=== PATIENT | female | born 1965 | race Caucasian/White ===

== ENCOUNTER 2017-07-22 10:31 | Inpatient (IN) | payer OTHER ==
[2017-07-22 11:34] VITALS: BMI 22.6
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
[2017-07-22] MEDS ORDERED: METHADONE HCL 10 MG TABLET (FOR DETOX USE ONLY) PO ONE ×2 (14:15→23:00)
[2017-07-22] MEDS ORDERED: MENTHOL/PHENOL 1 EACH UD MM PRN (14:15)
[2017-07-22] MEDS ORDERED: guaiFENesin/D-METHORPHAN HB 10 ML UNIT-DOSE CUPS PO PRN (14:15)
[2017-07-22] MEDS ORDERED: IBUPROFEN 400 MG TABLET (FP) PO PRN (14:15)
[2017-07-22] MEDS ORDERED: P-EPHED 60MG/TRIPROLIDI 2.5MG TABLET PO PRN (14:15)
[2017-07-22] MEDS ORDERED: MAGNESIUM HYDROX 2400MG/30ML ORAL SUSPENSION 30 ML CUP PO PRN (14:15)
[2017-07-22] MEDS ORDERED: ACETAMINOPHEN 325 MG TABLET (FP) PO PRN (14:15)
[2017-07-22] MEDS ORDERED: NICOTINE POLACRILEX 2 MG GUM BC PRN (14:15)
[2017-07-22] MEDS ORDERED: MAGNESIUM CITRATE 300 ML BOTTLE PO PRN (14:15)
[2017-07-22] MEDS ORDERED: MAG HYDROX/AL HYDROX/SIMETH 30 ML UNIT-DOSE CUP PO PRN (14:15)
[2017-07-22] MEDS ORDERED: LOPERAMIDE HCL 2 MG CAPSULE PO PRN (14:15)
[2017-07-22] MEDS ORDERED: hydrOXYzine PAMOATE 50 MG CAPSULE (FP) PO PRN (14:15)
[2017-07-22] MEDS ORDERED: diazePAM 5 MG TABLET PO ONE (15:00)
[2017-07-22] MEDS: BACITRACIN 0.9 GM PACKET TP SCH (15:09)
[2017-07-22] MEDS: NICOTINE 14 MG/24 HOURS TOPICAL PATCH TD SCH (15:09)
--- NOTE | 2017-07-22 16:20 | CONSULT ---
[facility] Psychiatric Consult - Data Date of interview: 07/22/17 Admission source: [facility] Identifying data: Readmission to [facility] for this 51 y/o AA female seeking detox treatment on for heroin,cocaine and benzodiazepine dependence.Patient is ,a mother of four,domiciled,unemployed and supported on [employer] funds. Substance Abuse History: Confirmed by the patient in this interview. Smoking Cessation. Smoking history: Current every day smoker. Have you smoked in the past 12 months: Yes. Aproximately how many cigarettes per day: 4. Cigars Per Day: 0. Hx Chewing Tobacco Use: No. Initiated information on smoking cessation : Yes. 'Breaking Loose' booklet given: 07/22/17 (GIVEN ON UNIT.). - Substance & Tx. History. Hx Alcohol Use: No. Hx Substance Use: Yes. Substance Use Type : Cocaine, Heroin, Tranquilizers. Hx Substance Use Treatment: Yes (Previous Rehab admission at [facility] (2014); previous Detox admission (2004).). - Substances Abused. Crack. Route: Smoking. Frequency: Daily. Amount used: $80. Age of first use: 21. Date of Last Use: 07/21/17. Heroin. Route: Injection. Frequency: Daily. Amount used: 8 bags. Age of first use: 19. Date of Last Use: 07/21/17. Klonopin. Route: Oral. Frequency: Daily. Amount used: 3 mg. Age of first use: 48. Date of Last Use: 07/22/17 Medical History: HIV infection since 1988,hepatitis C,gastritis,anemia and diabetes mellitus. Psychiatric History: No reported history of psychiatric hospitalizations.Patient indicates that she used to be followed at [facility] in the [place].Diagnosed with Mood Disorder and treated in the past with seroquel (months ago as per self-report).Dropped out of [facility] care more than four months ago.Ms Gonzalez states that she is interested in resuming seroquel for chronic insomnia.Patient is an unreliable historian.Review of pharmacy claims indicates recent scripts for abilify,zolpidem,clonazepam (06/09/17) at [facility].Ms Gonzalez is made aware of this discrepancy.No reaction.Patient maintains preference for seroquel. Physical/Sexual Abuse/Trauma History: Patient denies. Additional Comment: Urine Drug Screen Results: DIA-Cocaine, OPI-Opiates, BZO- Benzodiazepines, MTD-Methadone, TCA-Tricyclic Antidepressant, OXY- Oxycodone.Noted. Mental Status Exam - Mental Status Exam Alert and Oriented to: Time, Place, Person Cognitive Function: Good Patient Appearance: Well Groomed (thin habitus,frail appearance,short stature) Mood: Withdrawn, Hopeful Affect: Constricted Patient Behavior: Appropriate, Cooperative Speech Pattern: Clear Voice Loudness: Normal Thought Process: Goal Oriented Thought Disorder: Not Present Hallucinations: Denies Suicidal Ideation: Denies Homicidal Ideation: Denies Insight/Judgement: Poor Sleep: Poorly, Difficulty falling asleep Appetite: Good Muscle strength/Tone: Normal Gait/Station: Normal Psychiatric Findings - Problem List ([place] 1, 2,3) (1) Opioid dependence with withdrawal Current Visit: Yes Status: Acute (2) Cocaine dependence, uncomplicated Current Visit: Yes Status: Acute (3) Sedative, hypnotic or anxiolytic dependence with withdrawal, uncomplicated Current Visit: Yes Status: Acute (4) Nicotine dependence Current Visit: Yes Status: Chronic Qualifiers: Nicotine product type: cigarettes Substance use status: uncomplicated Qualified Code(s): F17.210 - Nicotine dependence, cigarettes, uncomplicated (5) Substance induced mood disorder Current Visit: Yes Status: Acute (6) Asthma Current Visit: Yes Status: Chronic Qualifiers: Asthma severity: mild persistent Asthma complication type: uncomplicated Qualified Code(s): J45.30 - Mild persistent asthma, uncomplicated (7) Diabetes mellitus type II, non insulin dependent Current Visit: Yes Status: Chronic (8) HCV antibody positive Current Visit: Yes Status: Chronic (9) HIV (human immunodeficiency virus infection) Current Visit: Yes Status: Chronic (10) Insomnia Current Visit: Yes Status: Acute - Initial Treatment Plan Initial Treatment Plan: Psychoeducation.Detoxification.Seroquel 50 mg po hs.Side effects/benefits discussed with the patient.She agrees with this careplan.Observation.
[2017-07-22] MEDS: metFORMIN HCL 500 MG TABLET (FP) PO SCH (17:38)
[2017-07-22] MEDS ORDERED: QUEtiapine FUMARATE 50 MG TABLET PO SCH (22:00)
[2017-07-22] MEDS: MONTELUKAST NA 10 MG TABLET PO SCH (22:35)
[2017-07-22] MEDS: THIAMINE HCL 100 MG TABLET (FP) PO SCH (22:35)
[2017-07-22] MEDS: diazePAM 5 MG TABLET PO SCH (22:35)
[2017-07-23] MEDS ORDERED: METHADONE HCL 10 MG TABLET ONE (04:48)
[2017-07-23] MEDS ORDERED: METHADONE HCL 40 MG DISPERSABLE TABLET ONE (04:48)
[2017-07-23] MEDS: diazePAM 5 MG TABLET PO SCH ×3 (05:24→22:30)
[2017-07-23] MEDS: METHADONE 80 MG, METHADONE 20 MG PO SCH (05:24)
[2017-07-23] MEDS ORDERED: METHADONE HCL 10 MG TABLET PO SCH (06:00)
[2017-07-23] MEDS: metFORMIN HCL 500 MG TABLET (FP) PO SCH ×2 (06:43→17:35)
--- NOTE | 2017-07-23 08:57 | PN ---
Psychiatric Progress Note Vital Signs: Vital Signs Period Temp Pulse Resp BP Sys/Hoang Pulse Ox Last 24 Hr 97.3 F-99.3 F 99-105 18-20 98-105/64-66 Date of Session: 07/23/17 Chief Complaint:: Insomnia HPI: Patient reports taking prior to admission Seroquel 100mg po qhs with good response Current Medications: Active Medications Generic Name Dose Route Start Last Admin Trade Name Freq PRN Reason Stop Dose Admin Acetaminophen 650 mg 07/22/17 14:15 07/22/17 15:08 Tylenol - PO 650 mg Q4H PRN Administration FEVER OR PAIN Al Hydroxide/Mg Hydroxide 30 ml 07/22/17 14:15 Mylanta Oral Suspension - PO Q6H PRN DYSPEPSIA Albuterol Sulfate 2 puff 07/22/17 14:21 Ventolin Hfa Inhaler - IH Q4H PRN ASTHMA Bacitracin 0.9 gm 07/22/17 15:00 07/22/17 15:09 Bacitracin - TP 0.9 gm DAILY RICKY Administration Diazepam 10 mg 07/22/17 14:15 Valium - PO 07/25/17 14:16 Q4H PRN WITHDRAWAL(CONT SUBST) Diazepam 5 mg 07/22/17 22:00 07/23/17 05:24 Valium - PO 07/23/17 22:01 5 mg TID RICKY Administration Diazepam 5 mg 07/24/17 10:00 Valium - PO 07/25/17 22:01 BID RICKY Diazepam 5 mg 07/26/17 10:00 Valium - PO 07/26/17 10:01 DAILY RICKY Diphenhydramine HCl 50 mg 07/22/17 14:15 Benadryl - PO HSMR1 PRN INSOMNIA Eucalyptus/Menthol/Phenol/Sorbitol 1 each 07/22/17 14:15 Cepastat Lozenge - MM Q4H PRN SORE THROAT Guaifenesin 10 ml 07/22/17 14:15 Robitussin Dm - PO Q6H PRN COUGH Hydroxyzine Pamoate 50 mg 07/22/17 14:15 Vistaril - PO Q4H PRN AGITATION Ibuprofen 400 mg 07/22/17 14:15 Motrin - PO Q6H PRN SEVERE PAIN Loperamide HCl 4 mg 07/22/17 14:15 Imodium - PO Q6H PRN DIARRHEA Magnesium Citrate 300 ml 07/22/17 14:15 Citroma - PO Q48H PRN CONSTIPATION Magnesium Hydroxide 30 ml 07/22/17 14:15 Milk Of Magnesia - PO DAILY PRN CONSTIPATION Metformin HCl 500 mg 07/22/17 16:30 07/23/17 06:43 Glucophage - PO 500 mg BIDAC RICKY Administration Methadone HCl 80 mg/ Methadone 100 mg 07/23/17 06:00 07/23/17 05:24 HCl 20 mg PO 100 mg DAILY@0600 RICKY Administration Montelukast Sodium 10 mg 07/22/17 22:00 07/22/17 22:35 Singulair - PO 10 mg HS RICKY Administration Nicotine 14 mg 07/22/17 15:00 07/22/17 15:09 Nicoderm Patch - TD 14 mg DAILY RICKY Administration Nicotine Polacrilex 2 mg 07/22/17 14:15 Nicorette Gum - BC Q2H PRN NICOTINE REPLACEMENT RX Multivit/Folic Acid/Iron 1 tab 07/23/17 10:00 Vitamins (Sjr) - PO DAILY RICKY Pseudoephedrine/Triprolidine 1 combo 07/22/17 14:15 Actifed - PO TID PRN NASAL CONGESTION Quetiapine Fumarate 50 mg 07/22/17 22:00 07/22/17 22:35 Seroquel - PO 50 mg HS RICKY Administration Thiamine HCl 100 mg 07/22/17 22:00 07/22/17 22:35 Vitamin B1 - PO 100 mg HS RICKY Administration Medication(s) Change(s): Seroquel 100mg po qhs Mental Status Exam - Mental Status Exam Alert and Oriented to: Place, Person Cognitive Function: Fair Patient Appearance: Unkempt Mood: Anxious Affect: Mood Congruent Patient Behavior: Cooperative Speech Pattern: Appropriate Voice Loudness: Normal Thought Process: Goal Oriented Thought Disorder: Being Controlled Hallucinations: Denies Suicidal Ideation: Denies Homicidal Ideation: Denies Insight/Judgement: Fair Sleep: Difficulty falling asleep Appetite: Fair Muscle strength/Tone: Mild Hypotonicity Gait/Station: Shuffling Additional Comments: Seroquel 100mg po qhs Psychiatric Treatment Plan - Problem List (1) Cocaine dependence, uncomplicated Current Visit: Yes (2) Opioid dependence with withdrawal Current Visit: Yes (3) Sedative, hypnotic or anxiolytic dependence with withdrawal, uncomplicated Current Visit: Yes (4) Substance induced mood disorder Current Visit: Yes (5) Methadone maintenance therapy patient Current Visit: Yes Comment: last dose today with methadone 110mg. (6) Nicotine dependence Current Visit: Yes Qualifiers: Nicotine product type: cigarettes Substance use status: uncomplicated Qualified Code(s): F17.210 - Nicotine dependence, cigarettes, uncomplicated (7) Cocaine dependence Current Visit: No (8) Major depressive disorder, recurrent, moderate Current Visit: No (9) Opioid abuse Current Visit: No (10) Opioid dependence Current Visit: No Initial treatment plan: Seroquel 100mg po qhs
[2017-07-23] MEDS ORDERED: METHADONE HCL 10 MG TABLET (FOR DETOX USE ONLY) PO SCH (10:00)
[2017-07-23 10:04] LABS: MCH 25.2 pg (25.7-33.7); MCHC 31.6 g/dl (32.0-36.0); MEAN CELL VOLUME 79.8 fl (80-96); MEAN PLT VOLUME 10.1 fl (7.5-11.1); PLATELET COUNT 197 K/MM3 (134-434); RDW 13.9 % (11.6-15.6); WHITE BLOOD COUNT 3.6 K/mm3 (4.0-10.0)
[2017-07-23 10:04] LABS: URINE APPEARANCE TURBID; URINE BILIRUBIN NEGATIVE (NEGATIVE); URINE BLOOD NEGATIVE (NEGATIVE); URINE COLOR YELLOW; URINE GLUCOSE (UA) NEGATIVE (NEGATIVE); URINE KETONE NEGATIVE (NEGATIVE); URINE NITRITE NEGATIVE (NEGATIVE); URINE UROBILINOGEN NEGATIVE mg/dL (0.2-1.0)
[2017-07-23 10:07] LABS: URINE LEUK ESTERASE 1+ (NEGATIVE); URINE PROTEIN 1+ (NEGATIVE)
[2017-07-23 10:21] LABS: URINE MUCUS MANY
[2017-07-23 10:29] LABS: ALBUMIN 3.9 g/dl (3.4-5.0); ALK PHOS 72 U/L (45-117); ANION GAP 6 (8-16); BILIRUBIN,TOTAL 0.6 mg/dL (0.2-1.0); CALCIUM 9.1 mg/dL (8.5-10.1); CO2 35 mmol/L (21-32); CREATININE 0.9 mg/dL (0.55-1.02); GLUCOSE,RANDOM 72 mg/dL (74-106); SGOT/AST 31 U/L (15-37); SGPT/ALT 27 U/L (12-78); TOT PROT 7.6 g/dl (6.4-8.2)
[2017-07-23] MEDS: NICOTINE 14 MG/24 HOURS TOPICAL PATCH TD SCH (10:56)
[2017-07-23] MEDS: diazePAM 5 MG TABLET PO PRN (10:56)
[2017-07-23] MEDS: BACITRACIN 0.9 GM PACKET TP SCH (10:56)
[2017-07-23] MEDS: PRENATAL VITAMINS W/ FOLIC ACID TABLET (FP) PO SCH (10:56)
--- NOTE | 2017-07-23 11:18 | EKG ---
Test Reason : Blood Pressure : / mmHG Vent. Rate : 076 BPM Atrial Rate : 076 BPM P-R Int : 154 ms QRS Dur : 078 ms QT Int : 394 ms P-R-T Axes : 035 044 -31 degrees QTc Int : 443 ms NORMAL SINUS RHYTHM NONSPECIFIC T WAVE ABNORMALITY ABNORMAL ECG WHEN COMPARED WITH ECG OF 28-AUG-2005 16:42, SINUS RHYTHM HAS REPLACED ECTOPIC ATRIAL RHYTHM Confirmed by GARRETT CORONA MD ([id number]) on 07/23/2017 11:18:00 AM Referred By: Confirmed By:GARRETT CORONA MD
--- NOTE | 2017-07-23 12:14 | PN ---
[facility] CIWA - CIWA Score Nausea/Vomitin-No Nausea/No Vomiting Muscle Tremors: 4-Moderate,w/Arms Extend Anxiety: 3 Agitation: 4-Moderately Restless Paroxysmal Sweats: 3 Orientation: 0-Oriented Tacttile Disturbances: 0-None Auditory Disturbances: 0-None Visual Disturbances: 0-None Headache: 0-None Present CIWA-Ar Total Score: 14 S COWS - Scale Resting Pulse: 0= [place] 80 or Below Sweatin=Flushed/Facial Moisture Restless Observation: 1= Difficult to Sit Still Pupil Size: 0= Normal to Room Light Bone or Joint Aches: 1= Mild Discomfort Runny Nose/ Eye Tearin= Nasal Congestion GI Upset > 30mins: 0= None Tremor Observation of Outstretched Hands: 2= Slight Tremor Visible Yawning Observation: 1= 1-2x During Session Anxiety or Irritability: 1=Feels Anxious/Irritable Goose Flesh Skin: 3=Piloerection COWS Score: 12 S Progress Note (SOAP) Subjective: bodyaches sweats shakes interrupted sleep agitation Objective: 07/23/17 12:13 Vital Signs Temperature 98.6 F 07/23/17 10:05 Pulse Rate 100 H 07/23/17 10:05 Respiratory Rate 20 07/23/17 10:05 Blood Pressure 95/50 07/23/17 10:05 O2 Sat by Pulse Oximetry (%) Laboratory Tests 07/22/17 07/23/17 07/23/17 12:49 05:23 06:00 WBC 3.6 L D RBC 5.08 Hgb 12.8 Hct 40.6 MCV 79.8 L MCH 25.2 L MCHC 31.6 L RDW 13.9 Plt Count 197 D MPV 10.1 D Sodium Potassium Chloride Carbon Dioxide Anion Gap BUN Creatinine Creat Clearance w eGFR POC Glucometer 75 88 Random Glucose Calcium Total Bilirubin AST ALT Alkaline Phosphatase Total Protein Albumin Urine Color Urine Appearance Urine pH Urine Protein Urine Glucose (UA) Urine Ketones Urine Blood Urine Nitrite Urine Bilirubin Urine Urobilinogen Ur Leukocyte Esterase Urine RBC Urine WBC Ur Epithelial Cells Amorphous Urates Urine Mucus 07/23/17 07/23/17 06:00 08:00 WBC RBC Hgb Hct MCV MCH MCHC RDW Plt Count MPV Sodium 139 Potassium 4.1 Chloride 98 Carbon Dioxide 35 H D Anion Gap 6 L BUN 9 Creatinine 0.9 Creat Clearance w eGFR > 60 POC Glucometer Random Glucose 72 L Calcium 9.1 Total Bilirubin 0.6 D AST 31 D ALT 27 D Alkaline Phosphatase 72 Total Protein 7.6 D Albumin 3.9 D Urine Color Yellow Urine Appearance Turbid Urine pH 5.0 D Urine Protein 1+ H Urine Glucose (UA) Negative Urine Ketones Negative Urine Blood Negative Urine Nitrite Negative Urine Bilirubin Negative Urine Urobilinogen Negative Ur Leukocyte Esterase 1+ H Urine RBC None Urine WBC None Ur Epithelial Cells Few Amorphous Urates Many Urine Mucus Many awake/alert ambulating no acute distress Assessment: 07/23/17 12:13 withdrawal sx Plan: continue detox increase fluids
[2017-07-23] MEDS: MONTELUKAST NA 10 MG TABLET PO SCH (22:29)
[2017-07-23] MEDS: diphenhydrAMINE HCL 50 MG CAPSULE PO PRN (22:30)
[2017-07-23] MEDS: THIAMINE HCL 100 MG TABLET (FP) PO SCH (22:30)
[2017-07-23] MEDS: QUEtiapine FUMARATE 100 MG TABLET (FP) PO SCH (22:30)
[2017-07-23] MEDS: ALBUTEROL SO4 6.7 GM HFA INHALER IH PRN (22:31)
[2017-07-24] MEDS ORDERED: METHADONE HCL 40 MG DISPERSABLE TABLET ONE (04:59)
[2017-07-24] MEDS ORDERED: METHADONE HCL 10 MG TABLET ONE (05:00)
[2017-07-24] MEDS: METHADONE 80 MG, METHADONE 20 MG PO SCH (05:48)
[2017-07-24] MEDS: ALBUTEROL SO4 6.7 GM HFA INHALER IH PRN (05:50)
[2017-07-24] MEDS: metFORMIN HCL 500 MG TABLET (FP) PO SCH ×2 (08:17→17:30)
[2017-07-24] MEDS ORDERED: METHADONE HCL 5 MG TABLET (FOR DETOX USE ONLY) PO SCH (10:00)
[2017-07-24] MEDS: PRENATAL VITAMINS W/ FOLIC ACID TABLET (FP) PO SCH (10:56)
[2017-07-24] MEDS: NICOTINE 14 MG/24 HOURS TOPICAL PATCH TD SCH (10:56)
[2017-07-24] MEDS: BACITRACIN 0.9 GM PACKET TP SCH (10:56)
[2017-07-24] MEDS: diazePAM 5 MG TABLET PO SCH ×2 (10:56→22:28)
[2017-07-24] MEDS: LIDOCAINE 5% TOPICAL PATCH TP SCH (10:57)
--- NOTE | 2017-07-24 12:17 | PN ---
[facility] CIWA - CIWA Score Nausea/Vomitin-No Nausea/No Vomiting Muscle Tremors: 4-Moderate,w/Arms Extend Anxiety: 3 Agitation: 3 Paroxysmal Sweats: 3 Orientation: 0-Oriented Tacttile Disturbances: 0-None Auditory Disturbances: 0-None Visual Disturbances: 0-None Headache: 0-None Present CIWA-Ar Total Score: 13 [facility] COWS - Scale Resting Pulse: 1= [place] 81-100 Sweatin= Chills/Flushing Restless Observation: 1= Difficult to Sit Still Pupil Size: 0= Normal to Room Light Bone or Joint Aches: 2= Severe Diffuse Aches Runny Nose/ Eye Tearin= Nasal Congestion GI Upset > 30mins: 0= None Tremor Observation of Outstretched Hands: 2= Slight Tremor Visible Yawning Observation: 2= >3x During Session Anxiety or Irritability: 1=Feels Anxious/Irritable Goose Flesh Skin: 0=Smooth Skin COWS Score: 11 [facility] Progress Note (SOAP) Subjective: shakes sweats body aches irritable Objective: 07/24/17 12:16 Vital Signs Temperature 99.1 F 07/24/17 10:38 Pulse Rate 92 H 07/24/17 10:38 Respiratory Rate 18 07/24/17 10:38 Blood Pressure 106/50 07/24/17 10:38 O2 Sat by Pulse Oximetry (%) Laboratory Tests 07/22/17 07/23/17 07/23/17 12:49 05:23 06:00 WBC 3.6 L D RBC 5.08 Hgb 12.8 Hct 40.6 MCV 79.8 L MCH 25.2 L MCHC 31.6 L RDW 13.9 Plt Count 197 D MPV 10.1 D Sodium Potassium Chloride Carbon Dioxide Anion Gap BUN Creatinine Creat Clearance w eGFR POC Glucometer 75 88 Random Glucose Calcium Total Bilirubin AST ALT Alkaline Phosphatase Total Protein Albumin Urine Color Urine Appearance Urine pH Ur Specific [place] Urine Protein Urine Glucose (UA) Urine Ketones Urine Blood Urine Nitrite Urine Bilirubin Urine Urobilinogen Ur Leukocyte Esterase Urine RBC Urine WBC Ur Epithelial Cells Amorphous Urates Urine Mucus RPR Titer 07/23/17 07/23/17 07/23/17 06:00 06:00 08:00 WBC RBC Hgb Hct MCV MCH MCHC RDW Plt Count MPV Sodium 139 Potassium 4.1 Chloride 98 Carbon Dioxide 35 H D Anion Gap 6 L BUN 9 Creatinine 0.9 Creat Clearance w eGFR > 60 POC Glucometer Random Glucose 72 L Calcium 9.1 Total Bilirubin 0.6 D AST 31 D ALT 27 D Alkaline Phosphatase 72 Total Protein 7.6 D Albumin 3.9 D Urine Color Yellow Urine Appearance Turbid Urine pH 5.0 D Ur Specific [place] >= 1.030 H Urine Protein 1+ H Urine Glucose (UA) Negative Urine Ketones Negative Urine Blood Negative Urine Nitrite Negative Urine Bilirubin Negative Urine Urobilinogen Negative Ur Leukocyte Esterase 1+ H Urine RBC None Urine WBC None Ur Epithelial Cells Few Amorphous Urates Many Urine Mucus Many RPR Titer Nonreactive 07/24/17 05:47 WBC RBC Hgb Hct MCV MCH MCHC RDW Plt Count MPV Sodium Potassium Chloride Carbon Dioxide Anion Gap BUN Creatinine Creat Clearance w eGFR POC Glucometer 82 Random Glucose Calcium Total Bilirubin AST ALT Alkaline Phosphatase Total Protein Albumin Urine Color Urine Appearance Urine pH Ur Specific [place] Urine Protein Urine Glucose (UA) Urine Ketones Urine Blood Urine Nitrite Urine Bilirubin Urine Urobilinogen Ur Leukocyte Esterase Urine RBC Urine WBC Ur Epithelial Cells Amorphous Urates Urine Mucus RPR Titer awake/alert ambulating no acute distress Assessment: 07/24/17 12:16 withdrawal sx Plan: continue detox increase fluids lidocaine patch motrin 600mg prn
[2017-07-24] MEDS: QUEtiapine FUMARATE 100 MG TABLET (FP) PO SCH (22:28)
[2017-07-24] MEDS: LIDOCAINE PATCH REMOVAL MC SCH (22:28)
[2017-07-24] MEDS: MONTELUKAST NA 10 MG TABLET PO SCH (22:28)
[2017-07-24] MEDS: THIAMINE HCL 100 MG TABLET (FP) PO SCH (22:28)
[2017-07-25] MEDS ORDERED: METHADONE HCL 10 MG TABLET ONE (05:11)
[2017-07-25] MEDS ORDERED: METHADONE HCL 40 MG DISPERSABLE TABLET ONE (05:11)
[2017-07-25] MEDS: METHADONE 80 MG, METHADONE 20 MG PO SCH (07:19)
[2017-07-25] MEDS: diazePAM 5 MG TABLET PO PRN (07:28)
[2017-07-25] MEDS: metFORMIN HCL 500 MG TABLET (FP) PO SCH ×2 (07:28→17:39)
[2017-07-25] MEDS: LIDOCAINE 5% TOPICAL PATCH TP SCH (11:16)
[2017-07-25] MEDS: PRENATAL VITAMINS W/ FOLIC ACID TABLET (FP) PO SCH (11:16)
[2017-07-25] MEDS: diazePAM 5 MG TABLET PO SCH ×2 (11:49→22:41)
[2017-07-25] MEDS: NICOTINE 14 MG/24 HOURS TOPICAL PATCH TD SCH (12:44)
[2017-07-25] MEDS: BACITRACIN 0.9 GM PACKET TP SCH (12:44)
--- NOTE | 2017-07-25 16:16 | PN ---
[facility] Progress Note (SOAP) Subjective: ALERT,FEEL WEAK, Objective: 07/25/17 16:15 Vital Signs Temperature 98.2 F 07/25/17 15:03 Pulse Rate 75 07/25/17 15:03 Respiratory Rate 18 07/25/17 15:03 Blood Pressure 128/52 07/25/17 15:03 O2 Sat by Pulse Oximetry (%) Assessment: 07/25/17 16:15 WITHDRAWAL SYMPTOM Plan: CONTINUE DETOX
--- NOTE | 2017-07-25 16:23 | PN ---
Psychiatric Progress Note Vital Signs: Vital Signs Period Temp Pulse Resp BP Sys/Hoang Pulse Ox Last 24 Hr 98.2 F-99.5 F 75-102 16-20 93-128/52-65 Date of Session: 07/25/17 Chief Complaint:: " Give me less seroquel.I can barely walk." HPI: Patient is oversedated.Unsteady. ROS: Drowsy,sedated.Unsteady gait. Current Medications: Active Medications Generic Name Dose Route Start Last Admin Trade Name Freq PRN Reason Stop Dose Admin Acetaminophen 650 mg 07/22/17 14:15 07/22/17 15:08 Tylenol - PO 650 mg Q4H PRN Administration FEVER OR PAIN Al Hydroxide/Mg Hydroxide 30 ml 07/22/17 14:15 Mylanta Oral Suspension - PO Q6H PRN DYSPEPSIA Albuterol Sulfate 2 puff 07/22/17 14:21 07/24/17 05:50 Ventolin Hfa Inhaler - IH 2 inhaler Q4H PRN Administration ASTHMA Bacitracin 0.9 gm 07/22/17 15:00 07/25/17 12:44 Bacitracin - TP Not Given DAILY RICKY Cyclobenzaprine HCl 10 mg 07/24/17 09:00 Flexeril - PO TID PRN MUSCLE SPASMS Diazepam 5 mg 07/24/17 10:00 07/25/17 11:49 Valium - PO 07/25/17 22:01 Not Given BID RICKY Diazepam 5 mg 07/26/17 10:00 Valium - PO 07/26/17 10:01 DAILY RICKY Diphenhydramine HCl 50 mg 07/22/17 14:15 07/23/17 22:30 Benadryl - PO 50 mg HSMR1 PRN Administration INSOMNIA Eucalyptus/Menthol/Phenol/Sorbitol 1 each 07/22/17 14:15 Cepastat Lozenge - MM Q4H PRN SORE THROAT Guaifenesin 10 ml 07/22/17 14:15 Robitussin Dm - PO Q6H PRN COUGH Hydroxyzine Pamoate 50 mg 07/22/17 14:15 07/23/17 17:35 Vistaril - PO 50 mg Q4H PRN Administration AGITATION Ibuprofen 600 mg 07/24/17 09:00 Motrin - PO Q6H PRN SEVERE PAIN Lidocaine 1 patch 07/24/17 10:00 07/25/17 11:16 Lidoderm Patch - TP 1 patch DAILY RICKY Administration Loperamide HCl 4 mg 07/22/17 14:15 Imodium - PO Q6H PRN DIARRHEA Magnesium Citrate 300 ml 07/22/17 14:15 Citroma - PO Q48H PRN CONSTIPATION Magnesium Hydroxide 30 ml 07/22/17 14:15 Milk Of Magnesia - PO DAILY PRN CONSTIPATION Metformin HCl 500 mg 07/22/17 16:30 07/25/17 07:28 Glucophage - PO 500 mg BIDAC RICKY Administration Methadone HCl 80 mg/ Methadone 100 mg 07/23/17 06:00 07/25/17 07:19 HCl 20 mg PO 100 mg DAILY@0600 RICKY Administration Miscellaneous 1 each 07/24/17 22:00 07/24/17 22:28 Lidoderm Patch Removal MC 1 each DAILY@2200 RICKY Administration Montelukast Sodium 10 mg 07/22/17 22:00 07/24/17 22:28 Singulair - PO 10 mg HS RICKY Administration Nicotine 14 mg 07/22/17 15:00 07/25/17 12:44 Nicoderm Patch - TD Not Given DAILY RICKY Nicotine Polacrilex 2 mg 07/22/17 14:15 Nicorette Gum - BC Q2H PRN NICOTINE REPLACEMENT RX Multivit/Folic Acid/Iron 1 tab 07/23/17 10:00 07/25/17 11:16 Vitamins (Sjr) - PO 1 tab DAILY RICKY Administration Pseudoephedrine/Triprolidine 1 combo 07/22/17 14:15 Actifed - PO TID PRN NASAL CONGESTION Quetiapine Fumarate 100 mg 07/23/17 22:00 07/24/17 22:28 Seroquel - PO 100 mg HS RICKY Administration Thiamine HCl 100 mg 07/22/17 22:00 07/24/17 22:28 Vitamin B1 - PO 100 mg HS RICKY Administration Medication(s) Change(s): Hold seroquel. Current Side Effect: Yes (oversedation.) Lab tests ordered: No Lab tests reviewed: Yes Provider note:: Asked to re-consult on this patient because of marked sedation.Patient is on seroquel 100 mg po hs.Met with patient.Ms Lisa denny taht she has difficulty moving around due to drowsiness and " woobbly " legs.It has become clear that this patient is not able to handle 100 mg of seroquel in addition to methadone.In the current situation,the patient is at risk for falls / physical injuries.Seroquel is discontinued. Total face to face time:: 15 Mental Status Exam - Mental Status Exam Alert and Oriented to: Place, Person Cognitive Function: Impaired Patient Appearance: Well Groomed Mood: Withdrawn, Euthymic Affect: Constricted Patient Behavior: Sedated (heavily) Speech Pattern: Delayed, Slurred (slow) Voice Loudness: Mildly Soft/Quiet Thought Process: Disorganized Thought Disorder: Not Present Hallucinations: Denies Suicidal Ideation: Denies Homicidal Ideation: Denies Insight/Judgement: Fair Sleep: Well Appetite: Fair Gait/Station: Other (unsteady) Psychiatric Treatment Plan - Problem List (1) Opioid dependence with withdrawal Current Visit: Yes (2) Cocaine dependence, uncomplicated Current Visit: Yes (3) Sedative, hypnotic or anxiolytic dependence with withdrawal, uncomplicated Current Visit: Yes (4) Nicotine dependence Current Visit: Yes Qualifiers: Nicotine product type: cigarettes Substance use status: uncomplicated Qualified Code(s): F17.210 - Nicotine dependence, cigarettes, uncomplicated (5) Substance induced mood disorder Current Visit: Yes (6) Asthma Current Visit: Yes Qualifiers: Asthma severity: mild persistent Asthma complication type: uncomplicated Qualified Code(s): J45.30 - Mild persistent asthma, uncomplicated (7) Diabetes mellitus type II, non insulin dependent Current Visit: Yes (8) HCV antibody positive Current Visit: Yes (9) HIV (human immunodeficiency virus infection) Current Visit: Yes (10) Insomnia Current Visit: Yes
[2017-07-25] MEDS: THIAMINE HCL 100 MG TABLET (FP) PO SCH (22:40)
[2017-07-25] MEDS: CYCLOBENZAPRINE HCL 10 MG TABLET (FP) PO PRN (22:41)
[2017-07-25] MEDS: LIDOCAINE PATCH REMOVAL MC SCH (22:41)
[2017-07-25] MEDS: MONTELUKAST NA 10 MG TABLET PO SCH (22:41)
[2017-07-25] MEDS: diphenhydrAMINE HCL 50 MG CAPSULE PO PRN (22:43)
[2017-07-26] MEDS ORDERED: METHADONE HCL 40 MG DISPERSABLE TABLET ONE (04:15)
[2017-07-26] MEDS ORDERED: METHADONE HCL 10 MG TABLET ONE (04:16)
[2017-07-26] MEDS: metFORMIN HCL 500 MG TABLET (FP) PO SCH ×2 (06:38→17:04)
[2017-07-26] MEDS: METHADONE 80 MG, METHADONE 20 MG PO SCH (06:38)
[2017-07-26] MEDS: IBUPROFEN 600 MG TABLET (FP) PO PRN ×2 (06:40→22:37)
[2017-07-26] MEDS ORDERED: METHADONE HCL 10 MG TABLET (FOR DETOX USE ONLY) PO SCH (10:00)
[2017-07-26] MEDS ORDERED: diazePAM 5 MG TABLET PO SCH (10:00)
[2017-07-26] MEDS: NICOTINE 14 MG/24 HOURS TOPICAL PATCH TD SCH (10:52)
[2017-07-26] MEDS: LIDOCAINE 5% TOPICAL PATCH TP SCH (10:52)
[2017-07-26] MEDS: PRENATAL VITAMINS W/ FOLIC ACID TABLET (FP) PO SCH (10:52)
[2017-07-26] MEDS: BACITRACIN 0.9 GM PACKET TP SCH (10:52)
[2017-07-26] MEDS: ALBUTEROL SO4 6.7 GM HFA INHALER IH PRN ×2 (13:29→22:39)
--- NOTE | 2017-07-26 15:36 | PN ---
S Progress Note (SOAP) Subjective: ALERT,INTERRUPTED SLEEP Objective: 07/26/17 15:35 Vital Signs Temperature 97.0 F L 07/26/17 14:14 Pulse Rate 90 07/26/17 15:04 Respiratory Rate 18 07/26/17 15:04 Blood Pressure 115/76 07/26/17 15:04 O2 Sat by Pulse Oximetry (%) Assessment: 07/26/17 15:36 WITHDRAWAL SYMPTOM Plan: CONTINUE DETOX,DISCHARGE IN AM
[2017-07-26] MEDS: diphenhydrAMINE HCL 50 MG CAPSULE PO PRN (22:36)
[2017-07-26] MEDS: MONTELUKAST NA 10 MG TABLET PO SCH (22:36)
[2017-07-26] MEDS: LIDOCAINE PATCH REMOVAL MC SCH (22:37)
[2017-07-26] MEDS: CYCLOBENZAPRINE HCL 10 MG TABLET (FP) PO PRN (22:37)
[2017-07-26] MEDS: THIAMINE HCL 100 MG TABLET (FP) PO SCH (23:15)
[2017-07-27] MEDS ORDERED: METHADONE HCL 40 MG DISPERSABLE TABLET ONE (04:02)
[2017-07-27] MEDS ORDERED: METHADONE HCL 10 MG TABLET ONE (04:03)
[2017-07-27] MEDS ORDERED: METHADONE HCL 5 MG TABLET (FOR DETOX USE ONLY) PO SCH (06:00)
[2017-07-27] MEDS: METHADONE 80 MG, METHADONE 20 MG PO SCH (06:08)
[2017-07-27] MEDS: metFORMIN HCL 500 MG TABLET (FP) PO SCH (06:10)
--- NOTE | 2017-07-27 09:57 | DS ---
[facility] Detox Discharge Summary Admission Date: 07/22/17 Discharge Date: 07/27/17 - History Present History: Cocaine Dependence, Opioid Dependence, Sedative Dependence, MMTP - Physical Exam Results Vital Signs: Vital Signs Temperature 97.8 F 07/27/17 06:38 Pulse Rate 85 07/27/17 06:38 Respiratory Rate 18 07/27/17 06:38 Blood Pressure 96/51 07/27/17 06:38 O2 Sat by Pulse Oximetry (%) - Treatment Hospital Course: Detox Protocol Followed, Detoxed Safely, Responded well, Discharged Condition Good, Rehab Referral Accepted - Medication Discharge Medications: Ambulatory Orders Albuterol Sulfate Inhaler - [Ventolin HFA Inhaler -] 2 inh PO Q4H PRN 12/14/14 Metformin HCl [Glucophage -] 500 mg PO BID 12/14/14 Montelukast Na [Singulair -] 10 mg PO HS 12/14/14 Quetiapine Fumarate [Seroquel -] 100 mg PO HS #30 12/20/14 Quetiapine Fumarate [Seroquel] 100 tab PO HS #30 tablet 07/23/17 - Diagnosis (1) Cocaine dependence, uncomplicated Current Visit: Yes Status: Chronic (2) Insomnia Current Visit: Yes Status: Chronic (3) Opioid dependence with withdrawal Current Visit: Yes Status: Chronic (4) Sedative, hypnotic or anxiolytic dependence with withdrawal, uncomplicated Current Visit: Yes Status: Chronic (5) Substance induced mood disorder Current Visit: Yes Status: Acute (6) Asthma Current Visit: Yes Status: Chronic Qualifiers: Asthma severity: mild persistent Asthma complication type: uncomplicated Qualified Code(s): J45.30 - Mild persistent asthma, uncomplicated (7) Diabetes mellitus type II, non insulin dependent Current Visit: Yes Status: Chronic (8) HCV antibody positive Current Visit: Yes Status: Chronic (9) HIV (human immunodeficiency virus infection) Current Visit: Yes Status: Chronic (10) Methadone maintenance therapy patient Current Visit: Yes Status: Chronic (11) Nicotine dependence Current Visit: Yes Status: Chronic Qualifiers: Nicotine product type: cigarettes Substance use status: uncomplicated Qualified Code(s): F17.210 - Nicotine dependence, cigarettes, uncomplicated (12) Cocaine dependence Current Visit: Yes Status: Chronic Qualifiers: Substance use status: uncomplicated Qualified Code(s): F14.20 - Cocaine dependence, uncomplicated (13) Major depressive disorder, recurrent, moderate Current Visit: No Status: Chronic - AMA Did Patient Leave Against Medical Advice: No (pt going home. will f/u with rehab after her PMD visit today)
[2017-07-27 10:19] VITALS: BP 116/73; PULSE 89; TEMP 97.9
== END 2017-07-27 10:00 | disposition home or self-care (01) | DRG 773 ==
LOC: YASAS 10:31 → Y6N 13:10
PROVIDERS: ADMIT Internal Medicine; ATTEND Internal Medicine
PROC: HZ2ZZZZ Detoxification Services for Substance Abuse Treatment (ICD-10-PCS; principal; 2017-07-22)
DX: F11.23 Opioid dependence with withdrawal (principal); F13.230 Sedative, hypnotic or anxiolytic dependence with withdrawal, uncomplicated; F14.20 Cocaine dependence, uncomplicated; F17.210 Nicotine dependence, cigarettes, uncomplicated; F19.24 Other psychoactive substance dependence with psychoactive substance-induced mood disorder; F33.1 Major depressive disorder, recurrent, moderate; J45.30 Mild persistent asthma, uncomplicated; E11.9 Type 2 diabetes mellitus without complications; Z21 Asymptomatic human immunodeficiency virus [HIV] infection status; G47.00 Insomnia, unspecified; B18.2 Chronic viral hepatitis C; Z86.2 Personal history of diseases of the blood and blood-forming organs and certain disorders involving the immune mechanism; Z79.84 Long term (current) use of oral hypoglycemic drugs
CPT/HCPCS: 36415; 80053; 81003; 81015; 85027; 86593; 93005; 93010

== ENCOUNTER 2019-08-24 11:37 | Inpatient (IN) | payer OTHER ==
[2019-08-24 12:25] VITALS: BMI 22.3
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
[2019-08-24] MEDS ORDERED: IBUPROFEN 400 MG TABLET (FP) PO PRN (13:32)
[2019-08-24] MEDS ORDERED: METHOCARBAMOL 500 MG TABLET PO PRN (13:32)
[2019-08-24] MEDS ORDERED: MAG HYDROX/AL HYDROX/SIMETH 30 ML UNIT-DOSE CUP PO PRN (13:32)
[2019-08-24] MEDS ORDERED: MENTHOL/PHENOL 1 EACH UD MM PRN (13:32)
[2019-08-24] MEDS ORDERED: MAGNESIUM CITRATE 300 ML BOTTLE PO PRN (13:32)
[2019-08-24] MEDS ORDERED: MAGNESIUM HYDROX 2400MG/30ML ORAL SUSPENSION 30 ML CUP PO PRN (13:32)
[2019-08-24] MEDS ORDERED: BISMUTH SUBSALICYLATE 262 MG/15 ML BTL PO PRN (13:32)
[2019-08-24] MEDS ORDERED: ONDANSETRON *ODT* 4 MG TABLET SL PRN (13:32)
[2019-08-24] MEDS ORDERED: BUDESONIDE/FORMETEROL FUMARATE 160/4.5 mcg INHALER IH PRN (13:34)
[2019-08-24] MEDS: chlordiazePOXIDE HCL 10 MG CAPSULE PO PRN (15:50)
[2019-08-24] MEDS: ALBUTEROL SO4 8 GM HFA INHALER IH PRN ×2 (17:05→22:18)
[2019-08-24] MEDS: metFORMIN HCL 500 MG TABLET (FP) PO SCH (17:09)
[2019-08-24 17:11] LABS: HEMOGLOBIN 12.3 GM/dL (10.7-15.3); MCH 25.6 pg (25.7-33.7); MCHC 31.5 g/dl (32.0-36.0); MEAN CELL VOLUME 81.3 fl (80-96); MEAN PLT VOLUME 10.3 fl (7.5-11.1); PLATELET COUNT 138 K/MM3 (134-434); RBC 4.79 M/mm3 (3.60-5.2); RDW 14.9 % (11.6-15.6); WHITE BLOOD COUNT 4.3 K/mm3 (4.0-10.0)
[2019-08-24 17:19] LABS: ALBUMIN 3.8 g/dl (3.4-5.0); BILIRUBIN,TOTAL 0.2 mg/dL (0.2-1); BLOOD UREA NITROGEN 13.1 mg/dL (7-18); CALCIUM 8.7 mg/dL (8.5-10.1); CREATININE 0.7 mg/dL (0.55-1.3); POTASSIUM 3.8 mmol/L (3.5-5.1); TOT PROT 7.4 g/dl (6.4-8.2)
[2019-08-24] MEDS: chlordiazePOXIDE HCL 25 MG CAPSULE PO SCH (21:18)
[2019-08-24] MEDS: MONTELUKAST NA 10 MG TABLET PO SCH (22:18)
[2019-08-24] MEDS: THIAMINE HCL 100 MG TABLET (FP) PO SCH (22:18)
[2019-08-24] MEDS: MELATONIN 5 MG TABLETS PO PRN (22:20)
[2019-08-25] MEDS: chlordiazePOXIDE HCL 25 MG CAPSULE PO SCH ×3 (05:44→21:22)
[2019-08-25] MEDS: metFORMIN HCL 500 MG TABLET (FP) PO SCH ×2 (06:27→16:45)
[2019-08-25] MEDS ORDERED: METHADONE 80 MG, METHADONE 20 MG PO ONE ×2 (09:15→10:00)
[2019-08-25] MEDS ORDERED: METHADONE HCL 10 MG TABLET ONE (10:00)
[2019-08-25] MEDS ORDERED: METHADONE HCL 10 MG TABLET PO ONE (10:00)
[2019-08-25] MEDS ORDERED: METHADONE HCL 40 MG DISPERSABLE TABLET ONE (10:01)
[2019-08-25] MEDS: PRENATAL VITAMINS W/ FOLIC ACID TABLET (FP) PO SCH (10:06)
[2019-08-25] MEDS ORDERED: FLU VACCINE QUAD 60 MCG/0.5 ML (MDV 19-20) IM ONE (12:00)
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
--- NOTE | 2019-08-25 14:09 | PN ---
S CIWA - CIWA Score Nausea/Vomitin-Mild Nausea/No Vomiting Muscle Tremors: 2 Anxiety: 3 Agitation: 3 Paroxysmal Sweats: 1-Minimal Palms Moist Orientation: 0-Oriented Tacttile Disturbances: 1-Very Mild Itch/Numbness Auditory Disturbances: 1-Very Mild Visual Disturbances: 0-None Headache: 1-Very Mild CIWA-Ar Total Score: 13 BHS Progress Note (SOAP) Subjective: 53 years old female admitted on 08/24/19 for alcohol withdrawal sx management doing well with librium detox regimen ambulating on hallway social with peers in day room discuss aftercare with staff prefers [facility] Objective: 08/25/19 14:11 Vital Signs Temperature 97.1 F L 08/25/19 13:13 Pulse Rate 53 L 08/25/19 13:13 Respiratory Rate 18 08/25/19 13:13 Blood Pressure 89/62 L 08/25/19 13:13 O2 Sat by Pulse Oximetry (%) Laboratory Last Values WBC 4.3 K/mm3 (4.0-10.0) 08/24/19 14:05 RBC 4.79 M/mm3 (3.60-5.2) 08/24/19 14:05 Hgb 12.3 GM/dL (10.7-15.3) 08/24/19 14:05 Hct 39.0 % (32.4-45.2) 08/24/19 14:05 MCV 81.3 fl (80-96) 08/24/19 14:05 MCH 25.6 pg (25.7-33.7) L 08/24/19 14:05 MCHC 31.5 g/dl (32.0-36.0) L 08/24/19 14:05 RDW 14.9 % (11.6-15.6) 08/24/19 14:05 Plt Count 138 K/MM3 (134-434) D 08/24/19 14:05 MPV 10.3 fl (7.5-11.1) 08/24/19 14:05 Sodium 139 mmol/L (136-145) 08/24/19 14:05 Potassium 3.8 mmol/L (3.5-5.1) 08/24/19 14:05 Chloride 104 mmol/L (98-107) 08/24/19 14:05 Carbon Dioxide 28 mmol/L (21-32) 08/24/19 14:05 Anion Gap 7 MMOL/L (8-16) L 08/24/19 14:05 BUN 13.1 mg/dL (7-18) 08/24/19 14:05 Creatinine 0.7 mg/dL (0.55-1.3) 08/24/19 14:05 Est GFR (CKD-EPI)AfAm 114.65 08/24/19 14:05 Est GFR (CKD-EPI)NonAf 98.92 08/24/19 14:05 POC Glucometer 89 UNITS (80-120) 08/25/19 05:45 Random Glucose 119 mg/dL (74-106) H 08/24/19 14:05 Calcium 8.7 mg/dL (8.5-10.1) 08/24/19 14:05 Total Bilirubin 0.2 mg/dL (0.2-1) 08/24/19 14:05 AST 21 U/L (15-37) 08/24/19 14:05 ALT 20 U/L (13-61) 08/24/19 14:05 Alkaline Phosphatase 78 U/L (45-117) 08/24/19 14:05 Total Protein 7.4 g/dl (6.4-8.2) 08/24/19 14:05 Albumin 3.8 g/dl (3.4-5.0) 08/24/19 14:05 RPR Titer Nonreactive (NONREACTIVE) 08/24/19 14:05 lab noted Assessment: 08/25/19 14:11 alcohol withdrawal sx Plan: continue librium detox regimen
[2019-08-25 14:51] LABS: HYALINE CASTS 3 /lpf (0-8); PH,URINE 7.5 (5.0-8.0); URINE APPEARANCE CLOUDY; URINE BACTERIA 43.8 /hpf (NEGATIVE); URINE BILIRUBIN NEGATIVE (NEGATIVE); URINE COLOR YELLOW; URINE GLUCOSE (UA) NEGATIVE (NEGATIVE); URINE KETONE NEGATIVE (NEGATIVE); URINE LEUK ESTERASE TRACE (NEGATIVE); URINE NITRITE NEGATIVE (NEGATIVE); URINE PROTEIN NEGATIVE (NEGATIVE); URINE RBC 1 /hpf (0-4); URINE UROBILINOGEN 0.2 mg/dL (0.2-1.0); URINE WBC 4 /hpf (0-5)
[2019-08-25] MEDS: ALBUTEROL SO4 8 GM HFA INHALER IH PRN ×2 (15:31→18:30)
[2019-08-25] MEDS: ALBUTEROL SO4 0.083% IH SOL 2.5 MG/3 ML VIAL.NEB. NEB PRN (20:00)
[2019-08-25] MEDS: MONTELUKAST NA 10 MG TABLET PO SCH (22:21)
[2019-08-25] MEDS: THIAMINE HCL 100 MG TABLET (FP) PO SCH (22:21)
[2019-08-25] MEDS: MELATONIN 5 MG TABLETS PO PRN (22:43)
[2019-08-26] MEDS ORDERED: METHADONE HCL 10 MG TABLET ONE (04:18)
[2019-08-26] MEDS ORDERED: METHADONE HCL 40 MG DISPERSABLE TABLET ONE (04:19)
[2019-08-26] MEDS: chlordiazePOXIDE 5 MG CAPSULE PO SCH ×3 (05:28→22:05)
[2019-08-26] MEDS: METHADONE 80 MG, METHADONE 20 MG PO SCH (05:28)
[2019-08-26] MEDS ORDERED: METHADONE HCL 10 MG TABLET PO SCH (06:00)
[2019-08-26] MEDS: metFORMIN HCL 500 MG TABLET (FP) PO SCH ×2 (07:37→17:51)
[2019-08-26] MEDS: PRENATAL VITAMINS W/ FOLIC ACID TABLET (FP) PO SCH (10:24)
[2019-08-26] MEDS: ALBUTEROL SO4 8 GM HFA INHALER IH PRN ×3 (11:06→22:04)
[2019-08-26] MEDS: ALBUTEROL SO4 0.083% IH SOL 2.5 MG/3 ML VIAL.NEB. NEB PRN ×3 (13:44→23:06)
[2019-08-26] MEDS: LIDOCAINE 5% TOPICAL PATCH TP SCH (15:33)
--- NOTE | 2019-08-26 17:25 | PN ---
S CIWA - CIWA Score Nausea/Vomitin-No Nausea/No Vomiting Muscle Tremors: None Anxiety: 3 Agitation: 3 Paroxysmal Sweats: 3 Orientation: 0-Oriented Tacttile Disturbances: 0-None Auditory Disturbances: 0-None Visual Disturbances: 0-None Headache: 0-None Present CIWA-Ar Total Score: 9 BHS Progress Note (SOAP) Subjective: Body Aches, Fatigue. Objective: PATIENT A & O X 3, OBSERVED AMBULATING ON DETOX UNIT UNASSISTED. IN NO ACUTE DISTRESS. 08/26/19 17:24 Vital Signs Temperature 97.6 F 08/26/19 13:28 Pulse Rate 82 08/26/19 13:28 Respiratory Rate 18 08/26/19 13:28 Blood Pressure 99/68 08/26/19 13:28 O2 Sat by Pulse Oximetry (%) Laboratory Tests 08/24/19 08/24/19 08/24/19 13:02 14:05 14:05 WBC 4.3 RBC 4.79 Hgb 12.3 Hct 39.0 MCV 81.3 MCH 25.6 L MCHC 31.5 L RDW 14.9 Plt Count 138 D MPV 10.3 Sodium 139 Potassium 3.8 Chloride 104 Carbon Dioxide 28 Anion Gap 7 L BUN 13.1 Creatinine 0.7 Est GFR (CKD-EPI)AfAm 114.65 Est GFR (CKD-EPI)NonAf 98.92 POC Glucometer Random Glucose 119 H Calcium 8.7 Total Bilirubin 0.2 AST 21 ALT 20 Alkaline Phosphatase 78 Total Protein 7.4 Albumin 3.8 Urine Color Urine Appearance Urine pH Ur Specific [place] Urine Protein Urine Glucose (UA) Urine Ketones Urine Blood Urine Nitrite Urine Bilirubin Urine Urobilinogen Ur Leukocyte Esterase Urine WBC (Auto) Urine RBC (Auto) Urine Casts (Auto) U Epithel Cells (Auto) Urine Bacteria (Auto) POC Urine HCG, Qual Negative RPR Titer 08/24/19 08/24/19 08/24/19 14:05 14:10 16:12 WBC RBC Hgb Hct MCV MCH MCHC RDW Plt Count MPV Sodium Potassium Chloride Carbon Dioxide Anion Gap BUN Creatinine Est GFR (CKD-EPI)AfAm Est GFR (CKD-EPI)NonAf POC Glucometer 130 113 Random Glucose Calcium Total Bilirubin AST ALT Alkaline Phosphatase Total Protein Albumin Urine Color Urine Appearance Urine pH Ur Specific [place] Urine Protein Urine Glucose (UA) Urine Ketones Urine Blood Urine Nitrite Urine Bilirubin Urine Urobilinogen Ur Leukocyte Esterase Urine WBC (Auto) Urine RBC (Auto) Urine Casts (Auto) U Epithel Cells (Auto) Urine Bacteria (Auto) POC Urine HCG, Qual RPR Titer Nonreactive 08/25/19 08/25/19 08/25/19 05:45 11:25 16:22 WBC RBC Hgb Hct MCV MCH MCHC RDW Plt Count MPV Sodium Potassium Chloride Carbon Dioxide Anion Gap BUN Creatinine Est GFR (CKD-EPI)AfAm Est GFR (CKD-EPI)NonAf POC Glucometer 89 108 Random Glucose Calcium Total Bilirubin AST ALT Alkaline Phosphatase Total Protein Albumin Urine Color Yellow Urine Appearance Cloudy Urine pH 7.5 D Ur Specific [place] 1.016 Urine Protein Negative Urine Glucose (UA) Negative Urine Ketones Negative Urine Blood Negative Urine Nitrite Negative Urine Bilirubin Negative Urine Urobilinogen 0.2 Ur Leukocyte Esterase Trace Urine WBC (Auto) 4 Urine RBC (Auto) 1 Urine Casts (Auto) 3 U Epithel Cells (Auto) 4.0 Urine Bacteria (Auto) 43.8 POC Urine HCG, Qual RPR Titer 08/26/19 08/26/19 05:27 16:29 WBC RBC Hgb Hct MCV MCH MCHC RDW Plt Count MPV Sodium Potassium Chloride Carbon Dioxide Anion Gap BUN Creatinine Est GFR (CKD-EPI)AfAm Est GFR (CKD-EPI)NonAf POC Glucometer 92 93 Random Glucose Calcium Total Bilirubin AST ALT Alkaline Phosphatase Total Protein Albumin Urine Color Urine Appearance Urine pH Ur Specific [place] Urine Protein Urine Glucose (UA) Urine Ketones Urine Blood Urine Nitrite Urine Bilirubin Urine Urobilinogen Ur Leukocyte Esterase Urine WBC (Auto) Urine RBC (Auto) Urine Casts (Auto) U Epithel Cells (Auto) Urine Bacteria (Auto) POC Urine HCG, Qual RPR Titer LABS NOTED. Assessment: 08/26/19 17:25 WITHDRAWAL SYMPTOMS. Plan: CONTINUE DETOX. LIDODERM PATCH FOR LOWER BACK PAIN.
[2019-08-26] MEDS: QUEtiapine FUMARATE 50 MG TABLET PO PRN (22:01)
[2019-08-26] MEDS: THIAMINE HCL 100 MG TABLET (FP) PO SCH (22:01)
[2019-08-26] MEDS: MONTELUKAST NA 10 MG TABLET PO SCH (22:01)
[2019-08-26] MEDS: hydrOXYzine PAMOATE 25 MG CAPSULE (FP) PO PRN (22:03)
[2019-08-26] MEDS: LIDOCAINE PATCH REMOVAL MC SCH (22:23)
[2019-08-26] MEDS: chlordiazePOXIDE HCL 10 MG CAPSULE PO PRN (23:02)
[2019-08-27] MEDS ORDERED: chlordiazePOXIDE HCL 10 MG CAPSULE PO PRN
[2019-08-27] MEDS ORDERED: METHADONE HCL 10 MG TABLET ONE (04:45)
[2019-08-27] MEDS ORDERED: METHADONE HCL 40 MG DISPERSABLE TABLET ONE (04:46)
[2019-08-27] MEDS: METHADONE 80 MG, METHADONE 20 MG PO SCH (05:33)
[2019-08-27] MEDS: chlordiazePOXIDE HCL 10 MG CAPSULE PO SCH ×3 (05:33→22:04)
[2019-08-27] MEDS: metFORMIN HCL 500 MG TABLET (FP) PO SCH ×2 (06:23→17:08)
[2019-08-27] MEDS: PRENATAL VITAMINS W/ FOLIC ACID TABLET (FP) PO SCH (10:08)
[2019-08-27] MEDS: LIDOCAINE 5% TOPICAL PATCH TP SCH (10:09)
[2019-08-27] MEDS: hydrOXYzine PAMOATE 25 MG CAPSULE (FP) PO PRN (10:11)
[2019-08-27] MEDS ORDERED: NICOTINE POLACRILEX 2 MG GUM BUC PRN (14:00)
--- NOTE | 2019-08-27 14:04 | PN ---
S CIWA - CIWA Score Nausea/Vomitin-No Nausea/No Vomiting Muscle Tremors: 3 Anxiety: 3 Agitation: 2 Paroxysmal Sweats: No Perspiration Orientation: 0-Oriented Tacttile Disturbances: 0-None Auditory Disturbances: 0-None Visual Disturbances: 0-None Headache: 0-None Present CIWA-Ar Total Score: 8 BHS Progress Note (SOAP) Subjective: Anxious, Tremors. Objective: PATIENT A & O X 3, OBSERVED AMBULATING ON DETOX UNIT UNASSISTED. IN NO ACUTE DISTRESS. 08/27/19 14:01 Vital Signs Temperature 98.6 F 08/27/19 13:37 Pulse Rate 62 08/27/19 13:37 Respiratory Rate 18 08/27/19 13:37 Blood Pressure 96/59 L 08/27/19 13:37 O2 Sat by Pulse Oximetry (%) 96 08/26/19 23:36 Laboratory Tests 08/24/19 08/24/19 08/24/19 13:02 14:05 14:05 WBC 4.3 RBC 4.79 Hgb 12.3 Hct 39.0 MCV 81.3 MCH 25.6 L MCHC 31.5 L RDW 14.9 Plt Count 138 D MPV 10.3 Sodium 139 Potassium 3.8 Chloride 104 Carbon Dioxide 28 Anion Gap 7 L BUN 13.1 Creatinine 0.7 Est GFR (CKD-EPI)AfAm 114.65 Est GFR (CKD-EPI)NonAf 98.92 POC Glucometer Random Glucose 119 H Calcium 8.7 Total Bilirubin 0.2 AST 21 ALT 20 Alkaline Phosphatase 78 Total Protein 7.4 Albumin 3.8 Urine Color Urine Appearance Urine pH Ur Specific [place] Urine Protein Urine Glucose (UA) Urine Ketones Urine Blood Urine Nitrite Urine Bilirubin Urine Urobilinogen Ur Leukocyte Esterase Urine WBC (Auto) Urine RBC (Auto) Urine Casts (Auto) U Epithel Cells (Auto) Urine Bacteria (Auto) POC Urine HCG, Qual Negative RPR Titer 08/24/19 08/24/19 08/24/19 14:05 14:10 16:12 WBC RBC Hgb Hct MCV MCH MCHC RDW Plt Count MPV Sodium Potassium Chloride Carbon Dioxide Anion Gap BUN Creatinine Est GFR (CKD-EPI)AfAm Est GFR (CKD-EPI)NonAf POC Glucometer 130 113 Random Glucose Calcium Total Bilirubin AST ALT Alkaline Phosphatase Total Protein Albumin Urine Color Urine Appearance Urine pH Ur Specific [place] Urine Protein Urine Glucose (UA) Urine Ketones Urine Blood Urine Nitrite Urine Bilirubin Urine Urobilinogen Ur Leukocyte Esterase Urine WBC (Auto) Urine RBC (Auto) Urine Casts (Auto) U Epithel Cells (Auto) Urine Bacteria (Auto) POC Urine HCG, Qual RPR Titer Nonreactive 08/25/19 08/25/19 08/25/19 05:45 11:25 16:22 WBC RBC Hgb Hct MCV MCH MCHC RDW Plt Count MPV Sodium Potassium Chloride Carbon Dioxide Anion Gap BUN Creatinine Est GFR (CKD-EPI)AfAm Est GFR (CKD-EPI)NonAf POC Glucometer 89 108 Random Glucose Calcium Total Bilirubin AST ALT Alkaline Phosphatase Total Protein Albumin Urine Color Yellow Urine Appearance Cloudy Urine pH 7.5 D Ur Specific [place] 1.016 Urine Protein Negative Urine Glucose (UA) Negative Urine Ketones Negative Urine Blood Negative Urine Nitrite Negative Urine Bilirubin Negative Urine Urobilinogen 0.2 Ur Leukocyte Esterase Trace Urine WBC (Auto) 4 Urine RBC (Auto) 1 Urine Casts (Auto) 3 U Epithel Cells (Auto) 4.0 Urine Bacteria (Auto) 43.8 POC Urine HCG, Qual RPR Titer 08/26/19 08/26/19 08/27/19 05:27 16:29 05:36 WBC RBC Hgb Hct MCV MCH MCHC RDW Plt Count MPV Sodium Potassium Chloride Carbon Dioxide Anion Gap BUN Creatinine Est GFR (CKD-EPI)AfAm Est GFR (CKD-EPI)NonAf POC Glucometer 92 93 98 Random Glucose Calcium Total Bilirubin AST ALT Alkaline Phosphatase Total Protein Albumin Urine Color Urine Appearance Urine pH Ur Specific [place] Urine Protein Urine Glucose (UA) Urine Ketones Urine Blood Urine Nitrite Urine Bilirubin Urine Urobilinogen Ur Leukocyte Esterase Urine WBC (Auto) Urine RBC (Auto) Urine Casts (Auto) U Epithel Cells (Auto) Urine Bacteria (Auto) POC Urine HCG, Qual RPR Titer LABS NOTED. Assessment: 08/27/19 14:02 WITHDRAWAL SYMPTOMS. Plan: CONTINUE DETOX. INCREASE DAILY PO WATER INTAKE. PATIENT SCHEDULED FOR D/C FROM DETOX UNIT TOMORROW.
[2019-08-27] MEDS: THIAMINE HCL 100 MG TABLET (FP) PO SCH (22:05)
[2019-08-27] MEDS: LIDOCAINE PATCH REMOVAL MC SCH (22:05)
[2019-08-27] MEDS: MONTELUKAST NA 10 MG TABLET PO SCH (22:05)
[2019-08-27] MEDS: QUEtiapine FUMARATE 50 MG TABLET PO PRN (22:05)
[2019-08-27] MEDS: MELATONIN 5 MG TABLETS PO PRN (22:06)
[2019-08-28] MEDS ORDERED: METHADONE HCL 10 MG TABLET ONE (04:33)
[2019-08-28] MEDS ORDERED: METHADONE HCL 40 MG DISPERSABLE TABLET ONE (04:33)
[2019-08-28] MEDS ORDERED: chlordiazePOXIDE HCL 10 MG CAPSULE PO ONE (05:00)
[2019-08-28] MEDS: METHADONE 80 MG, METHADONE 20 MG PO SCH (05:22)
[2019-08-28 06:24] VITALS: BP 102/63; PULSE 79; TEMP 99.5
[2019-08-28] MEDS: metFORMIN HCL 500 MG TABLET (FP) PO SCH (06:43)
--- NOTE | 2019-08-28 13:51 | DS ---
[facility] Detox Discharge Summary Admission Date: 08/24/19 Discharge Date: 08/28/19 - History Present History: Alcohol Dependence Additional Comments: 53 years old female admitted on 08/24/19 for alcohol withdrawal sx management discharged around 7 am today I have not assessed nor evaluated the patient before discharged - Physical Exam Results Vital Signs: Vital Signs Temperature 99.5 F 08/28/19 06:24 Pulse Rate 79 08/28/19 06:24 Respiratory Rate 16 08/28/19 06:24 Blood Pressure 102/63 08/28/19 06:24 O2 Sat by Pulse Oximetry (%) 96 08/26/19 23:36 Pertinent Admission Physical Exam Findings: alcohol withdrawal sx Laboratory Last Values WBC 4.3 K/mm3 (4.0-10.0) 08/24/19 14:05 RBC 4.79 M/mm3 (3.60-5.2) 08/24/19 14:05 Hgb 12.3 GM/dL (10.7-15.3) 08/24/19 14:05 Hct 39.0 % (32.4-45.2) 08/24/19 14:05 MCV 81.3 fl (80-96) 08/24/19 14:05 MCH 25.6 pg (25.7-33.7) L 08/24/19 14:05 MCHC 31.5 g/dl (32.0-36.0) L 08/24/19 14:05 RDW 14.9 % (11.6-15.6) 08/24/19 14:05 Plt Count 138 K/MM3 (134-434) D 08/24/19 14:05 MPV 10.3 fl (7.5-11.1) 08/24/19 14:05 Sodium 139 mmol/L (136-145) 08/24/19 14:05 Potassium 3.8 mmol/L (3.5-5.1) 08/24/19 14:05 Chloride 104 mmol/L (98-107) 08/24/19 14:05 Carbon Dioxide 28 mmol/L (21-32) 08/24/19 14:05 Anion Gap 7 MMOL/L (8-16) L 08/24/19 14:05 BUN 13.1 mg/dL (7-18) 08/24/19 14:05 Creatinine 0.7 mg/dL (0.55-1.3) 08/24/19 14:05 Est GFR (CKD-EPI)AfAm 114.65 08/24/19 14:05 Est GFR (CKD-EPI)NonAf 98.92 08/24/19 14:05 POC Glucometer 79 UNITS (80-120) 08/28/19 05:25 Random Glucose 119 mg/dL (74-106) H 08/24/19 14:05 Calcium 8.7 mg/dL (8.5-10.1) 08/24/19 14:05 Total Bilirubin 0.2 mg/dL (0.2-1) 08/24/19 14:05 AST 21 U/L (15-37) 08/24/19 14:05 ALT 20 U/L (13-61) 08/24/19 14:05 Alkaline Phosphatase 78 U/L (45-117) 08/24/19 14:05 Total Protein 7.4 g/dl (6.4-8.2) 08/24/19 14:05 Albumin 3.8 g/dl (3.4-5.0) 08/24/19 14:05 Urine Color Yellow 08/25/19 11:25 Urine Appearance Cloudy 08/25/19 11:25 Urine pH 7.5 (5.0-8.0) D 08/25/19 11:25 Ur Specific [place] 1.016 (1.010-1.035) 08/25/19 11:25 Urine Protein Negative (NEGATIVE) 08/25/19 11:25 Urine Glucose (UA) Negative (NEGATIVE) 08/25/19 11:25 Urine Ketones Negative (NEGATIVE) 08/25/19 11:25 Urine Blood Negative (NEGATIVE) 08/25/19 11:25 Urine Nitrite Negative (NEGATIVE) 08/25/19 11:25 Urine Bilirubin Negative (NEGATIVE) 08/25/19 11:25 Urine Urobilinogen 0.2 mg/dL (0.2-1.0) 08/25/19 11:25 Ur Leukocyte Esterase Trace (NEGATIVE) 08/25/19 11:25 Urine WBC (Auto) 4 /hpf (0-5) 08/25/19 11:25 Urine RBC (Auto) 1 /hpf (0-4) 08/25/19 11:25 Urine Casts (Auto) 3 /lpf (0-8) 08/25/19 11:25 U Epithel Cells (Auto) 4.0 /HPF (0-5/HPF) 08/25/19 11:25 Urine Bacteria (Auto) 43.8 /hpf (NEGATIVE) 08/25/19 11:25 POC Urine HCG, Qual Negative 08/24/19 13:02 RPR Titer Nonreactive (NONREACTIVE) 08/24/19 14:05 lab noted - Treatment Hospital Course: Detox Protocol Followed, Detoxed Safely, Responded well, Discharged Condition Good (nursing report), Rehab Referral Accepted Patient has Accepted [facility] - Medication Discharge Medications: Ambulatory Orders Albuterol Sulfate Inhaler - [Ventolin HFA Inhaler -] 2 inh PO Q4H PRN 12/14/14 Montelukast Na [Singulair -] 10 mg PO HS 12/14/14 metFORMIN HCL [Glucophage -] 500 mg PO BID 12/14/14 Quetiapine Fumarate [Seroquel] 100 tab PO HS #30 tablet 07/23/17 Budesonide/Formeterol Fumarate [SYMBICORT 160/4.5mcg -] 1 inh PO BID PRN Methadone [Dolophine -] 100 mg PO DAILY 08/24/19 Thiamine Mononitrate [Vitamin B-1] 100 mg PO DAILY 08/24/19 - Diagnosis (1) Substance induced mood disorder Status: Suspected (2) Asthma Status: Chronic Qualifiers: Asthma severity: mild Asthma persistence: intermittent Asthma complication type: uncomplicated Qualified Code(s): J45.20 - Mild intermittent asthma, uncomplicated (3) Diabetes mellitus type II, non insulin dependent Status: Chronic (4) HCV antibody positive Status: Chronic (5) HIV (human immunodeficiency virus infection) Status: Chronic Qualifiers: HIV symptom status: asymptomatic Qualified Code(s): Z21 - Asymptomatic human immunodeficiency virus [HIV] infection status (6) Methadone maintenance therapy patient Status: Chronic (7) Nicotine dependence Status: Acute Qualifiers: Nicotine product type: cigarettes Substance use status: in withdrawal Qualified Code(s): F17.213 - Nicotine dependence, cigarettes, with withdrawal - AMA Did Patient Leave Against Medical Advice: No
== END 2019-08-28 06:48 | disposition home or self-care (01) | DRG 773 ==
LOC: YASAS 11:37 → Y3N 14:08
PROVIDERS: ADMIT Surgery; ATTEND Surgery
PROC: HZ2ZZZZ Detoxification Services for Substance Abuse Treatment (ICD-10-PCS; principal; 2019-08-24)
DX: F10.230 Alcohol dependence with withdrawal, uncomplicated (principal); F11.20 Opioid dependence, uncomplicated; F14.20 Cocaine dependence, uncomplicated; F17.210 Nicotine dependence, cigarettes, uncomplicated; F19.24 Other psychoactive substance dependence with psychoactive substance-induced mood disorder; F19.282 Other psychoactive substance dependence with psychoactive substance-induced sleep disorder; Z21 Asymptomatic human immunodeficiency virus [HIV] infection status; B18.2 Chronic viral hepatitis C; E11.9 Type 2 diabetes mellitus without complications; J44.9 Chronic obstructive pulmonary disease, unspecified; Z79.84 Long term (current) use of oral hypoglycemic drugs
CPT/HCPCS: 36415; 80053; 81003; 81025; 82962; 85027; 86593; 94640

== ENCOUNTER 2019-12-13 14:26 | Inpatient (IN) | payer OTHER ==
[2019-12-13 17:38] VITALS: BMI 21.1
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
[2019-12-13] MEDS ORDERED: IBUPROFEN 400 MG TABLET (FP) PO PRN (21:35)
[2019-12-13] MEDS ORDERED: ACETAMINOPHEN 325 MG TABLET (FP) PO PRN ×2 (21:35)
[2019-12-13] MEDS ORDERED: MAGNESIUM CITRATE 300 ML BOTTLE PO PRN (21:35)
[2019-12-13] MEDS ORDERED: hydrOXYzine PAMOATE 25 MG CAPSULE (FP) PO PRN (21:35)
[2019-12-13] MEDS ORDERED: MAGNESIUM HYDROX 2400MG/30ML ORAL SUSPENSION 30 ML CUP PO PRN (21:35)
[2019-12-13] MEDS ORDERED: MAG HYDROX/AL HYDROX/SIMETH 30 ML UNIT-DOSE CUP PO PRN (21:35)
[2019-12-13] MEDS ORDERED: NICOTINE POLACRILEX 2 MG GUM BUC PRN (21:35)
[2019-12-13] MEDS ORDERED: ONDANSETRON *ODT* 4 MG TABLET SL PRN (21:35)
[2019-12-13] MEDS ORDERED: METHOCARBAMOL 500 MG TABLET PO PRN (21:35)
[2019-12-13] MEDS ORDERED: BISMUTH SUBSALICYLATE 524 MG/30 ML UD PO PRN (21:35)
[2019-12-13] MEDS ORDERED: MENTHOL/PHENOL 1 EACH UD MM PRN (21:35)
[2019-12-13] MEDS ORDERED: chlordiazePOXIDE HCL 10 MG CAPSULE PO PRN (21:39)
[2019-12-13] MEDS: THIAMINE HCL 100 MG TABLET (FP) PO SCH (22:52)
[2019-12-13] MEDS: chlordiazePOXIDE HCL 25 MG CAPSULE PO SCH (22:52)
[2019-12-13] MEDS: MONTELUKAST NA 10 MG TABLET PO SCH (22:52)
[2019-12-13] MEDS: MELATONIN 5 MG TABLETS PO PRN (22:52)
[2019-12-14] MEDS: chlordiazePOXIDE HCL 25 MG CAPSULE PO SCH ×3 (07:18→22:21)
[2019-12-14] MEDS: metFORMIN HCL 500 MG TABLET (FP) PO SCH ×2 (07:18→17:29)
[2019-12-14] MEDS: ALBUTEROL SO4 HFA INHALER IH PRN (07:19)
[2019-12-14 09:38] LABS: HEMATOCRIT 40.4 % (32.4-45.2); HEMOGLOBIN 12.9 GM/dL (10.7-15.3); MCH 25.2 pg (25.7-33.7); MEAN PLT VOLUME 9.4 fl (7.5-11.1); PLATELET COUNT 188 K/MM3 (134-434); RBC 5.11 M/mm3 (3.60-5.2); RDW 14.5 % (11.6-15.6); WHITE BLOOD COUNT 5.7 K/mm3 (4.0-10.0)
[2019-12-14 09:56] LABS: ALBUMIN 3.2 g/dl (3.4-5.0); BILIRUBIN,TOTAL 0.1 mg/dL (0.2-1); BLOOD UREA NITROGEN 12.5 mg/dL (7-18); CALCIUM 8.4 mg/dL (8.5-10.1); CREATININE 0.8 mg/dL (0.55-1.3); POTASSIUM 3.9 mmol/L (3.5-5.1)
--- NOTE | 2019-12-14 10:07 | EKG ---
Test Reason : Blood Pressure : / mmHG Vent. Rate : 094 BPM Atrial Rate : 094 BPM P-R Int : 158 ms QRS Dur : 072 ms QT Int : 358 ms P-R-T Axes : 061 051 046 degrees QTc Int : 447 ms SINUS RHYTHM WITH OCCASIONAL PREMATURE VENTRICULAR COMPLEXES NONSPECIFIC ST AND T WAVE ABNORMALITY ABNORMAL ECG WHEN COMPARED WITH ECG OF 22-JUL-2017 14:16, PREMATURE VENTRICULAR COMPLEXES ARE NOW PRESENT NONSPECIFIC T WAVE ABNORMALITY, IMPROVED IN INFERIOR LEADS Confirmed by JIM THOMPSON MD ([id number]) on 12/14/2019 10:06:38 AM Referred By: Confirmed By:JIM THOMPSON MD
[2019-12-14] MEDS: BUDESONIDE/FORMETEROL FUMARATE 160/4.5 mcg INHALER IH SCH ×2 (10:23→22:24)
[2019-12-14] MEDS: BICTEGRAV/EMTRICIT/TENOFOV (BIKTARVY) 50-200-25 MG TABLET PO SCH (10:23)
[2019-12-14] MEDS: PRENATAL VITAMINS W/ FOLIC ACID TABLET (FP) PO SCH (10:23)
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
[2019-12-14] MEDS ORDERED: METHADONE HCL 10 MG TABLET PO ONE (10:42)
--- NOTE | 2019-12-14 10:50 | PN ---
S CIWA - CIWA Score Nausea/Vomitin-No Nausea/No Vomiting Muscle Tremors: 3 Anxiety: 2 Agitation: 3 Paroxysmal Sweats: 2 Orientation: 0-Oriented Tacttile Disturbances: 0-None Auditory Disturbances: 0-None Visual Disturbances: 0-None Headache: 0-None Present CIWA-Ar Total Score: 10 BHS Progress Note (SOAP) Subjective: sweats body aches interrupted sleep agitation irritable Objective: 12/14/19 11:02 Vital Signs Temperature 99.5 F 12/14/19 07:00 Pulse Rate 100 H 12/14/19 07:00 Respiratory Rate 16 12/14/19 07:00 Blood Pressure 110/64 12/14/19 07:00 O2 Sat by Pulse Oximetry (%) Laboratory Tests 12/14/19 12/14/19 12/14/19 07:17 08:10 08:10 WBC 5.7 RBC 5.11 Hgb 12.9 Hct 40.4 MCV 79.0 L MCH 25.2 L MCHC 32.0 RDW 14.5 Plt Count 188 D MPV 9.4 Sodium 138 Potassium 3.9 Chloride 102 Carbon Dioxide 31 Anion Gap 5 L BUN 12.5 Creatinine 0.8 Est GFR (CKD-EPI)AfAm 96.87 Est GFR (CKD-EPI)NonAf 83.58 POC Glucometer 107 Random Glucose 86 Calcium 8.4 L Total Bilirubin 0.1 L AST 26 ALT 22 Alkaline Phosphatase 85 Total Protein 7.0 Albumin 3.2 L aaox3 ambulating no acute distress Assessment: 12/14/19 11:02 withdrawals Plan: continue detox increase fluids
[2019-12-14] MEDS ORDERED: METHADONE 80 MG, METHADONE 20 MG PO ONE (11:40)
[2019-12-14] MEDS ORDERED: METHADONE HCL 10 MG TABLET ONE (11:54)
[2019-12-14] MEDS ORDERED: METHADONE HCL 40 MG DISPERSABLE TABLET ONE (11:55)
[2019-12-14] MEDS ORDERED: PNEUMOC 13-VAL CONJ-DIP CRM/PF 0.5 ML DISP.SYRIN IM ONE (12:00)
--- NOTE | 2019-12-14 13:10 | EKG ---
Test Reason : Blood Pressure : / mmHG Vent. Rate : 100 BPM Atrial Rate : 100 BPM P-R Int : 140 ms QRS Dur : 078 ms QT Int : 344 ms P-R-T Axes : 074 053 057 degrees QTc Int : 443 ms NORMAL SINUS RHYTHM NONSPECIFIC T WAVE ABNORMALITY ABNORMAL ECG WHEN COMPARED WITH ECG OF 13-DEC-2019 23:06, PREMATURE VENTRICULAR COMPLEXES ARE NO LONGER PRESENT Confirmed by JIM THOMPSON MD ([id number]) on 12/14/2019 1:10:14 PM Referred By: Confirmed By:JIM THOMPSON MD
[2019-12-14] MEDS: guaiFENesin 200 MG/10 ML 10 ML UNIT-DOSE CUPS PO PRN (21:20)
[2019-12-14] MEDS ORDERED: QUEtiapine FUMARATE 50 MG TABLET PO SCH (22:00)
[2019-12-14] MEDS: MONTELUKAST NA 10 MG TABLET PO SCH (22:21)
[2019-12-14] MEDS: QUEtiapine FUMARATE 50 MG TABLET PO SCH (22:21)
[2019-12-14] MEDS: THIAMINE HCL 100 MG TABLET (FP) PO SCH (22:21)
[2019-12-14] MEDS: P-EPHED 60MG/TRIPROLIDI 2.5MG TABLET PO PRN (22:24)
[2019-12-15] MEDS ORDERED: METHADONE HCL 40 MG DISPERSABLE TABLET ONE (05:02)
[2019-12-15] MEDS ORDERED: METHADONE HCL 10 MG TABLET ONE (05:02)
[2019-12-15] MEDS ORDERED: METHADONE HCL 40 MG DISPERSABLE TABLET PO SCH (06:00)
[2019-12-15] MEDS: METHADONE 80 MG, METHADONE 20 MG PO SCH (06:50)
[2019-12-15] MEDS: chlordiazePOXIDE 5 MG CAPSULE PO SCH ×3 (06:50→22:22)
[2019-12-15] MEDS: metFORMIN HCL 500 MG TABLET (FP) PO SCH ×2 (06:57→17:51)
[2019-12-15] MEDS: BUDESONIDE/FORMETEROL FUMARATE 160/4.5 mcg INHALER IH SCH ×2 (10:07→22:23)
[2019-12-15] MEDS: BICTEGRAV/EMTRICIT/TENOFOV (BIKTARVY) 50-200-25 MG TABLET PO SCH (10:07)
[2019-12-15] MEDS: PRENATAL VITAMINS W/ FOLIC ACID TABLET (FP) PO SCH (10:07)
--- NOTE | 2019-12-15 11:41 | PN ---
S CIWA - CIWA Score Nausea/Vomitin-No Nausea/No Vomiting Muscle Tremors: 3 Anxiety: 1-Mildly Anxious Agitation: 2 Paroxysmal Sweats: 1-Minimal Palms Moist Orientation: 0-Oriented Tacttile Disturbances: 0-None Auditory Disturbances: 0-None Visual Disturbances: 0-None Headache: 0-None Present CIWA-Ar Total Score: 7 BHS Progress Note (SOAP) Subjective: achy hands sweats low back pain interrupted sleep Objective: 12/15/19 11:38 Vital Signs Temperature 98.1 F 12/15/19 10:00 Pulse Rate 98 H 12/15/19 10:00 Respiratory Rate 16 12/15/19 10:00 Blood Pressure 83/58 12/15/19 10:00 O2 Sat by Pulse Oximetry (%) Laboratory Tests 12/14/19 12/14/19 12/14/19 07:17 08:10 08:10 WBC 5.7 RBC 5.11 Hgb 12.9 Hct 40.4 MCV 79.0 L MCH 25.2 L MCHC 32.0 RDW 14.5 Plt Count 188 D MPV 9.4 Sodium 138 Potassium 3.9 Chloride 102 Carbon Dioxide 31 Anion Gap 5 L BUN 12.5 Creatinine 0.8 Est GFR (CKD-EPI)AfAm 96.87 Est GFR (CKD-EPI)NonAf 83.58 POC Glucometer 107 Random Glucose 86 Calcium 8.4 L Total Bilirubin 0.1 L AST 26 ALT 22 Alkaline Phosphatase 85 Total Protein 7.0 Albumin 3.2 L RPR Titer 12/14/19 12/14/19 12/15/19 08:10 16:33 06:48 WBC RBC Hgb Hct MCV MCH MCHC RDW Plt Count MPV Sodium Potassium Chloride Carbon Dioxide Anion Gap BUN Creatinine Est GFR (CKD-EPI)AfAm Est GFR (CKD-EPI)NonAf POC Glucometer 141 94 Random Glucose Calcium Total Bilirubin AST ALT Alkaline Phosphatase Total Protein Albumin RPR Titer Nonreactive aaox3 ambulating no acute distress 12/15/19 13:13 Assessment: 12/15/19 11:40 withdrawals Plan: analgesic balm lidocaine patch motrin prn continue detox increase fluids
[2019-12-15] MEDS: LIDOCAINE 5% TOPICAL PATCH TP SCH (13:05)
[2019-12-15] MEDS: METHYL SALICYLATE/MENTHOL OINT 30 GM TUBE TP SCH ×2 (13:05→22:22)
[2019-12-15] MEDS: P-EPHED 60MG/TRIPROLIDI 2.5MG TABLET PO PRN (13:06)
[2019-12-15] MEDS ORDERED: LIDOCAINE PATCH REMOVAL MC SCH (22:00)
[2019-12-15] MEDS: QUEtiapine FUMARATE 50 MG TABLET PO SCH (22:21)
[2019-12-15] MEDS: MONTELUKAST NA 10 MG TABLET PO SCH (22:21)
[2019-12-15] MEDS: THIAMINE HCL 100 MG TABLET (FP) PO SCH (22:22)
[2019-12-16] MEDS ORDERED: chlordiazePOXIDE HCL 10 MG CAPSULE PO PRN
[2019-12-16] MEDS: guaiFENesin 200 MG/10 ML 10 ML UNIT-DOSE CUPS PO PRN ×2 (00:42→12:27)
[2019-12-16] MEDS: MELATONIN 5 MG TABLETS PO PRN (00:44)
[2019-12-16] MEDS: ALBUTEROL SO4 HFA INHALER IH PRN (03:42)
[2019-12-16] MEDS ORDERED: METHADONE HCL 10 MG TABLET ONE (04:14)
[2019-12-16] MEDS ORDERED: METHADONE HCL 40 MG DISPERSABLE TABLET ONE (04:15)
[2019-12-16] MEDS ORDERED: chlordiazePOXIDE HCL 10 MG CAPSULE PO SCH (05:00)
[2019-12-16] MEDS: metFORMIN HCL 500 MG TABLET (FP) PO SCH (06:01)
[2019-12-16] MEDS: METHADONE 80 MG, METHADONE 20 MG PO SCH (06:01)
[2019-12-16] MEDS ORDERED: ALBUTEROL SO4 0.083% IH SOL 2.5 MG/3 ML VIAL.NEB. NEB PRN (08:00)
[2019-12-16 09:41] VITALS: BP 91/51; PULSE 111; TEMP 97.2
[2019-12-16] MEDS: BICTEGRAV/EMTRICIT/TENOFOV (BIKTARVY) 50-200-25 MG TABLET PO SCH (10:12)
[2019-12-16] MEDS: PRENATAL VITAMINS W/ FOLIC ACID TABLET (FP) PO SCH (10:13)
[2019-12-16] MEDS: METHYL SALICYLATE/MENTHOL OINT 30 GM TUBE TP SCH (10:13)
[2019-12-16] MEDS: LIDOCAINE 5% TOPICAL PATCH TP SCH (10:14)
[2019-12-16] MEDS: BUDESONIDE/FORMETEROL FUMARATE 160/4.5 mcg INHALER IH SCH (10:49)
--- NOTE | 2019-12-16 11:26 | PN ---
S CIWA - CIWA Score Nausea/Vomitin-No Nausea/No Vomiting Muscle Tremors: 1-None Visible, but [place] Anxiety: 0-No Anxiety, at Ease Agitation: 1-Slight > Activity Paroxysmal Sweats: No Perspiration Orientation: 0-Oriented Tacttile Disturbances: 0-None Auditory Disturbances: 0-None Visual Disturbances: 0-None Headache: 0-None Present CIWA-Ar Total Score: 2 BHS Progress Note (SOAP) Subjective: feeling better cough d/t asthma Objective: 12/16/19 11:25 Vital Signs Temperature 97.2 F L 12/16/19 09:40 Pulse Rate 111 H 12/16/19 09:40 Respiratory Rate 19 12/16/19 09:40 Blood Pressure 91/51 L 12/16/19 09:40 O2 Sat by Pulse Oximetry (%) aaox3 ambulating no acute distress Assessment: 12/16/19 11:26 mild to no withdrawals noted Plan: d/c today
--- NOTE | 2019-12-16 11:31 | DS ---
[facility] Detox Discharge Summary Admission Date: 12/13/19 Discharge Date: 12/16/19 - History Present History: Alcohol Dependence, Cocaine Dependence, Opioid Dependence, Sedative Dependence, MMTP - Physical Exam Results Vital Signs: Vital Signs Temperature 97.2 F L 12/16/19 09:40 Pulse Rate 111 H 12/16/19 09:40 Respiratory Rate 12/16/19 09:40 Blood Pressure 91/51 L 12/16/19 09:40 O2 Sat by Pulse Oximetry (%) Pertinent Admission Physical Exam Findings: Vital Signs Temperature 97.2 F L 12/16/19 09:40 Pulse Rate 111 H 12/16/19 09:40 Respiratory Rate 12/16/19 09:40 Blood Pressure 91/51 L 12/16/19 09:40 O2 Sat by Pulse Oximetry (%) Laboratory Tests 12/14/19 12/14/19 12/14/19 07:17 08:10 08:10 WBC 5.7 RBC 5.11 Hgb 12.9 Hct 40.4 MCV 79.0 L MCH 25.2 L MCHC 32.0 RDW 14.5 Plt Count 188 D MPV 9.4 Sodium 138 Potassium 3.9 Chloride 102 Carbon Dioxide 31 Anion Gap 5 L BUN 12.5 Creatinine 0.8 Est GFR (CKD-EPI)AfAm 96.87 Est GFR (CKD-EPI)NonAf 83.58 POC Glucometer 107 Random Glucose 86 Calcium 8.4 L Total Bilirubin 0.1 L AST 26 ALT 22 Alkaline Phosphatase 85 Total Protein 7.0 Albumin 3.2 L RPR Titer 12/14/19 12/14/19 12/15/19 08:10 16:33 06:48 WBC RBC Hgb Hct MCV MCH MCHC RDW Plt Count MPV Sodium Potassium Chloride Carbon Dioxide Anion Gap BUN Creatinine Est GFR (CKD-EPI)AfAm Est GFR (CKD-EPI)NonAf POC Glucometer 141 94 Random Glucose Calcium Total Bilirubin AST ALT Alkaline Phosphatase Total Protein Albumin RPR Titer Nonreactive 12/15/19 12/16/19 16:43 05:59 WBC RBC Hgb Hct MCV MCH MCHC RDW Plt Count MPV Sodium Potassium Chloride Carbon Dioxide Anion Gap BUN Creatinine Est GFR (CKD-EPI)AfAm Est GFR (CKD-EPI)NonAf POC Glucometer 154 105 Random Glucose Calcium Total Bilirubin AST ALT Alkaline Phosphatase Total Protein Albumin RPR Titer aaox3 ambulating no acute distress - Treatment Hospital Course: Detox Protocol Followed, Detoxed Safely, Responded well, Discharged Condition Good, Rehab Referral Accepted Patient has Accepted a Rehab Referral to: referred to inpatient rehab - Medication Discharge Medications: Ambulatory Orders Albuterol Sulfate Inhaler - [Ventolin HFA Inhaler -] 2 inh PO Q4H PRN 12/14/14 Montelukast Na [Singulair -] 10 mg PO HS 12/14/14 metFORMIN HCL [Glucophage -] 500 mg PO BID 12/14/14 Quetiapine Fumarate [Seroquel] 100 tab PO HS #30 tablet 07/23/17 Budesonide/Formeterol Fumarate [SYMBICORT 160/4.5mcg -] 1 inh PO BID PRN Methadone [Dolophine -] 100 mg PO DAILY 08/24/19 Thiamine Mononitrate [Vitamin B-1] 100 mg PO DAILY 08/24/19 Bictegrav/Emtricit/Tenofov Ala [Biktarvy 50-200-25 mg Tablet] 1 each PO DAILY Oxycodone HCl/Acetaminophen [Percocet 10-325 mg Tablet] 1 tablet PO BID PRN - Diagnosis (1) Alcohol dependence with withdrawal, uncomplicated Current Visit: Yes Status: Chronic (2) Substance induced mood disorder Current Visit: Yes Status: Acute (3) Substance-induced sleep disorder Current Visit: Yes Status: Acute (4) Anemia Current Visit: Yes Status: Chronic Qualifiers: Anemia type: unspecified type Qualified Code(s): D64.9 - Anemia, unspecified (5) COPD (chronic obstructive pulmonary disease) Current Visit: Yes Status: Chronic Qualifiers: COPD type: emphysema Emphysema type: unspecified Qualified Code(s): J43.9 - Emphysema, unspecified (6) Mood disorder Current Visit: Yes Status: Chronic (7) Opioid dependence on agonist therapy Current Visit: Yes Status: Chronic (8) Bipolar II disorder Current Visit: Yes Status: Ruled-out (9) Cocaine dependence Current Visit: Yes Status: Chronic Qualifiers: Substance use status: uncomplicated Qualified Code(s): F14.20 - Cocaine dependence, uncomplicated (10) Substance-induced sleep disorder Current Visit: No Status: Acute (11) Asthma Current Visit: Yes Status: Chronic Qualifiers: Asthma severity: mild Asthma persistence: intermittent Asthma complication type: uncomplicated Qualified Code(s): J45.20 - Mild intermittent asthma, uncomplicated (12) Cocaine dependence, uncomplicated Current Visit: Yes Status: Chronic (13) Diabetes mellitus type II, non insulin dependent Current Visit: No Status: Chronic (14) HCV antibody positive Current Visit: No Status: Chronic (15) HIV (human immunodeficiency virus infection) Current Visit: Yes Status: Chronic Qualifiers: HIV symptom status: unspecified Qualified Code(s): B20 - Human immunodeficiency virus [HIV] disease (16) Insomnia Current Visit: No Status: Chronic (17) Methadone maintenance therapy patient Current Visit: Yes Status: Chronic (18) Nicotine dependence Current Visit: Yes Status: Chronic Qualifiers: Nicotine product type: cigarettes Substance use status: uncomplicated Qualified Code(s): F17.210 - Nicotine dependence, cigarettes, uncomplicated (19) Sedative, hypnotic or anxiolytic dependence with withdrawal, uncomplicated Current Visit: Yes Status: Chronic (20) Substance induced mood disorder Current Visit: No Status: Suspected (21) Major depressive disorder, recurrent, moderate Current Visit: No Status: Ruled-out - AMA Did Patient Leave Against Medical Advice: No
[2019-12-16] MEDS ORDERED: MEGESTROL ACETATE 400 MG/10 ML UNIT DOSE CUP PO SCH (11:45)
[2019-12-17] MEDS ORDERED: chlordiazePOXIDE HCL 10 MG CAPSULE PO ONE (05:00)
== END 2019-12-16 12:47 | disposition short-term general hospital (02) | DRG 773 ==
LOC: YASAS 14:26 → Y6N 21:59
PROVIDERS: ADMIT Allergy & Immunology; ATTEND Allergy & Immunology
PROC: HZ2ZZZZ Detoxification Services for Substance Abuse Treatment (ICD-10-PCS; principal; 2019-12-13)
DX: F11.20 Opioid dependence, uncomplicated (principal); F14.20 Cocaine dependence, uncomplicated; F31.9 Bipolar disorder, unspecified; Z21 Asymptomatic human immunodeficiency virus [HIV] infection status; F10.230 Alcohol dependence with withdrawal, uncomplicated; J44.1 Chronic obstructive pulmonary disease with (acute) exacerbation; J45.901 Unspecified asthma with (acute) exacerbation; E11.9 Type 2 diabetes mellitus without complications; B18.2 Chronic viral hepatitis C; B34.9 Viral infection, unspecified
CPT/HCPCS: 36415; 80053; 82962; 85027; 86593; 93005; 93010; 94640

== ENCOUNTER 2019-12-16 12:57 | Inpatient (IN) | payer OTHER ==
--- NOTE | 2019-12-16 12:43 | HP ---
[facility] Rehab Assess/Revision - Admission History Admitted to Rehab [facility] - Findings Detox History & Physical reviewed: Yes Concur with findings: Yes Inpatient Rehab Admission - Rehab Decision to Admit Inpatient rehab admission?: Yes - Initial Determination Are CD services needed?: Yes Free of communicable disease: Yes Not in need of hospitalization: Yes - Rehab Admission Criteria Previous failed treatment: Yes Poor recovery environment: Yes Comorbidities: Yes Lacks judgement: Yes Patient is meeting Inpatient Rehab admission criteria:: Yes
[2019-12-16] MEDS ORDERED: MAG HYDROX/AL HYDROX/SIMETH 30 ML UNIT-DOSE CUP PO PRN (13:18)
[2019-12-16] MEDS ORDERED: IBUPROFEN 400 MG TABLET (FP) PO PRN (13:18)
[2019-12-16] MEDS ORDERED: ACETAMINOPHEN 325 MG TABLET (FP) PO PRN (13:18)
[2019-12-16] MEDS ORDERED: LOPERAMIDE HCL 2 MG CAPSULE PO PRN (13:18)
[2019-12-16] MEDS ORDERED: guaiFENesin 200 MG/10 ML 10 ML UNIT-DOSE CUPS PO PRN (13:18)
[2019-12-16] MEDS ORDERED: MENTHOL/PHENOL 1 EACH UD MM PRN (13:18)
[2019-12-16] MEDS ORDERED: P-EPHED 60MG/TRIPROLIDI 2.5MG TABLET PO PRN (13:18)
[2019-12-16] MEDS ORDERED: MAGNESIUM HYDROX 2400MG/30ML ORAL SUSPENSION 30 ML CUP PO PRN (13:18)
[2019-12-16] MEDS ORDERED: ALBUTEROL SO4 HFA INHALER IH PRN (13:18)
[2019-12-16] MEDS ORDERED: MAGNESIUM CITRATE 300 ML BOTTLE PO PRN (13:18)
[2019-12-16] MEDS: ALBUTEROL SO4 2.5/IPRATROPIUM 0.5 INH SOL 3 ML VIAL.NEB. NEB PRN ×2 (13:50→18:20)
--- NOTE | 2019-12-16 14:19 | PN ---
[facility] Progress Note Note: Pt is a 54 y/o female with a hx of KARSON-alcohol/cocaine/heroin, on Methadone 100 mg po daily and last dosed today admitted to rehab from [address] [place] [address]. PMHx:HIV+ (on HAART),Asthma,COPD, Hep C,DM,Anemia. Psych Hx: Bipolar Disorder. Pt reports she has a PCP at [facility](Pt states she will tell provider name of PCP after talking to her to get it because does not remember). Vital Signs - 24 hr 12/16/19 13:07 Temperature 98 F Pulse Rate 106 H Respiratory 19 Rate Blood Pressure 85/54 L Alert o x 3,denies s/h/i. nad oob ambulating with steady gait extremities/skin:no edema;skin intact. A/P new rehab patient s/p detox Maintain safety Meds/Hx reviewed. Increase po fluids
[2019-12-16] MEDS ORDERED: NICOTINE POLACRILEX 2 MG GUM BUC PRN (14:32)
--- NOTE | 2019-12-16 16:01 | PN ---
[facility] Progress Note Note: Nurse Sue Gonsalez called to inform that patient with increased coughing. hx of COPD. Pt is s/p detox today.Pt reports to nurse she uses oxygen at home.Reports he has coughing episodes on occasions. Denies SOB, dizziness, chest pain. Vital Signs - 24 hr 12/16/19 12/16/19 12/16/19 13:07 14:20 16:02 Temperature 98 F Pulse Rate 106 H 85 100 H Respiratory 19 Rate Blood Pressure 85/54 L O2 Sat by Pulse 85 L Oximetry (%) 12/16/19 12/16/19 16:03 16:04 Temperature 98 F Pulse Rate 102 H Respiratory 22 H Rate Blood Pressure 93/58 L O2 Sat by Pulse 85 L Oximetry (%) Initial Pulse ox= 85%(room air during coughing episode) Saw pt now and coughing stopped after oxygen administration pulse ox:90% Alert o x 3 nad cardiac:s1 s2, rr lungs:slight exp. wheeze left upper lung field. Normal breathing, no use of accessory muscles. skin:no cyanosis A/P new rehab pt Hx COPD w/ use of Home oxygen Maintain safety O2 2 L NC Pulse ox Qshift and PRN D/w Resident Dr. Jason Chung who will come to see patient for further assessment today.
[2019-12-16] MEDS ORDERED: metFORMIN HCL 500 MG TABLET (FP) PO SCH (16:30)
--- NOTE | 2019-12-16 18:24 | PN ---
[facility] Progress Note Note: Called by nurse that the patient was hypoxic to 85% on room air while eating. Per the patient and patient records, she has a history of Asthma and COPD currently on 2L home O2. On arrival, the patient is well appearing and states that she feels well. She is saturating 95% on 2L home O2. Patient c/o left sided flank pain which she states that she usually gets when she doesn't have her O2. Patient endorses that the pain is improving after she was placed on oxygen. On physical exam, the patient has mildly decreased air entry bilaterally. No cyanosis noted, no increased work of breathing noted. Cardiac exam is unremarkable. Per nursing staff, the patient also was noted to have a bp of 95/54. Upon chart review, the patient frequently has pressures this low. Patient denies dizziness, lightheadedness. Assessment: Patient's symptoms likely 2/2 not having home O2. Her saturation increased quickly upon O2 supplementation. Patient has PRN nebulizers ordered; will give her one now as she sounds tight. Patient afebrile, so PNA less likely at this time. Will monitor patient closely overnight. If she becomes hypoxic on supplemental O2, develops a fever, or otherwise decompensates, will send the patient to [facility] ER for evaluation.
[2019-12-16 18:45] VITALS: PULSE 101
[2019-12-16] MEDS ORDERED: PT OWN MED DRAWER 7, Y5N ONE ×2 (19:41→22:25)
--- NOTE | 2019-12-16 19:48 | PN ---
Teaching Attending Note Name of Resident: Jason Chung ATTENDING PHYSICIAN STATEMENT I saw and evaluated the patient. I reviewed the resident's note and discussed the case with the resident. I agree with the resident's findings and plan as documented. SUBJECTIVE: pt c/o nasal congestion , cough and SOB PMHx : HIV+ on haart, DM, COPD, asthma, OBJECTIVE: mild distress Vital Signs - 24 hr 12/16/19 12/16/19 12/16/19 13:07 14:20 16:02 Temperature 98 F Pulse Rate 106 H 85 100 H Respiratory 19 Rate Blood Pressure 85/54 L O2 Sat by Pulse 85 L Oximetry (%) 12/16/19 12/16/19 12/16/19 16:03 16:04 17:31 Temperature 98 F Pulse Rate 102 H 96 H Respiratory 22 H Rate Blood Pressure 93/58 L O2 Sat by Pulse 85 L 97 Oximetry (%) 12/16/19 12/16/19 12/16/19 17:33 18:44 18:45 Temperature 98.0 F Pulse Rate 96 H 101 H Respiratory 20 Rate Blood Pressure O2 Sat by Pulse 85 L 85 L Oximetry (%) 12/16/19 19:27 Temperature Pulse Rate 101 H Respiratory Rate Blood Pressure O2 Sat by Pulse 97 Oximetry (%) ASSESSMENT AND PLAN: COPD exacerbation / Asthma exacerbation - pt sent to [facility] for further eval and tx .
--- NOTE | 2019-12-16 19:56 | PN ---
S Progress Note Note: Came up to bedside to re-evaluate the patient. Patient feels well, but continues to saturate in the low 90's with a persistent tachycardia. On further evaluation, she states that she has been feeling body aches as well as a dry cough for the past few days. In light of this new information coupled with the fact that the patient had minimal improvement with supplemental O2 as well as nebulizers, the patient should be evaluated in the ED to rule out flu or PNA. Patient was transferred via EMS to [facility] ED. Signout provided to ED physician by this marine underwriter.
[2019-12-16] MEDS ORDERED: THIAMINE HCL 100 MG TABLET (FP) PO SCH (22:00)
[2019-12-16] MEDS ORDERED: MONTELUKAST NA 10 MG TABLET PO SCH (22:00)
[2019-12-16] MEDS ORDERED: LIDOCAINE PATCH REMOVAL MC SCH (22:00)
[2019-12-16] MEDS ORDERED: BUDESONIDE/FORMETEROL FUMARATE 160/4.5 mcg INHALER IH SCH (22:00)
[2019-12-16] MEDS ORDERED: METHYL SALICYLATE/MENTHOL OINT 30 GM TUBE TP SCH (22:00)
[2019-12-16] MEDS ORDERED: MELATONIN 5 MG TABLETS PO PRN (22:00)
[2019-12-16 23:45] VITALS: BP 93/60; TEMP 97.7
[2019-12-17] MEDS ORDERED: METHADONE HCL 10 MG TABLET PO SCH (06:00)
[2019-12-17] MEDS ORDERED: METHADONE 80 MG, METHADONE 20 MG PO SCH (06:00)
[2019-12-17] MEDS ORDERED: MEGESTROL ACETATE 400 MG/10 ML UNIT DOSE CUP PO SCH (10:00)
[2019-12-17] MEDS ORDERED: PRENATAL VITAMINS W/ FOLIC ACID TABLET (FP) PO SCH (10:00)
[2019-12-17] MEDS ORDERED: BICTEGRAV/EMTRICIT/TENOFOV (BIKTARVY) 50-200-25 MG TABLET PO SCH (10:00)
[2019-12-17] MEDS ORDERED: LIDOCAINE 5% TOPICAL PATCH TP SCH (10:00)
== END 2019-12-17 06:48 | disposition short-term general hospital (02) | DRG 772 ==
LOC: YASAS 12:57 → Y3E 12:58
PROVIDERS: ADMIT Neuromusculoskeletal Medicine & OMM; ATTEND Neuromusculoskeletal Medicine & OMM
PROC: HZ42ZZZ Group Counseling for Substance Abuse Treatment, Cognitive-Behavioral (ICD-10-PCS; principal; 2019-12-16)
DX: F10.20 Alcohol dependence, uncomplicated (principal); F11.20 Opioid dependence, uncomplicated; F14.20 Cocaine dependence, uncomplicated; F31.9 Bipolar disorder, unspecified; Z21 Asymptomatic human immunodeficiency virus [HIV] infection status; B18.2 Chronic viral hepatitis C; E11.9 Type 2 diabetes mellitus without complications; R05 Cough; R06.02 Shortness of breath; J44.9 Chronic obstructive pulmonary disease, unspecified; J45.998 Other asthma; R09.02 Hypoxemia
CPT/HCPCS: 82962; 94640

== ENCOUNTER 2019-12-16 21:06 | Inpatient (IN) | payer OTHER ==
--- NOTE | 2019-12-16 21:17 | PDOC ---
Rapid Medical Evaluation Medical Evaluation: Allergies Allergy/AdvReac Type Severity Reaction Status Date / Time No Known Allergies Allergy Verified 12/13/19 17:20 12/16/19 21:09 I have performed a brief in-person evaluation of this patient. The patient presents with a chief complaint of:Sent [facility] for flu-like sxs x 3 days. No fever. H/o HIV on HAART, DM, COPD (uses 3L oxygen), asthma, bipolar, polysubstance abuse, HCV Pertinent physical exam findings:Sating 93% on 3L w/ T of 100.5 and HR 110 I have ordered the following:flu, cxr, labs The patient will proceed to the ED for further evaluation Discharge Disposition - Diagnosis Viral syndrome - Referrals - Patient Instructions - Post Discharge Activity
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
[2019-12-16 23:44] LABS: BASO % 1.6 % (0-2.0); EOS % 4.1 % (0-4.5); HEMATOCRIT 38.6 % (32.4-45.2); HEMOGLOBIN 12.3 GM/dL (10.7-15.3); LYMPH % 43.3 % (8-40); MCH 25.3 pg (25.7-33.7); MEAN CELL VOLUME 79.1 fl (80-96); MEAN PLT VOLUME 9.5 fl (7.5-11.1); MONO % 10.5 % (3.8-10.2); NEUT % 40.5 % (42.8-82.8); PLATELET COUNT 174 K/MM3 (134-434); RBC 4.87 M/mm3 (3.60-5.2); RDW 14.5 % (11.6-15.6)
[2019-12-16] MEDS ORDERED: ACETAMINOPHEN 1000 MG/100 ML VIAL (NON FORMULARY) IVPB ONE (23:56)
[2019-12-17] MEDS ORDERED: ALBUTEROL SO4 2.5/IPRATROPIUM 0.5 INH SOL 3 ML VIAL.NEB. NEB ONE ×3 (00:07→00:32)
[2019-12-17] MEDS ORDERED: SODIUM CHLORIDE 1,000 ML IV STA (00:09)
[2019-12-17 00:16] LABS: ALBUMIN 3.3 g/dl (3.4-5.0); ALK PHOS 86 U/L (45-117); ANION GAP 4 MMOL/L (8-16); BILIRUBIN,TOTAL 0.2 mg/dL (0.2-1); CALCIUM 8.7 mg/dL (8.5-10.1); CHLORIDE 99 mmol/L (98-107); CO2 34 mmol/L (21-32); CREATININE 0.7 mg/dL (0.55-1.3); GLUCOSE,RANDOM 84 mg/dL (74-106); SGOT/AST 25 U/L (15-37); SGPT/ALT 21 U/L (13-61); SODIUM 137 mmol/L (136-145); TOT PROT 7.3 g/dl (6.4-8.2)
[2019-12-17] MEDS ORDERED: ACETAMINOPHEN INJECTION 100 ML IVPB ONE (00:32)
--- NOTE | 2019-12-17 00:34 | PDOC ---
Documentation entered by Vanna Vo SCRIBE, acting as scribe for Carole Mendez MD. Carole Mendez MD: This documentation has been prepared by the oniibTavo barr Lincy, SCRIBE, under my direction and personally reviewed by me in its entirety. I confirm that the documentation accurately reflects all work, treatment, procedures, and medical decision making performed by me. Attending Attestation - Resident Resident Name: [email or web address] - ED Attending Attestation I have performed the following: I have examined & evaluated the patient, The case was reviewed & discussed with the resident, I agree w/resident's findings & plan, Exceptions are as noted - HPI HPI: 12/17/19 00:42 The patient is a 54-year-old female with a past medical history significant for HIV, COPD, DM, and polysubstance abuse (last use 3 days ago) who presents to the emergency department from [facility] for shortness of breath. The patient reports shes been having a few days of dry cough, left lateral chest pain, generalized body aches, and chills. Denies nausea, vomiting. Denies a history of blood clots. The patient her baseline O2 is around 98% and reports she uses 3L O2 at night. - Physicial Exam PE: 12/17/19 00:31 awake alert lungs with rhonchi at bases, normal effort , heart rrr no mrg abd soft nt nd ext wwp. - Medical Decision Making 12/17/19 00:55 54 yo F with h/o copd/ substance abuse, hiv on LEES, htn DM here with c/o cough myalgia chills. h/o copd. pt states also having left sided chest pain with coughing. no fever. no n/v no diarrhea. no h/o pe or dvt. per staff at [facility] where pt admitted for detox, were concerned because oxygen sat were low. pt states she wears oxygen 3L at night. 12/17/19 00:56 on my exam min wheezing. normal effort. no leg jillian. no calf tenderness. will treat for copd. r/o pneumonia r acs, r/o infection such as pneumonia 12/17/19 00:58 wbc normal, labs unremarkable. flu swab negative. strept negative. 12/17/19 01:16 cxr negative for pneumonia. likley viral bronchitis. Heart Score/ECG Review #1 General ECG Interpretation: Sinus Rhythm, Normal Rate (101 sinus tachycardia.), Normal Intervals, No acute ischemic changes
[2019-12-17 01:00] LABS: N-TERMINAL BNP 17.6 pg/ml (5-125)
[2019-12-17] MEDS ORDERED: DOXYCYCLINE INJECTION 100 MG in DEXTROSE 5%-WATER - 100 ML IVPB ONE (01:23)
[2019-12-17 01:25] LABS: URINE APPEARANCE CLEAR; URINE BILIRUBIN NEGATIVE (NEGATIVE); URINE COLOR YELLOW; URINE GLUCOSE (UA) NEGATIVE (NEGATIVE); URINE KETONE NEGATIVE (NEGATIVE); URINE LEUK ESTERASE NEGATIVE (NEGATIVE); URINE NITRITE NEGATIVE (NEGATIVE); URINE PROTEIN NEGATIVE (NEGATIVE); URINE UROBILINOGEN 0.2 mg/dL (0.2-1.0)
[2019-12-17] MEDS ORDERED: methylPREDNISolone NA SUCC 125 MG/2 ML VIAL IVPUSH ONE (01:31)
[2019-12-17] MEDS ORDERED: DOXYCYCLINE HYCLATE 100 MG VIAL ONE (01:52)
[2019-12-17] MEDS ORDERED: methylPREDNISolone NA SUCC 125 MG/2 ML VIAL ONE (01:53)
--- NOTE | 2019-12-17 02:14 | PDOC ---
*Physical Exam - Vital Signs Last Vital Signs Temp Pulse Resp BP Pulse Ox 100.5 F H 110 H 20 106/62 94 L 12/16/19 21:23 12/16/19 21:23 12/16/19 21:23 12/16/19 21:23 12/16/19 21:23 ED Treatment Course - LABORATORY CBC & Chemistry Diagram: 12/16/19 23:30 12/16/19 23:30 - ADDITIONAL ORDERS Additional order review: Laboratory Results 12/17/19 12/16/19 00:49 23:30 Sodium 137 Potassium 5.0 Chloride 99 Carbon Dioxide 34 H Anion Gap 4 L BUN 13.0 Creatinine 0.7 Est GFR (CKD-EPI)AfAm 113.84 Est GFR (CKD-EPI)NonAf 98.23 Random Glucose 84 Calcium 8.7 Total Bilirubin 0.2 AST 25 ALT 21 Alkaline Phosphatase 86 Troponin I < 0.02 B-Natriuretic Peptide 17.6 Total Protein 7.3 Albumin 3.3 L Urine Color Yellow Urine Appearance Clear Urine pH 8.0 Ur Specific [place] 1.017 Urine Protein Negative Urine Glucose (UA) Negative Urine Ketones Negative Urine Blood Negative Urine Nitrite Negative Urine Bilirubin Negative Urine Urobilinogen 0.2 Ur Leukocyte Esterase Negative 12/16/19 23:30 RBC 4.87 MCV 79.1 L MCHC 32.0 RDW 14.5 MPV 9.5 Neutrophils % 40.5 L Lymphocytes % 43.3 H Monocytes % 10.5 H Eosinophils % 4.1 Basophils % 1.6 - Medications Given in the ED: ED Medications Discontinued Medications Generic Name Dose Route Start Last Admin Trade Name Freq PRN Reason Stop Dose Admin Acetaminophen 1,000 mg 12/16/19 23:56 12/17/19 00:48 Ofirmev Injection - IVPB 12/16/19 23:57 1,000 mg ONCE ONE Administration Albuterol/Ipratropium 1 amp 12/17/19 00:07 12/17/19 00:48 Duoneb - NEB 12/17/19 00:08 1 amp ONCE ONE Administration Albuterol/Ipratropium 1 amp 12/17/19 00:31 12/17/19 00:48 Duoneb - NEB 12/17/19 00:32 Not Given ONCE ONE Sodium Chloride 1,000 mls @ 1,000 mls/hr 12/17/19 00:09 12/17/19 00:48 Normal Saline - IV 12/17/19 01:08 1,000 mls/hr ASDIR STA Administration Medical Decision Making - Medical Decision Making 12/17/19 02:10 Pt signed out to me. Comes from [facility]. HIV+ flu negative; pt is being treated with abx for a simple COPD exacerbation. tachycardic and SOB; pt is awaiting CTA lungs because the signout doc is worried she may have a PE. Once CTA is complete, pt will be admitted to the medical floor. 12/17/19 03:51 Patient Name: LEV VARGAS THIS IS A PRELIMINARY REPORT FROM [facility] MAINTENANCE TECHNICIAN DATE OF SERVICE: 2019-12-17 01:52:04 IMAGES: [id number] EXAM: CHEST CTA HISTORY: Rule out PE COMPARISON: None. FINDINGS: There is no PE or dissection. Heart size is normal. The trachea and bronchi are patent. There is no pleural or pericardial effusion. The lungs are clear. No fractures identified. The upper abdominal structures are normal. IMPRESSION: No acute pathology. 12/17/19 03:51 Pt will be admitted for COPD exacerbation. 12/17/19 05:13 Hospitalists are aware of the patient. Discharge - Discharge Information Problems reviewed: Yes Clinical Impression/Diagnosis: Viral syndrome, COPD exacerbation Condition: Stable - Follow up/Referral - Patient Discharge Instructions - Post Discharge Activity
[2019-12-17] MEDS ORDERED: ONDANSETRON 4 MG/2 ML VIAL IVPUSH ONE (02:30)
[2019-12-17] MEDS ORDERED: ONDANSETRON 4 MG/2 ML VIAL ONE (02:33)
[2019-12-17] MEDS ORDERED: MELATONIN 5 MG TABLETS PO ONE ×2 (03:00→21:30)
[2019-12-17] MEDS ORDERED: SODIUM CHLORIDE 0.9% 500 ML INFUS.BAG IV ONE (03:10)
--- NOTE | 2019-12-17 04:27 | PN ---
Teaching Attending Note Name of Resident: Cesar Nicole ATTENDING PHYSICIAN STATEMENT I saw and evaluated the patient. I reviewed the resident's note and discussed the case with the resident. I agree with the resident's findings and plan as documented. SUBJECTIVE: Patient is a 54 year old woman with PMH of HIV infection (on HAART), NIDDM, HTN , COPD (on 3L O2 at night), Tobacco use and Polysubstance abuse (IV heroine, alcohol, cocaine) presenting from [facility] for evaluation of increased SOB and hypoxia. Patient reports dry cough for the past 3-4 days as well as left sided lateral chest pain. Pain is non radiating and described as a discomfort. Pain is worse with deep inspiration and cough; medications did not improve pain. She also reports sore throat, myalgias, rhinorrhea, chills and congestions for the past 1 day. She also reports urinary urgency but denies dysuria. Patient denies fever, chills, night sweats, headache, vision change, chest pain, palpitations, leg swelling, abdominal pain, nausea, vomiting, diarrhea, constipation, dysuria , hematuria, BPR, lightheadedness, weakness or sensory changes. Had several sick contacts including her but no recent travels. Has poor followup with her PCP and does not remember her last viral oad or CD4 count. OBJECTIVE: Alert and cachectic Vital Signs Period Temp Pulse Resp BP Sys/Hoang Pulse Ox Last 24 Hr 100.5 F 110 20 106/62 94 HEENT: No Jaundice, eye redness or discharge, PERRLA, EOMI. Normocephalic, atraumatic. External ears are normal and hearing is grossly intact. No nasal discharge. Neck: Supple, nontender. No palpable adenopathy or thyromegaly. No JVD Chest: Good effort. Clear to auscultation and percussion. Heart: Regular. No S3, rub or murmur Abdomen: Not distended, soft, nontender and no HSM. No rebound or guarding. Normal bowel sounds. Ext: Peripheral pulses intact. No leg edema. Skin: Warm and dry. No petechiae, rash or ecchymosis. Track lomeli and sequelae of IVDU. Neuro: Alert. Oriented x3. Not tremulous. CN 2-12 grossly intact. Sensation grossly intact in all four extremities and DTR are symmetric. Psych: Appropriate mood and affect. Good insight. Home Medications Medication Instructions Recorded Albuterol Sulfate Inhaler - 2 inh PO Q4H PRN 12/14/14 [Ventolin HFA Inhaler -] Montelukast Na [Singulair -] 10 mg PO HS 12/14/14 metFORMIN HCL [Glucophage -] 500 mg PO BID 12/14/14 Quetiapine Fumarate [Seroquel] 100 tab PO HS #30 tablet 07/23/17 Budesonide/Formeterol Fumarate 1 inh PO BID PRN 08/24/19 [SYMBICORT 160/4.5mcg -] Methadone [Dolophine -] 100 mg PO DAILY 08/24/19 Bictegrav/Emtricit/Tenofov Ala 1 each PO DAILY 12/13/19 [Biktarvy 50-200-25 mg Tablet] Oxycodone HCl/Acetaminophen 1 tablet PO BID PRN 12/13/19 [Percocet 10-325 mg Tablet] Albuterol 0.083% Nebulizer Vianey 1 amp NEB QID PRN 12/16/19 [Ventolin 0.083% Nebulizer Soln -] Megestrol Acetate Oral Susp 400 mg PO DAILY 12/16/19 [Megace Liquid -] Quetiapine Fumarate [Seroquel -] 50 mg PO HS 12/16/19 Abnormal Lab Results 12/16/19 12/16/19 23:30 23:30 MCV 79.1 L MCH 25.3 L Neutrophils % 40.5 L Lymphocytes % 43.3 H Monocytes % 10.5 H Carbon Dioxide 34 H Anion Gap 4 L Albumin 3.3 L ASSESSMENT AND PLAN: 1. COPD exacerbation/Viral syndrome - Flu swab and Gp A Strept Rapid test were negative. Chest/thorax CTA didnot show pulmonary embolism or infiltrates. Will send blood cultures. Being treated with Duoneb, Solumedrol, Symbicort, IV NS, O2 and Azithromycin. Will continue comprehensive care for all of patients comorbid conditions including HAART for HIV disease. Consult ID and get viral load/CD4 count. 2. Hypoalbuminemia - Possibly due to combined effects of malnutrition and inflammation associated with comorbid chronic conditions. Will ensure adequate dietary protein intake and also consult star route mail driver. 3. DM For now, we will hold the home diabetes drugs and implement sliding scale insulin regimen. Provide comprehensive diabetes care with patient teaching and counseling about the importance of adherence to prescribed diabetes regimen, euglycemia, eye care and foot care. 4. Tobacco Use Counseled on risks associated with tobacco use. We will provide patient all the necessary assistance to facilitate smoking cessation and prescribe Nicotine patch. 5. Polysubstance/Alcohol abuse - Implement [facility] alcohol withdrawal protocol and do neurochecks. Implement seizure, fall and aspiration precautions. Treat with thiamine and folic acid and monitor electrolytes (Ca,Mg, K,P). Counseled patient about abstaining from alcohol. Will consult physical security specialist and refer to alcohol detox upon discharge. 6. Hypertension - Has low/normal BP. Restart suitable outpatient antihypertensive drugs only when clinically appropriate. Counseled patient on the injurious effects of uncontrolled hypertension. Nonpharmacologic measures to control hypertension like weight loss, salt restriction and exercise discussed. Importance of adherence to treatment regimen and attainment of normotension emphasized. 7. DVT prophylaxis - Lovenox 40 mg SQ q 24 hours. 8. Advance directives - Full code
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
[2019-12-17] MEDS: SODIUM CHLORIDE 1,000 ML IV SCH (07:01)
[2019-12-17] MEDS ORDERED: ALBUTEROL SO4 0.083% IH SOL 2.5 MG/3 ML VIAL.NEB. NEB ONE (07:03)
[2019-12-17] MEDS: ALBUTEROL SO4 0.083% IH SOL 2.5 MG/3 ML VIAL.NEB. NEB SCH ×2 (07:04→13:58)
[2019-12-17] MEDS ORDERED: SODIUM CHLORIDE 1,000 ML IV SCH (07:30)
[2019-12-17] MEDS: INSULIN SLIDING SCALE (NOVOLOG) 1 VIAL SQ SCH ×3 (07:40→17:22)
[2019-12-17] MEDS ORDERED: ALBUTEROL SO4 0.083% IH SOL 2.5 MG/3 ML VIAL.NEB. NEB SCH (08:00)
[2019-12-17] MEDS: ALBUTEROL SO4 2.5/IPRATROPIUM 0.5 INH SOL 3 ML VIAL.NEB. NEB SCH ×4 (08:45→21:20)
[2019-12-17] MEDS: AZITHROMYCIN IVPB 500 MG/250 ML BAG IVPB SCH (09:53)
[2019-12-17] MEDS: methylPREDNISolone NA SUCC 40 MG/1 ML VIAL IVPUSH SCH ×2 (09:53→17:41)
[2019-12-17] MEDS: ENOXAPARIN NA (PORCINE) 40 MG/0.4 ML DISP.SYRIN SQ SCH (09:53)
[2019-12-17] MEDS ORDERED: METHADONE HCL 10 MG TABLET PO SCH (10:15)
--- NOTE | 2019-12-17 10:19 | PN ---
Progress Note (short form) - Note Progress Note: Patient seen at bedside complains of abdominal pain and nausea. Upset methadone not restarted yet. RRR S1 S2 lungs are clear bilaterally abd is soft slightly tender to palpation no edema of lower extremities Methadone verified by DAVID mendieta 100mg po daily. Will order will order robitussin for cough will order zofran for nausea EKG checked and QtC not prolonged Rest as per H&P done this AM Visit type - Emergency Visit Emergency Visit: Yes ED Registration Date: 12/17/19 Care time: The patient presented to the Emergency Department on the above date and was hospitalized for further evaluation of their emergent condition. - New Patient This patient is new to me today: Yes Date on this admission: 12/17/19 - Critical Care Critical Care patient: No
[2019-12-17] MEDS ORDERED: METHADONE HCL 10 MG TABLET ONE (10:29)
[2019-12-17] MEDS ORDERED: METHADONE HCL 40 MG DISPERSABLE TABLET ONE (10:29)
[2019-12-17] MEDS: METHADONE 20 MG, METHADONE 80 MG PO SCH (10:33)
[2019-12-17] MEDS: guaiFENesin 200 MG/10 ML 10 ML UNIT-DOSE CUPS PO PRN ×3 (10:36→21:53)
--- NOTE | 2019-12-17 13:14 | EKG ---
Test Reason : Blood Pressure : / mmHG Vent. Rate : 101 BPM Atrial Rate : 101 BPM P-R Int : 152 ms QRS Dur : 078 ms QT Int : 346 ms P-R-T Axes : 087 054 071 degrees QTc Int : 448 ms SINUS TACHYCARDIA OTHERWISE NORMAL ECG WHEN COMPARED WITH ECG OF 14-DEC-2019 12:15, NO SIGNIFICANT CHANGE WAS FOUND Confirmed by GARRETT CORONA MD ([id number]) on 12/17/2019 1:14:27 PM Referred By: Confirmed By:GARRETT CORONA MD
[2019-12-17 13:27] VITALS: BMI 22.1
--- NOTE | 2019-12-17 19:18 | PN ---
Progress Note (short form) - Note Progress Note: ID CONSULT DICTATED
[2019-12-17] MEDS ORDERED: IBUPROFEN 400 MG TABLET (FP) PO ONE (23:03)
[2019-12-17] MEDS ORDERED: BUDESONIDE/FORMETEROL FUMARATE 80/4.5 mcg INHALER IH ONE (23:04)
[2019-12-17] MEDS ORDERED: NICOTINE POLACRILEX 2 MG GUM BUC ONE (23:04)
[2019-12-18] MEDS: ALBUTEROL SO4 0.083% IH SOL 2.5 MG/3 ML VIAL.NEB. NEB PRN (01:22)
[2019-12-18] MEDS: methylPREDNISolone NA SUCC 40 MG/1 ML VIAL IVPUSH SCH ×3 (02:11→22:03)
[2019-12-18] MEDS ORDERED: diphenhydrAMINE HCL 25 MG CAPSULE (FP) PO ONE (02:34)
[2019-12-18] MEDS ORDERED: METHADONE HCL 10 MG TABLET ONE (06:10)
[2019-12-18] MEDS ORDERED: METHADONE HCL 40 MG DISPERSABLE TABLET ONE (06:10)
[2019-12-18] MEDS: SODIUM CHLORIDE 1,000 ML IV SCH ×2 (06:14→12:54)
[2019-12-18] MEDS: METHADONE 20 MG, METHADONE 80 MG PO SCH (06:14)
[2019-12-18] MEDS: guaiFENesin 200 MG/10 ML 10 ML UNIT-DOSE CUPS PO PRN ×2 (06:18→22:03)
[2019-12-18] MEDS: INSULIN SLIDING SCALE (NOVOLOG) 1 VIAL SQ SCH ×3 (06:30→17:16)
[2019-12-18] MEDS: ALBUTEROL SO4 2.5/IPRATROPIUM 0.5 INH SOL 3 ML VIAL.NEB. NEB SCH ×4 (08:00→21:45)
[2019-12-18 09:00] LABS: HEMATOCRIT 33.8 % (32.4-45.2); HEMOGLOBIN 10.9 GM/dL (10.7-15.3); MCH 25.2 pg (25.7-33.7); MCHC 32.3 g/dl (32.0-36.0); MEAN CELL VOLUME 78.1 fl (80-96); MEAN PLT VOLUME 9.5 fl (7.5-11.1); PLATELET COUNT 173 K/MM3 (134-434); RBC 4.33 M/mm3 (3.60-5.2); RDW 14.6 % (11.6-15.6); WHITE BLOOD COUNT 4.4 K/mm3 (4.0-10.0)
[2019-12-18 09:29] LABS: BLOOD UREA NITROGEN 17.9 mg/dL (7-18); CALCIUM 8.9 mg/dL (8.5-10.1); CREATININE 0.6 mg/dL (0.55-1.3); MAGNESIUM 2.3 mg/dL (1.8-2.4); PHOSPHOROUS 4.3 mg/dL (2.5-4.9); POTASSIUM 5.2 mmol/L (3.5-5.1)
[2019-12-18] MEDS: AZITHROMYCIN IVPB 500 MG/250 ML BAG IVPB SCH (09:44)
[2019-12-18] MEDS: ENOXAPARIN NA (PORCINE) 40 MG/0.4 ML DISP.SYRIN SQ SCH (09:44)
[2019-12-18] MEDS: ONDANSETRON 4 MG/2 ML VIAL IVPB PRN (10:08)
[2019-12-18] MEDS ORDERED: P-EPHED 60MG/TRIPROLIDI 2.5MG TABLET PO PRN (10:48)
[2019-12-18] MEDS ORDERED: BENZOCAINE/MENTH/CETYLPYRD CL 1 EACH LOZENGE MM PRN (10:48)
--- NOTE | 2019-12-18 11:04 | PN ---
Progress Note, Physician History of Present Illness: seen and examined at bedside. Endorses dry mouth and dry cough. States her SOB has improved. Hss dry nose from nasal cannula O2. Had nose bleed today from dry nose. Saline nasal spray ordered and asked to humidify O2. Frustrated because she wants to go back to [facility] and upset she isn't on all her home meds such as vitamins and HAART. Denies nausea vomiting fever chills chest pain diarrhea or constipation. Potassium 5.2 today. - Current Medication List Current Medications: Active Medications Albuterol Sulfate (Ventolin 0.083% Nebulizer Soln -) 1 amp NEB RQ4H PRN PRN Reason: SHORT OF BREATH/WHEEZING Last Admin: 12/18/19 01:22 Dose: 1 amp Albuterol/Ipratropium (Duoneb -) 1 amp NEB RQID RICKY Last Admin: 12/18/19 08:00 Dose: 1 amp Azithromycin (Zithromax -) 250 mg PO DAILY PENDING SALE TO [facility] Stop: 12/21/19 10:01 Benzocaine/Menthol (Cepacol Lozenge -) 1 each MM PRN PRN PRN Reason: SORE THROAT Budesonide/Formoterol Fumarate (Symbicort 160/4.5mcg -) 1 puff IH BID PENDING SALE TO [facility] Enoxaparin Sodium (Lovenox -) 40 mg SQ DAILY PENDING S[facility] TO [facility] Last Admin: 12/18/19 09:44 Dose: 40 mg Guaifenesin (Robitussin -) 10 ml PO Q4H PRN PRN Reason: COUGH Last Admin: 12/18/19 06:18 Dose: 10 ml Sodium Chloride (Normal Saline -) 1,000 mls @ 83 mls/hr IV ASDIR PENDING SALE TO [facility] Insulin Aspart (Novolog Vial Sliding Scale -) 1 vial SQ TIDAC PENDING SALE TO [facility]; Protocol Last Admin: 12/18/19 06:30 Dose: Not Given Megestrol Acetate (Megace Oral Suspension -) 400 mg PO DAILY [facility]END[facility] S[facility] TO [facility] Melatonin (Melatonin) 5 mg PO HS PENDING SALE TO [facility] Methadone HCl 20 mg/ Methadone (HCl 80 mg) 100 mg PO DAILY@0600 PENDING SALE TO [facility] Last Admin: 12/18/19 06:14 Dose: 100 mg Methylprednisolone Sodium Succinate (Solu-Medrol -) 40 mg IVPUSH BID PENDING SALE TO [facility] Montelukast Sodium (Singulair -) 10 mg PO [facility] Non-Formulary Medication (Bictegrav/Emtricit/Tenofov Ala) 1 each PO DAILY PENDING S[facility] TO [facility] Ondansetron HCl (Zofran Injection) 8 mg IVPB Q8H PRN PRN Reason: NAUSEA Last Admin: 12/18/19 10:08 Dose: 8 mg Multivit/Folic Acid/Iron ( Vitamins (Sjr) -) 1 tab PO DAILY PENDING SALE TO [facility] Pseudoephedrine/Triprolidine (Actifed -) 1 combo PO TID PRN PRN Reason: NASAL CONGESTION Sodium Chloride ([place] Nasal [place] -) 2 spray NS TID PRN PRN Reason: NASAL CONGESTION Thiamine HCl (Vitamin B1 -) 100 mg PO DAILY PENDING SALE TO [facility] - Objective Vital Signs: Vital Signs Temperature 97.5 F L 12/18/19 09:41 Pulse Rate 93 H 12/18/19 09:41 Respiratory Rate 20 12/18/19 09:41 Blood Pressure 97/50 L 12/18/19 09:41 O2 Sat by Pulse Oximetry (%) 96 12/17/19 21:00 Constitutional: Yes: No Distress, Anxious, Thin Eyes: Yes: Conjunctiva Clear HENT: Yes: Atraumatic Cardiovascular: Yes: Tachycardia Respiratory: Yes: Other (no wheezing. faint crackles at bases bilaterally.) Gastrointestinal: Yes: Soft. No: Tenderness, Epigastrium, Tenderness, Rebound, Vomiting Genitourinary: Yes: Other (no suprapubic tenderness) Musculoskeletal: Yes: WNL Extremities: Yes: WNL Edema: No Neurological: Yes: Alert, Oriented ...Motor Strength: WNL Psychiatric: Yes: Alert, Oriented Labs: CBC, BMP 12/18/19 07:00 12/18/19 07:00 - ....Imaging Chest X-ray: Report Reviewed Cat Scan: Report Reviewed Impression/Plan Impression/Plan: 54 y/o female PMH HTN, DM, HIV on HAART, polysubstance abuse (IV cocaine, IV heroine) and COPD on 3L home O2 presents with shortness of breath found to be hypoxemic. acute Hypoxemic respiratory failure secondary to acute COPD exacerbation flu swab neg continue bronchodilators symbicort decrease medrol to 40 BID Azithromycin 250mg po daily for 1 more day to complete 3 days continue robitussin for cough HIV restart home dose of biktarvy ID consult-discussed with Dr. Holly Polysubstance abuse To go back to [facility] for rehab continue methadone DM sliding scale insulin HTN BP borderline not on meds at this time F/E/N increase IVF to 83ml/hr from 42ml/hr mild hyperkalemia 5.2 continue to monitor Diabetic/low sodium diet-restart megace DVT prophylaxis Lovenox anticipate discharge tomorrow back to rehab Visit type - Emergency Visit Emergency Visit: Yes ED Registration Date: 12/17/19 Care time: The patient presented to the Emergency Department on the above date and was hospitalized for further evaluation of their emergent condition. - New Patient This patient is new to me today: No - Critical Care Critical Care patient: No
[2019-12-18] MEDS ORDERED: PNEUMOC 13-VAL CONJ-DIP CRM/PF 0.5 ML DISP.SYRIN IM ONE (11:09)
[2019-12-18] MEDS: BUDESONIDE/FORMETEROL FUMARATE 160/4.5 mcg INHALER IH SCH ×2 (11:26→22:14)
[2019-12-18] MEDS ORDERED: FLU VACCINE QUAD 60 MCG/0.5 ML (MDV 19-20) IM ONE (12:00)
[2019-12-18] MEDS ORDERED: PT OWN MED DRAWER 7, Y5N ONE ×3 (12:57→15:37)
[2019-12-18] MEDS: THIAMINE HCL 100 MG TABLET (FP) PO SCH (13:00)
[2019-12-18] MEDS: PATIENT'S OWN MEDICATION (NON-FORMULARY) (Bictegrav/Emtricit/Tenofov Ala 1 EACH) PO SCH (13:02)
[2019-12-18] MEDS: SODIUM CHLORIDE NASAL SPRAY 44 ML BOTTLE NS PRN (13:02)
[2019-12-18] MEDS: ONDANSETRON 4 MG/2 ML VIAL IVPB SCH (17:45)
--- NOTE | 2019-12-18 18:10 | PN ---
Progress Note (short form) - Note Progress Note: asked by RN to come and evaluate patient for abdominal pain multiple times today. I evaluated 3 times in addition to my daily follow up visit. Twice her pain was gone by the time I got there, one of the times she was eating chips and threw them at her daughter when i walked in the room. The third time She was on the toilet having abdominal pain and crying. she states she gets pain every time a new IV medication is started. She has complained with of pain when starting IV azithromycin, when solumedrol IV was given earlier today, and also when she got the Biktarvy. States she cant have a BM and cant pass flatus. Abdomen is soft non tender non distended Will start Protonix IV for possible dyspepsia Will also get flat/upright abdominal Xray Visit type - Emergency Visit Emergency Visit: Yes ED Registration Date: 12/17/19 Care time: The patient presented to the Emergency Department on the above date and was hospitalized for further evaluation of their emergent condition. - New Patient This patient is new to me today: No - Critical Care Critical Care patient: No
[2019-12-18] MEDS: PANTOPRAZOLE SODIUM 40 MG VIAL IVPUSH SCH (18:28)
[2019-12-18] MEDS: PRENATAL VITAMINS W/ FOLIC ACID TABLET (FP) PO SCH (20:44)
[2019-12-18] MEDS: MEGESTROL ACETATE 400 MG/10 ML UNIT DOSE CUP PO SCH (20:44)
[2019-12-18] MEDS ORDERED: ACETAMINOPHEN 1000 MG/100 ML VIAL (NON FORMULARY) IVPB ONE (20:56)
[2019-12-18] MEDS: MONTELUKAST NA 10 MG TABLET PO SCH (22:03)
[2019-12-18] MEDS: MELATONIN 5 MG TABLETS PO SCH (22:03)
[2019-12-19] MEDS: ONDANSETRON 4 MG/2 ML VIAL IVPB PRN ×2 (02:27→21:15)
[2019-12-19] MEDS ORDERED: POLYETHYLENE GLYCOL 3350 119 GM BTL PO ONE (03:30)
[2019-12-19] MEDS ORDERED: SENNOSIDES 8.6MG TABLET (FP) PO ONE (03:30)
[2019-12-19] MEDS ORDERED: DOCUSATE SODIUM 100 MG CAPSULE (FP) PO ONE (03:30)
[2019-12-19] MEDS ORDERED: diphenhydrAMINE HCL 25 MG CAPSULE (FP) PO ONE (03:41)
[2019-12-19] MEDS ORDERED: KETOROLAC TROMETHAMINE 30 MG/1 ML VIAL IVPUSH ONE (04:11)
[2019-12-19] MEDS: ALBUTEROL SO4 0.083% IH SOL 2.5 MG/3 ML VIAL.NEB. NEB PRN (04:54)
[2019-12-19] MEDS ORDERED: MINERAL OIL ENEMA 133 ML ENEMA PR ONE (05:00)
[2019-12-19] MEDS ORDERED: METHADONE HCL 40 MG DISPERSABLE TABLET ONE (06:20)
[2019-12-19] MEDS: INSULIN SLIDING SCALE (NOVOLOG) 1 VIAL SQ SCH ×3 (06:20→20:53)
[2019-12-19] MEDS ORDERED: METHADONE HCL 10 MG TABLET ONE (06:21)
[2019-12-19] MEDS: METHADONE 20 MG, METHADONE 80 MG PO SCH (06:22)
[2019-12-19] MEDS ORDERED: PROCHLORPERAZINE INJECTION 10 MG/2 ML VIAL IVPB ONE (06:29)
[2019-12-19] MEDS: SODIUM CHLORIDE 1,000 ML IV SCH ×2 (06:49→15:02)
[2019-12-19] MEDS: ALBUTEROL SO4 2.5/IPRATROPIUM 0.5 INH SOL 3 ML VIAL.NEB. NEB SCH ×4 (07:35→21:00)
--- NOTE | 2019-12-19 08:25 | PN ---
Teaching Attending Note Name of Resident: Aylin Mackay ATTENDING PHYSICIAN STATEMENT I saw and evaluated the patient. I reviewed the resident's note and discussed the case with the resident. I agree with the resident's findings and plan as documented. SUBJECTIVE: OBJECTIVE: Vital Signs Temperature 98.1 F 12/19/19 06:00 Pulse Rate 86 12/19/19 06:00 Respiratory Rate 12/19/19 06:00 Blood Pressure 107/66 12/19/19 06:00 O2 Sat by Pulse Oximetry (%) 95 12/18/19 21:00 General: Young woman, looks agitated complaint of nausea and vomiting HEENT; mucous membranes moist, no anemia, no jaundice, PERRLA, no nystagmus Neck: No JVD, supple, no bruit, thyroid palpably normal, normal carotid pulsations. Chest: Nontender, clear to auscultation bilaterally/bilateral wheezing/ bilateral basal rales. CVS: S1-S2 regular/irregular no murmur/gallop/rub Abdomen: Nondistended, soft, bowel sounds present. 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 , no gross motor sensory deficit CBC, BMP 12/18/19 07:00 12/18/19 07:00 Active Medications Albuterol Sulfate (Ventolin 0.083% Nebulizer Soln -) 1 amp NEB RQ4H PRN PRN Reason: SHORT OF BREATH/WHEEZING Last Admin: 12/19/19 04:54 Dose: 1 amp Albuterol/Ipratropium (Duoneb -) 1 amp NEB RQID [facility] Last Admin: 12/19/19 07:35 Dose: Not Given Azithromycin (Zithromax -) 250 mg PO ONCE ONE Stop: 12/19/19 10:01 Benzocaine/Menthol (Cepacol Lozenge -) 1 each MM PRN PRN PRN Reason: SORE THROAT Budesonide/Formoterol Fumarate (Symbicort 160/4.5mcg -) 1 puff IH BID [facility] Last Admin: 12/18/19 22:14 Dose: 1 puff Enoxaparin Sodium (Lovenox -) 40 mg SQ DAILY [facility] Last Admin: 12/18/19 09:44 Dose: 40 mg Guaifenesin (Robitussin -) 10 ml PO Q4H PRN PRN Reason: COUGH Last Admin: 12/18/19 22:03 Dose: 10 ml Sodium Chloride (Normal Saline -) 1,000 mls @ 83 mls/hr IV ASDIR [facility] Last Admin: 12/19/19 06:49 Dose: 83 mls/hr Insulin Aspart (Novolog Vial Sliding Scale -) 1 vial SQ TIDAC [facility]; Protocol Last Admin: 12/19/19 06:20 Dose: Not Given Megestrol Acetate (Megace Oral Suspension -) 400 mg PO DAILY [facility] Last Admin: 12/18/19 20:44 Dose: Not Given Melatonin (Melatonin) 5 mg PO [facility] Last Admin: 12/18/19 22:03 Dose: 5 mg Methadone HCl 20 mg/ Methadone (HCl 80 mg) 100 mg PO DAILY@0600 [facility] Last Admin: 12/19/19 06:22 Dose: 100 mg Methylprednisolone Sodium Succinate (Solu-Medrol -) 40 mg IVPUSH BID [facility] Last Admin: 12/18/19 22:03 Dose: 40 mg Montelukast Sodium (Singulair -) 10 mg PO [facility] Last Admin: 12/18/19 22:03 Dose: 10 mg Non-Formulary Medication (Bictegrav/Emtricit/Tenofov Ala) 1 each PO DAILY [facility] Last Admin: 12/18/19 13:02 Dose: 1 each Ondansetron HCl (Zofran Injection) 8 mg IVPB Q8H PRN PRN Reason: NAUSEA Last Admin: 12/19/19 02:27 Dose: 8 mg Ondansetron HCl (Zofran Injection) 8 mg IVPB DAILY [facility] Last Admin: 12/18/19 17:45 Dose: 8 mg Pantoprazole Sodium (Protonix Iv) 40 mg IVPUSH DAILY [facility] Last Admin: 12/18/19 18:28 Dose: 40 mg Multivit/Folic Acid/Iron ( Vitamins (Sjr) -) 1 tab PO DAILY [facility] Last Admin: 12/18/19 20:44 Dose: Not Given Pseudoephedrine/Triprolidine (Actifed -) 1 combo PO TID PRN PRN Reason: NASAL CONGESTION Last Admin: 12/18/19 13:01 Dose: 1 combo Sodium Chloride ([place] Nasal [place] -) 2 spray NS TID PRN PRN Reason: NASAL CONGESTION Last Admin: 01/19/20 13:02 Dose: 2 sprays Thiamine HCl (Vitamin B1 -) 100 mg PO DAILY [facility] Last Admin: 12/18/19 13:00 Dose: 100 mg X-ray abdomen: Large fecal load ASSESSMENT AND PLAN:54 y/o female PMH HTN, DM, HIV on HAART, polysubstance abuse (IV cocaine, IV heroine) and COPD on 3L home O2 presents with shortness of breath found to be hypoxemic. Problem List - Problems (1) COPD exacerbation Assessment/Plan: Continue current management CT chest negative for PE Problems reviewed: Yes Code(s): J44.1 - CHRONIC OBSTRUCTIVE PULMONARY DISEASE W (ACUTE) EXACERBATION (2) HIV (human immunodeficiency virus infection) Assessment/Plan: Follow-up ID Problems reviewed: Yes Code(s): Z21 - ASYMPTOMATIC HUMAN IMMUNODEFICIENCY VIRUS INFECTION STATUS Qualifiers: HIV symptom status: unspecified Qualified Code(s): B20 - Human immunodeficiency virus [HIV] disease (3) Diabetes mellitus type II, non insulin dependent Assessment/Plan: Noncompliant for control continue sliding scale insulin Problems reviewed: Yes Code(s): E11.9 - TYPE 2 DIABETES MELLITUS WITHOUT COMPLICATIONS (4) Substance induced mood disorder Assessment/Plan: Follow-up visit with detox program Problems reviewed: Yes Code(s): F19.94 - OTH PSYCHOACTIVE SUBSTANCE USE, UNSP W MOOD DISORDER (5) Mood disorder Assessment/Plan: Resume all home meds Problems reviewed: Yes Code(s): F39 - UNSPECIFIED MOOD [AFFECTIVE] DISORDER (6) Abdominal pain Assessment/Plan: Due to fecal impact history continue bowel regimen KUB shows no obstruction large fecal load GI consult. Problems reviewed: Yes Code(s): R10.9 - UNSPECIFIED ABDOMINAL PAIN
[2019-12-19 09:05] LABS: BASO % 0.1 % (0-2.0); HEMATOCRIT 35.6 % (32.4-45.2); HEMOGLOBIN 11.4 GM/dL (10.7-15.3); LYMPH % 16.8 % (8-40); MCH 25.1 pg (25.7-33.7); MCHC 32.1 g/dl (32.0-36.0); MEAN PLT VOLUME 9.2 fl (7.5-11.1); NEUT % 76.1 % (42.8-82.8); PLATELET COUNT 181 K/MM3 (134-434); RBC 4.56 M/mm3 (3.60-5.2); RDW 14.5 % (11.6-15.6); WHITE BLOOD COUNT 6.9 K/mm3 (4.0-10.0)
[2019-12-19 09:33] LABS: BLOOD UREA NITROGEN 22.7 mg/dL (7-18); CALCIUM 8.4 mg/dL (8.5-10.1); CREATININE 0.6 mg/dL (0.55-1.3); POTASSIUM 4.8 mmol/L (3.5-5.1)
[2019-12-19] MEDS ORDERED: AZITHROMYCIN 250 MG TABLET PO SCH (10:00)
[2019-12-19] MEDS ORDERED: AZITHROMYCIN 250 MG TABLET PO ONE (10:00)
--- NOTE | 2019-12-19 10:05 | EKG ---
Test Reason : Blood Pressure : / mmHG Vent. Rate : 111 BPM Atrial Rate : 111 BPM P-R Int : 156 ms QRS Dur : 072 ms QT Int : 312 ms P-R-T Axes : 051 043 040 degrees QTc Int : 424 ms SINUS TACHYCARDIA NONSPECIFIC ST AND T WAVE ABNORMALITY ABNORMAL ECG WHEN COMPARED WITH ECG OF 17-DEC-2019 00:50, T WAVE VARIATION Confirmed by MARTHA AYALA MD ([id number]) on 12/19/2019 10:05:28 AM Referred By: DEBORA Confirmed By:MARTHA AYALA MD
[2019-12-19] MEDS: BUDESONIDE/FORMETEROL FUMARATE 160/4.5 mcg INHALER IH SCH ×3 (11:04→21:56)
[2019-12-19] MEDS: PANTOPRAZOLE SODIUM 40 MG VIAL IVPUSH SCH (11:04)
[2019-12-19] MEDS: ENOXAPARIN NA (PORCINE) 40 MG/0.4 ML DISP.SYRIN SQ SCH (11:10)
[2019-12-19] MEDS: methylPREDNISolone NA SUCC 40 MG/1 ML VIAL IVPUSH SCH ×3 (11:12→21:15)
[2019-12-19] MEDS ORDERED: SODIUM PHOSPHATE/NA BIPHOS 133 ML ENEMA PR ONE (12:41)
--- NOTE | 2019-12-19 14:50 | CON.GI ---
Consult Consult Specialty:: GI Referred by:: [facility] Reason for Consultation:: Nausea, vomiting, abdominal pain, Fecal impaction - History of Present Illness Chief Complaint: Abdominal pain History of Present Illness: 54F admitted from [facility] ([facility], IV heroin/cocaine detox. She lives in the [place]) for evaluation of shortness of breath. Called to evaluated nausea, vomiting and abdominal pain. AXR revealed significant fecal retention. Last BM was 4 days ago. She describes chronic constipation for as long as she has been on methadone. She denies rectal bleeding she has never had a colonoscopy. Her father has a history of colon cancer, diagnosed in his 80's and his grandmother had colon cancer as well. - History Source History Provided By: Patient, Medical Record Limitations to Obtaining History: No Limitations - Past Medical History Pulmonary: Yes: Asthma, COPD ...LMP: 03/20/17 Infectious Disease: Yes: HIV (On ART) - Past Surgical History Additional Surgical History: right knee arthroscopy - Alcohol/Substance Use Hx Alcohol Use: Yes History of Substance Use: reports: Cocaine (last used 5 days ago), Heroin (last used 5 days ago) - Smoking History Smoking history: Former smoker Have you smoked in the past 12 months: Yes Aproximately how many cigarettes per day: 2 - Social History ADL: Independent History of Recent Travel: No Home Medications - Allergies Allergies/Adverse Reactions: Allergies Allergy/AdvReac Type Severity Reaction Status Date / Time No Known Allergies Allergy Verified 12/16/19 21:25 - Home Medications Home Medications: Ambulatory Orders Acetaminophen [Tylenol] 650 mg PO Q4H PRN 12/17/19 Albuterol 2.5/Ipratropium 0.5 [Duoneb -] 1 amp NEB Q4H PRN MDD 6 12/17/19 Albuterol Sulfate Inhaler - [Ventolin HFA Inhaler -] 2 puff IH Q4H PRN 12/17/19 Budesonide/Formeterol Fumarate [SYMBICORT 160/4.5mcg -] 1 inh PO BID 12/17/19 Guaifenesin Dm [Robitussin Dm -] 10 ml PO Q6H PRN 12/17/19 Ibuprofen [Motrin -] 400 mg PO Q6H PRN 12/17/19 Lidocaine 5% Patch [Lidoderm Patch -] 1 patch TP DAILY 12/17/19 Loperamide HCl [Imodium -] 4 mg PO Q6H PRN MDD 4 12/17/19 Mag Hydrox/Al Hydrox/Simeth [Mylanta *Suspension*] 30 ml PO Q6H PRN 12/17/19 Magnesium Hydroxide [Milk of Magnesia] 2,400 mg PO DAILY PRN 12/17/19 Megestrol Acetate Oral Susp [Megace Oral Suspension -] 400 mg PO DAILY 12/17/19 Melatonin 5 mg PO HS 12/17/19 Metformin HCl [Glucophage] 500 mg PO BID 12/17/19 Methadone [Dolophine -] 100 mg PO DAILY 12/17/19 Montelukast Sodium [Singulair] 10 mg PO HS 12/17/19 95/Iron Fum/Folic/Dha [ + Dha Combo Pack] 1 each PO DAILY 12/17 Thiamine Mononitrate [Vitamin B-1] 100 mg PO HS 12/17/19 Bictegrav/Emtricit/Tenofov Ala [Biktarvy 50-200-25 mg Tablet] 1 each PO DAILY Family Medical History Family Hx Cancer: Father (colon cancer) Other Family History: Mother: healthy. Father: colon cancer in 80's. 2 brothers / 1 sister: healthy. 2 sons, 1 daughter alive: healthy. 1 daughter: SIDS 1 daughter from fentanyl overdose. Great paternal GM: colon cancer Review of Systems - Review of Systems Respiratory: reports: SOB Gastrointestinal: reports: Abdominal Pain, Nausea, Vomiting. denies: Indigestion, Melena, Rectal Bleeding, Vomiting Blood Physical Exam-GI Vital Signs: Vital Signs Temperature 98.1 F 12/19/19 06:00 Pulse Rate 86 12/19/19 06:00 Respiratory Rate 12/19/19 06:00 Blood Pressure 107/66 12/19/19 06:00 O2 Sat by Pulse Oximetry (%) 95 12/18/19 21:00 Constitutional: Yes: Calm Eyes: No: Sclera Icterus HENT: Yes: Drooling Cardiovascular: Yes: Regular Rate and Rhythm Respiratory: Yes: CTA Bilaterally Gastrointestinal Inspection: No: Distention ...Auscultate: Yes: Normoactive Bowel Sounds ...Palpate: Yes: Soft, Tenderness (Mild TTP right abdomen with fullness in the right abdomen as well.) ...Percussion: No: Tympanitic ...Rectal Exam: Yes: Other ([place] [employer] present: No external lesions, no masses, scant brown stool. No stool burden in rectum that was amenable to manual disimpaction.) Edema: No (No LE edema) Neurological: Yes: Alert Labs: CBC, BMP 12/19/19 08:05 12/19/19 08:05 Hepatic Panel Total Bilirubin 0.2 mg/dL (0.2-1) 12/16/19 23:30 AST 25 U/L (15-37) 12/16/19 23:30 ALT 21 U/L (13-61) 12/16/19 23:30 Alkaline Phosphatase 86 U/L (45-117) 12/16/19 23:30 Albumin 3.3 g/dl (3.4-5.0) L 12/16/19 23:30 Problem List - Problems (1) Fecal impaction Assessment/Plan: In setting of opiate abuse and methadone use: Increased MiraLAX to 17g PO TID Ordered CT scan of the A/P without contrast to further evaluate Ordered TSH Clear liquids Code(s): K56.41 - FECAL IMPACTION
[2019-12-19] MEDS: THIAMINE HCL 100 MG TABLET (FP) PO SCH (16:42)
[2019-12-19] MEDS: MEGESTROL ACETATE 400 MG/10 ML UNIT DOSE CUP PO SCH (16:42)
[2019-12-19] MEDS: PATIENT'S OWN MEDICATION (NON-FORMULARY) (Bictegrav/Emtricit/Tenofov Ala 1 EACH) PO SCH (16:42)
[2019-12-19] MEDS: PRENATAL VITAMINS W/ FOLIC ACID TABLET (FP) PO SCH (16:42)
[2019-12-19] MEDS: ONDANSETRON 4 MG/2 ML VIAL IVPB SCH (16:43)
[2019-12-19] MEDS: POLYETHYLENE GLYCOL 3350 119 GM BTL PO SCH ×2 (20:56→21:56)
[2019-12-19] MEDS: DOCUSATE SODIUM 100 MG CAPSULE (FP) PO SCH (20:56)
[2019-12-19] MEDS: MONTELUKAST NA 10 MG TABLET PO SCH ×2 (20:57→21:57)
[2019-12-19] MEDS: SENNOSIDES 8.6MG TABLET (FP) PO SCH ×2 (20:57→21:56)
[2019-12-19] MEDS: MELATONIN 5 MG TABLETS PO SCH (21:55)
[2019-12-19] MEDS ORDERED: POLYETHYLENE GLYCOL 3350 119 GM BTL PO SCH (22:00)
[2019-12-20] MEDS ORDERED: diphenhydrAMINE HCL 25 MG CAPSULE (FP) PO ONE (00:56)
[2019-12-20] MEDS ORDERED: METHADONE HCL 40 MG DISPERSABLE TABLET ONE (05:52)
[2019-12-20] MEDS ORDERED: METHADONE HCL 10 MG TABLET ONE (05:53)
[2019-12-20] MEDS: METHADONE 20 MG, METHADONE 80 MG PO SCH (06:19)
[2019-12-20] MEDS: POLYETHYLENE GLYCOL 3350 119 GM BTL PO SCH ×2 (06:19→14:40)
[2019-12-20] MEDS: INSULIN SLIDING SCALE (NOVOLOG) 1 VIAL SQ SCH ×2 (06:24→11:50)
[2019-12-20] MEDS: ALBUTEROL SO4 2.5/IPRATROPIUM 0.5 INH SOL 3 ML VIAL.NEB. NEB SCH ×2 (07:25→11:25)
--- NOTE | 2019-12-20 08:14 | PN ---
Teaching Attending Note Name of Resident: Aylin Mackay ATTENDING PHYSICIAN STATEMENT I saw and evaluated the patient. I reviewed the resident's note and discussed the case with the resident. I agree with the resident's findings and plan as documented. SUBJECTIVE: Feeling improved after passing bowel movement denies any abdominal pain. OBJECTIVE: Vital Signs Temperature 98.7 F 12/20/19 06:00 Pulse Rate 86 12/20/19 06:00 Respiratory Rate 18 12/20/19 06:00 Blood Pressure 96/52 L 12/20/19 06:00 O2 Sat by Pulse Oximetry (%) 100 12/19/19 21:00 General: Young woman, looks agitated complaint of nausea and vomiting HEENT; mucous membranes moist, no anemia, no jaundice, PERRLA, no nystagmus Neck: No JVD, supple, no bruit, thyroid palpably normal, normal carotid pulsations. Chest: Nontender, clear to auscultation bilaterally/bilateral wheezing/ bilateral basal rales. CVS: S1-S2 regular/irregular no murmur/gallop/rub Abdomen: Nondistended, soft, bowel sounds present. 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 Impression: COPD exacerbation transferred to [facility] for rehabilitation Problem List - Problems (1) COPD exacerbation Assessment/Plan: Continue current management CT chest negative for PE Code(s): J44.1 - CHRONIC OBSTRUCTIVE PULMONARY DISEASE W (ACUTE) EXACERBATION (2) HIV (human immunodeficiency virus infection) Assessment/Plan: Follow-up ID Code(s): Z21 - ASYMPTOMATIC HUMAN IMMUNODEFICIENCY VIRUS INFECTION STATUS Qualifiers: HIV symptom status: unspecified Qualified Code(s): B20 - Human immunodeficiency virus [HIV] disease (3) Diabetes mellitus type II, non insulin dependent Assessment/Plan: Noncompliant for control continue sliding scale insulin Code(s): E11.9 - TYPE 2 DIABETES MELLITUS WITHOUT COMPLICATIONS (4) Substance induced mood disorder Assessment/Plan: Follow-up visit with detox program Code(s): F19.94 - OTH PSYCHOACTIVE SUBSTANCE USE, UNSP W MOOD DISORDER (5) Mood disorder Assessment/Plan: Resume all home meds Code(s): F39 - UNSPECIFIED MOOD [AFFECTIVE] DISORDER (6) Abdominal pain Assessment/Plan: GI input appreciated, improved after bowel movement, CT scan abdomen shows no obstruction or impaction . Code(s): R10.9 - UNSPECIFIED ABDOMINAL PAIN
[2019-12-20] MEDS ORDERED: PT OWN MED DRAWER 7, Y5N ONE (09:06)
[2019-12-20] MEDS: MEGESTROL ACETATE 400 MG/10 ML UNIT DOSE CUP PO SCH (10:53)
[2019-12-20] MEDS: PRENATAL VITAMINS W/ FOLIC ACID TABLET (FP) PO SCH (10:53)
[2019-12-20] MEDS: ONDANSETRON 4 MG/2 ML VIAL IVPB SCH (10:55)
[2019-12-20] MEDS: ENOXAPARIN NA (PORCINE) 40 MG/0.4 ML DISP.SYRIN SQ SCH (10:59)
[2019-12-20] MEDS: PANTOPRAZOLE SODIUM 40 MG VIAL IVPUSH SCH (10:59)
[2019-12-20] MEDS: methylPREDNISolone NA SUCC 40 MG/1 ML VIAL IVPUSH SCH (10:59)
[2019-12-20] MEDS: DOCUSATE SODIUM 100 MG CAPSULE (FP) PO SCH (11:00)
[2019-12-20] MEDS: THIAMINE HCL 100 MG TABLET (FP) PO SCH (11:00)
[2019-12-20] MEDS: SODIUM CHLORIDE 1,000 ML IV SCH (11:02)
[2019-12-20] MEDS: SODIUM CHLORIDE NASAL SPRAY 44 ML BOTTLE NS PRN (11:03)
[2019-12-20] MEDS: BUDESONIDE/FORMETEROL FUMARATE 160/4.5 mcg INHALER IH SCH (11:03)
[2019-12-20] MEDS ORDERED: predniSONE 10 MG TABLET (UD) PO SCH (11:45)
--- NOTE | 2019-12-20 12:02 | DS ---
Physical Examination Vital Signs: Vital Signs Temperature 98.7 F 12/20/19 06:00 Pulse Rate 86 12/20/19 06:00 Respiratory Rate 18 12/20/19 06:00 Blood Pressure 96/52 L 12/20/19 06:00 O2 Sat by Pulse Oximetry (%) 100 12/19/19 21:00 General: Young woman, looks agitated complaint of nausea and vomiting HEENT; mucous membranes moist, no anemia, no jaundice, PERRLA, no nystagmus Neck: No JVD, supple, no bruit, thyroid palpably normal, normal carotid pulsations. Chest: Nontender, clear to auscultation bilaterally/bilateral wheezing/ bilateral basal rales. CVS: S1-S2 regular/irregular no murmur/gallop/rub Abdomen: Nondistended, soft, bowel sounds present. 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 Discharge Summary Problems reviewed: Yes Reason For Visit: HYPOXIA, ACUTE EXACERBATION OF CHRONIC OBSTRUCTIVE Current Active Problems Abdominal pain (Acute) COPD exacerbation (Acute) Fecal impaction (Acute) Viral syndrome (Acute) Hospital Course: 54 year old woman with PMH of HIV infection (on HAART), type 2 diabetes mellitus , HTN, COPD (on 3L O2 at night), Tobacco use and Polysubstance abuse (IV heroine , alcohol, cocaine) presenting from [facility] for evaluation of increased SOB and hypoxia. Patient reports dry cough for the past 3-4 days as well as left sided lateral chest pain. On arrival to ED patient was hypoxic, considering high risk of PE underwent CT with PE protocol that shows no PE, no infiltrate patient was put on azithromycin and prednisone with appropriate improvement at present saturating 90 to 93% on 3 L nasal cannula her home dose denies any shortness of breath or cough, patient also complained of abdominal pain with nausea, CT abdomen performed that shows large fecal load in the transverse and ascending colon, no impaction or obstruction, bowel regimen is started patient responded appropriately today feels improved denies any shortness of breath chest pain abdominal pain nausea or vomiting. Will transfer patient back to rehabilitation at [facility]. Condition: Stable - Instructions Diet, Activity, Other Instructions: Low Salt diabetic diet. 3 L O2 inhalation to maintain O2 sats 92% P.o. prednisone 30 mg daily for 7 days Disposition: TRANSFER ACUTE CARE/OTHER HOSP - Home Medications Comprehensive Discharge Medication List: Ambulatory Orders Acetaminophen [Tylenol] 650 mg PO Q4H PRN 12/17/19 Albuterol 2.5/Ipratropium 0.5 [Duoneb -] 1 amp NEB Q4H PRN MDD 6 12/17/19 Albuterol Sulfate Inhaler - [Ventolin HFA Inhaler -] 2 puff IH Q4H PRN 12/17/19 Budesonide/Formeterol Fumarate [SYMBICORT 160/4.5mcg -] 1 inh PO BID 12/17/19 Guaifenesin Dm [Robitussin Dm -] 10 ml PO Q6H PRN 12/17/19 Ibuprofen [Motrin -] 400 mg PO Q6H PRN 12/17/19 Lidocaine 5% Patch [Lidoderm -] 1 patch TP DAILY 12/17/19 Loperamide HCl [Imodium -] 4 mg PO Q6H PRN MDD 4 12/17/19 Mag Hydrox/Al Hydrox/Simeth [Mylanta Oral Suspension -] 30 ml PO Q6H PRN Magnesium Hydroxide [Milk of Magnesia] 2,400 mg PO DAILY PRN 12/17/19 Megestrol Acetate Oral Susp [Megace Oral Suspension -] 400 mg PO DAILY 12/17/19 Melatonin 5 mg PO HS 12/17/19 Metformin HCl [Glucophage] 500 mg PO BID 12/17/19 Methadone [Dolophine -] 100 mg PO DAILY 12/17/19 Montelukast Sodium [Singulair] 10 mg PO HS 12/17/19 95/Iron Fum/Folic/Dha [ + Dha Combo Pack] 1 each PO DAILY 12/17 Thiamine Mononitrate [Vitamin B-1] 100 mg PO HS 12/17/19 Bictegrav/Emtricit/Tenofov Ala [Biktarvy 50-200-25 mg Tablet] 1 each PO DAILY Azithromycin [Zithromax 250mg Tablets -] 250 mg PO DAILY tablet 12/20/19 Docusate Sodium [Colace -] 100 mg PO DAILY capsule 12/20/19 Guaifenesin [Robitussin -] 10 ml PO Q4H PRN cup 12/20/19 Insulin Sliding Scale [Novolog Vial Sliding Scale -] 1 vial SQ TIDAC units Pantoprazole Sodium [Protonix IV] 40 mg IVPUSH DAILY vial 12/20/19 Polyethylene Glycol 3350 [Miralax 119 gm Btl -] 17 gm PO TID bottle 12/20/19 Sennosides [Senna -] 1 tab PO HS tablet 12/20/19 Sodium Chloride Nasal [place] [[place] Nasal [place] -] 2 spray NS TID PRN spray 12/20/19 Prescription Drug Monitoring Program (I-STOP) results: I-STOP reviewed and no issues identified
[2019-12-20] MEDS: PATIENT'S OWN MEDICATION (NON-FORMULARY) (Bictegrav/Emtricit/Tenofov Ala 1 EACH) PO SCH (12:23)
[2019-12-20 12:40] VITALS: BP 101/64; PULSE 91; TEMP 98.2
== END 2019-12-20 15:05 | disposition short-term general hospital (02) | DRG 140 ==
LOC: JER 21:06 → JERBED 12-17 04:33 → J5S 12-17 08:18
PROVIDERS: ADMIT Internal Medicine; ATTEND Internal Medicine
DX: J44.1 Chronic obstructive pulmonary disease with (acute) exacerbation (principal); Z21 Asymptomatic human immunodeficiency virus [HIV] infection status; F10.10 Alcohol abuse, uncomplicated; E88.09 Other disorders of plasma-protein metabolism, not elsewhere classified; F11.20 Opioid dependence, uncomplicated; E46 Unspecified protein-calorie malnutrition; I10 Essential (primary) hypertension; J06.9 Acute upper respiratory infection, unspecified; E11.9 Type 2 diabetes mellitus without complications; R50.9 Fever, unspecified; B34.9 Viral infection, unspecified; F17.210 Nicotine dependence, cigarettes, uncomplicated; J96.01 Acute respiratory failure with hypoxia; E87.5 Hyperkalemia; F19.94 Other psychoactive substance use, unspecified with psychoactive substance-induced mood disorder; F39 Unspecified mood [affective] disorder; R10.9 Unspecified abdominal pain; K56.41 Fecal impaction; Z99.81 Dependence on supplemental oxygen
CPT/HCPCS: 36415; 71046-TC-FY; 71275-TC; 74019-TC-FY; 74176-TC; 80048; 80053; 81003; 82962; 83735; 83880; 84100; 84443; 84484; 85025; 85027; 87070; 87086; 87804; 87880; 90670; 93005; 93010; 94640; 99284-25; G0008; G0009; J0131; J7030; Q2036; Q9967

== ENCOUNTER 2019-12-20 15:24 | Inpatient (IN) | payer OTHER ==
[2019-12-20 15:58] VITALS: BMI 21.1
[2019-12-20] MEDS ORDERED: MAG HYDROX/AL HYDROX/SIMETH 30 ML UNIT-DOSE CUP PO PRN (16:03)
[2019-12-20] MEDS ORDERED: MENTHOL/PHENOL 1 EACH UD MM PRN (16:03)
[2019-12-20] MEDS ORDERED: guaiFENesin 200 MG/10 ML 10 ML UNIT-DOSE CUPS PO PRN (16:03)
[2019-12-20] MEDS ORDERED: IBUPROFEN 400 MG TABLET (FP) PO PRN (16:03)
[2019-12-20] MEDS ORDERED: ACETAMINOPHEN 325 MG TABLET (FP) PO PRN (16:03)
[2019-12-20] MEDS ORDERED: LOPERAMIDE HCL 2 MG CAPSULE PO PRN (16:03)
[2019-12-20] MEDS ORDERED: MAGNESIUM CITRATE 300 ML BOTTLE PO PRN (16:03)
[2019-12-20] MEDS ORDERED: MAGNESIUM HYDROX 2400MG/30ML ORAL SUSPENSION 30 ML CUP PO PRN (16:03)
[2019-12-20] MEDS ORDERED: P-EPHED 60MG/TRIPROLIDI 2.5MG TABLET PO PRN (16:03)
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
[2019-12-20] MEDS ORDERED: SODIUM CHLORIDE NASAL SPRAY 44 ML BOTTLE NS PRN (16:19)
[2019-12-20] MEDS ORDERED: ALBUTEROL SO4 HFA INHALER IH PRN (16:19)
[2019-12-20] MEDS ORDERED: ALBUTEROL SO4 2.5/IPRATROPIUM 0.5 INH SOL 3 ML VIAL.NEB. NEB PRN (16:19)
[2019-12-20] MEDS ORDERED: AZITHROMYCIN 250 MG TABLET PO ONE (17:30)
[2019-12-20] MEDS: INSULIN SLIDING SCALE (NOVOLOG) 1 VIAL SQ SCH (17:38)
--- NOTE | 2019-12-20 20:01 | PN ---
Teaching Attending Note Name of Resident: Jason Chung ATTENDING PHYSICIAN STATEMENT I saw and evaluated the patient. I reviewed the resident's note and discussed the case with the resident. I agree with the resident's findings and plan as documented. SUBJECTIVE: pt returned from the hospital , dx COPD exacerbation , denies c/ o at this time, states she is feeling much better. OBJECTIVE: wnwd , NAD Vital Signs - 24 hr 12/20/19 12/20/19 15:48 17:03 Temperature 97.5 F L 97.5 F L Pulse Rate 98 H 98 H Respiratory 20 20 Rate Blood Pressure 108/74 108/74 ASSESSMENT AND PLAN: meds as per hospital d/c re-admit to rehab
[2019-12-20] MEDS: BUDESONIDE/FORMETEROL FUMARATE 160/4.5 mcg INHALER IH SCH (21:40)
[2019-12-20] MEDS ORDERED: THIAMINE HCL 100 MG TABLET (FP) PO SCH (22:00)
[2019-12-20] MEDS ORDERED: MONTELUKAST NA 10 MG TABLET PO SCH (22:00)
[2019-12-20] MEDS ORDERED: MELATONIN 5 MG TABLETS PO PRN (22:00)
[2019-12-20] MEDS ORDERED: SENNOSIDES 8.6MG TABLET (FP) PO SCH (22:00)
[2019-12-20] MEDS ORDERED: PT OWN MED DRAWER 7, Y5N ONE (23:36)
[2019-12-21] MEDS ORDERED: METHADONE 80 MG, METHADONE 20 MG PO SCH (06:00)
[2019-12-21] MEDS ORDERED: METHADONE HCL 40 MG DISPERSABLE TABLET ONE (06:19)
[2019-12-21] MEDS ORDERED: METHADONE HCL 10 MG TABLET ONE (06:19)
[2019-12-21] MEDS: INSULIN SLIDING SCALE (NOVOLOG) 1 VIAL SQ SCH ×2 (06:25→12:00)
[2019-12-21] MEDS ORDERED: PT OWN MED DRAWER 7, Y5N ONE (07:44)
[2019-12-21] MEDS ORDERED: BICTEGRAV/EMTRICIT/TENOFOV (BIKTARVY) 50-200-25 MG TABLET PO SCH (08:00)
[2019-12-21] MEDS ORDERED: POLYETHYLENE GLYCOL 3350 119 GM BTL PO SCH (10:00)
[2019-12-21] MEDS ORDERED: METHADONE HCL 10 MG TABLET PO SCH (10:00)
[2019-12-21] MEDS ORDERED: AZITHROMYCIN 250 MG TABLET PO SCH (10:00)
[2019-12-21] MEDS ORDERED: AZITHROMYCIN 250 MG TABLET PO ONE (10:00)
[2019-12-21] MEDS ORDERED: PRENATAL VITAMINS W/ FOLIC ACID TABLET (FP) PO SCH (10:00)
[2019-12-21] MEDS ORDERED: DOCUSATE SODIUM 100 MG CAPSULE (FP) PO SCH (10:00)
[2019-12-21] MEDS ORDERED: predniSONE 10 MG TABLET (UD) PO SCH ×2 (10:00)
[2019-12-21 10:24] VITALS: BP 103/60; PULSE 74; TEMP 98.6
[2019-12-21] MEDS: BUDESONIDE/FORMETEROL FUMARATE 160/4.5 mcg INHALER IH SCH (10:30)
--- NOTE | 2019-12-21 15:37 | DS ---
[facility] Rehab Discharge Summary - [facility] Rehab Discharge Summary Admission Date: 12/20/19 Discharge Date: 12/21/19 - History Present History: Alcohol dependence, Cocaine dependence, MMTP Pertinent Past History: 54 yo f w/ PMH HIV+(on ART),Asthma,COPD, Hep C,DM,Anemia. Psych Hx: Bipolar Disorder who was recently released from [facility] where she was treated for a COPD exacerbation. She was sent to [facility] from [facility] for worsening cough and SOB. She was treated and now presented for readmission to rehab. Patient states that she feels better now and is no longer short of breath. Patient has been on 2 liters of oxygen via nasal cannula, prednisone taper, and azithromycin. - Discharge Physical Exam Vital Signs: Vital Signs Temperature 98.6 F 12/21/19 10:00 Pulse Rate 74 12/21/19 10:00 Respiratory Rate 16 12/21/19 10:00 Blood Pressure 103/60 12/21/19 10:00 O2 Sat by Pulse Oximetry (%) 95 12/21/19 10:24 Pertinent Admission Physical Exam Findings: Physical General Appearance: No Apparent Distress, HEENTM: PERRLA Respiratory: Lungs Clear, Neck: Supple,Trachea in good position Cardiology: S1, S2. Abdominal: +Bowel Sounds, Non Tender, Flat, Soft Neurological: guest service agent II-XII NML intact, - Treatment Discharge Condition: Outpatient referral accepted (Patient will go to [facility] for aftercare.) Hospital Course: patient was admitted to [facility] after treatment for respiratory distress and low Oxygenation at [facility]. She was stable in rehab after that. She attended groups, had 1;1 with her counselor. - Medication Discharge Medications: Ambulatory Orders Melatonin 5 mg PO HS 12/17/19 Methadone [Dolophine -] 100 mg PO DAILY 12/17/19 Thiamine Mononitrate [Vitamin B-1] 100 mg PO HS 12/17/19 Azithromycin [Zithromax 250mg Tablets -] 250 mg PO DAILY tablet 12/20/19 Albuterol 2.5/Ipratropium 0.5 [Duoneb -] 1 amp NEB Q4H PRN #14 amp MDD 6 Albuterol Sulfate Inhaler - [Ventolin HFA Inhaler -] 2 puff IH Q4H PRN #1 inhaler 12/21/19 Azithromycin [Zithromax 250mg Tablets -] 500 mg PO DAILY 5 Days #5 tablet Bictegrav/Emtricit/Tenofov Ala [Biktarvy 50-200-25 mg Tablet] 1 each PO DAILY # 30 tablet 12/21/19 Budesonide/Formeterol Fumarate [SYMBICORT 160/4.5mcg -] 1 inh PO BID #1 inhaler 12/21/19 Docusate Sodium [Colace -] 100 mg PO DAILY #14 capsule 12/21/19 Insulin Sliding Scale [Novolog Vial Sliding Scale -] 1 vial SQ TIDAC #1 units Megestrol Acetate Oral Susp [Megace Oral Suspension -] 400 mg PO DAILY #30 ml Metformin HCl [Glucophage] 500 mg PO BID #30 tablet 12/21/19 Montelukast Sodium [Singulair] 10 mg PO HS #14 tablet 12/21/19 Polyethylene Glycol 3350 [Miralax 119 gm Btl -] 17 gm PO TID #1 bottle 12/21/19 95/Iron Fum/Folic/Dha [ + Dha Combo Pack] 1 each PO DAILY #14 combo..pkg 12/21/19 Sennosides [Senna -] 1 tab PO HS #14 tablet 12/21/19 Sodium Chloride Nasal [place] [Foyil [place] Nasal [place] -] 2 spray NS TID PRN #1 spray 12/21/19 predniSONE [Deltasone -] 0 mg PO DAILY #7 tablet 12/21/19 - Medication-Assisted Treatment (MAT) Medication-Assisted Treatment (MAT): Yes MAT Follow-up Referral: Methadone Maintainence treatment. - Discharge Instructions Diet, activity, other medical instructions: Diet: as tolerated Activity: as tolerated Other medical instructions: Please follow up with aftercare referral. - Diagnosis (1) COPD exacerbation Current Visit: No Status: Chronic (2) Alcohol dependence with withdrawal, uncomplicated Current Visit: No Status: Chronic (3) Cocaine dependence, uncomplicated Current Visit: No Status: Chronic (4) Opioid dependence on agonist therapy Current Visit: No Status: Chronic - Follow-up Referral Minutes to complete discharge: 20 - AMA Did Patient Leave Against Medical Advice: No
[2019-12-21 15:57] LABS: EPI CELLS 10.3 /HPF (0-5/HPF); HYALINE CASTS 4 /lpf (0-8); URINE APPEARANCE CLOUDY; URINE BACTERIA 114.4 /hpf (NEGATIVE); URINE BILIRUBIN NEGATIVE (NEGATIVE); URINE COLOR YELLOW; URINE GLUCOSE (UA) NEGATIVE (NEGATIVE); URINE KETONE NEGATIVE (NEGATIVE); URINE LEUK ESTERASE 2+ (NEGATIVE); URINE NITRITE NEGATIVE (NEGATIVE); URINE PROTEIN NEGATIVE (NEGATIVE); URINE RBC 1 /hpf (0-4); URINE UROBILINOGEN 0.2 mg/dL (0.2-1.0); URINE WBC 21 /hpf (0-5)
== END 2019-12-21 16:36 | disposition home or self-care (01) | DRG 772 ==
LOC: YASAS 15:24 → Y3E 16:14
PROVIDERS: ADMIT Allergy & Immunology; ATTEND Neuromusculoskeletal Medicine & OMM
PROC: HZ42ZZZ Group Counseling for Substance Abuse Treatment, Cognitive-Behavioral (ICD-10-PCS; principal; 2019-12-20)
DX: F10.20 Alcohol dependence, uncomplicated (principal); F11.20 Opioid dependence, uncomplicated; F14.20 Cocaine dependence, uncomplicated; F31.9 Bipolar disorder, unspecified; Z21 Asymptomatic human immunodeficiency virus [HIV] infection status; J44.1 Chronic obstructive pulmonary disease with (acute) exacerbation; J45.909 Unspecified asthma, uncomplicated; E11.9 Type 2 diabetes mellitus without complications; Z79.4 Long term (current) use of insulin; B18.2 Chronic viral hepatitis C; Z86.2 Personal history of diseases of the blood and blood-forming organs and certain disorders involving the immune mechanism; Z99.81 Dependence on supplemental oxygen
CPT/HCPCS: 81003; 82962; 94640

== ENCOUNTER 2020-10-23 20:36 | Inpatient (IN) | payer OTHER ==
[2020-10-23 21:32] VITALS: BMI 22.6
[2020-10-23] MEDS ORDERED: ALBUTEROL SO4 HFA INHALER IH PRN (22:31)
[2020-10-23] MEDS ORDERED: MAG HYDROX/AL HYDROX/SIMETH 30 ML UNIT-DOSE CUP PO PRN (22:33)
[2020-10-23] MEDS ORDERED: LORazepam 1 MG TABLET PO PRN (22:33)
[2020-10-23] MEDS ORDERED: ACETAMINOPHEN 325 MG TABLET (FP) PO PRN ×2 (22:33)
[2020-10-23] MEDS ORDERED: DICYCLOMINE HCL 10 MG CAPSULE PO PRN (22:33)
[2020-10-23] MEDS ORDERED: ONDANSETRON *ODT* 4 MG TABLET SL PRN (22:33)
[2020-10-23] MEDS ORDERED: guaiFENesin 200 MG/10 ML 10 ML UNIT-DOSE CUPS PO PRN (22:33)
[2020-10-23] MEDS ORDERED: BISMUTH SUBSALICYLATE 524 MG/30 ML UD PO PRN (22:33)
[2020-10-23] MEDS ORDERED: MAGNESIUM CITRATE 300 ML BOTTLE PO PRN (22:33)
[2020-10-23] MEDS ORDERED: MENTHOL/PHENOL 1 EACH UD MM PRN (22:33)
[2020-10-23] MEDS ORDERED: P-EPHED 60MG/TRIPROLIDI 2.5MG TABLET PO PRN (22:33)
[2020-10-23] MEDS ORDERED: LOPERAMIDE HCL 2 MG CAPSULE PO PRN (22:33)
[2020-10-23] MEDS ORDERED: METHOCARBAMOL 500 MG TABLET PO PRN (22:33)
[2020-10-23] MEDS ORDERED: MAGNESIUM HYDROX 2400MG/30ML ORAL SUSPENSION 30 ML CUP PO PRN (22:33)
[2020-10-24] MEDS: LORazepam 2 MG TABLET PO SCH ×5 (00:04→22:27)
[2020-10-24] MEDS ORDERED: MASKS NR ONE (01:13)
[2020-10-24] MEDS: metFORMIN HCL 500 MG TABLET (FP) PO SCH ×2 (07:21→17:29)
[2020-10-24] MEDS ORDERED: METHADONE HCL 10 MG TABLET PO ONE (08:30)
[2020-10-24] MEDS ORDERED: METHADONE 120 MG, METHADONE 20 MG PO ONE (08:45)
[2020-10-24] MEDS ORDERED: METHADONE HCL 40 MG DISPERSABLE TABLET ONE (09:14)
[2020-10-24] MEDS ORDERED: METHADONE HCL 10 MG TABLET ONE (09:14)
[2020-10-24] MEDS ORDERED: PRENATAL VITAMINS W/ FOLIC ACID TABLET (FP) PO SCH (10:00)
[2020-10-24] MEDS: NICOTINE 14 MG/24 HOURS TOPICAL PATCH TD SCH (10:18)
[2020-10-24] MEDS: BUDESONIDE/FORMETEROL FUMARATE 160/4.5 mcg INHALER IH SCH ×2 (10:21→22:27)
[2020-10-24 10:40] LABS: POTASSIUM 3.2 mmol/L (3.5-5.1)
[2020-10-24] MEDS ORDERED: SODIUM CHLORIDE NASAL SPRAY 44 ML BOTTLE NS PRN (10:41)
[2020-10-24 10:42] LABS: ALBUMIN 3.1 g/dl (3.4-5.0)
[2020-10-24 10:43] LABS: CALCIUM 8.5 mg/dL (8.5-10.1); HEMATOCRIT 33.5 % (32.4-45.2); HEMOGLOBIN 10.7 GM/dL (10.7-15.3); MCH 25.3 pg (25.7-33.7); MCHC 31.9 g/dl (32.0-36.0); MEAN CELL VOLUME 79.3 fl (80-96); MEAN PLT VOLUME 8.9 fl (7.5-11.1); PLATELET COUNT 211 K/MM3 (134-434); RBC 4.23 M/mm3 (3.60-5.2); RDW 14.4 % (11.6-15.6); WHITE BLOOD COUNT 3.2 K/mm3 (4.0-10.0)
[2020-10-24 10:47] LABS: CREATININE 0.8 mg/dL (0.55-1.3)
[2020-10-24 10:48] LABS: BILIRUBIN,TOTAL 0.3 mg/dL (0.2-1); TOT PROT 6.8 g/dl (6.4-8.2)
[2020-10-24] MEDS: POTASSIUM CHLORIDE TABS 20 MEQ TABLET.ER (FP) PO SCH ×2 (12:19→22:27)
[2020-10-24] MEDS: DOCUSATE SODIUM 100 MG CAPSULE (FP) PO SCH ×2 (15:13→22:27)
[2020-10-24] MEDS ORDERED: INSULIN SLIDING SCALE (NOVOLOG) 1 VIAL SQ SCH (22:00)
[2020-10-24] MEDS: INSULIN SLIDING SCALE (NOVOLOG) 1 VIAL SQ SCH (22:26)
[2020-10-24] MEDS: MONTELUKAST NA 10 MG TABLET PO SCH (22:27)
[2020-10-24] MEDS: THIAMINE HCL 100 MG TABLET (FP) PO SCH (22:27)
[2020-10-24] MEDS: MELATONIN 5 MG TABLETS PO SCH (22:28)
[2020-10-25] MEDS ORDERED: METHADONE HCL 10 MG TABLET ONE ×2 (04:21→10:06)
[2020-10-25] MEDS ORDERED: METHADONE HCL 40 MG DISPERSABLE TABLET ONE ×2 (04:21→10:07)
[2020-10-25] MEDS ORDERED: METHADONE HCL 40 MG DISPERSABLE TABLET PO SCH (06:00)
[2020-10-25] MEDS ORDERED: METHADONE 120 MG, METHADONE 20 MG PO SCH (06:00)
[2020-10-25] MEDS: LORazepam 1 MG TABLET PO SCH ×4 (07:50→22:28)
[2020-10-25] MEDS: DOCUSATE SODIUM 100 MG CAPSULE (FP) PO SCH ×3 (08:00→22:28)
[2020-10-25] MEDS: INSULIN SLIDING SCALE (NOVOLOG) 1 VIAL SQ SCH (08:21)
[2020-10-25] MEDS: metFORMIN HCL 500 MG TABLET (FP) PO SCH ×2 (08:21→17:09)
[2020-10-25] MEDS ORDERED: METHADONE HCL 10 MG TABLET PO ONE (08:46)
[2020-10-25] MEDS ORDERED: METHADONE 80 MG, METHADONE 30 MG PO SCH (09:15)
[2020-10-25] MEDS ORDERED: PATIENT'S OWN MEDICATION (NON-FORMULARY) (Bictegrav/Emtricit/Tenofov Ala 1 EACH Tablet) PO SCH (10:00)
[2020-10-25] MEDS: METHADONE 80 MG, METHADONE 30 MG PO SCH (10:34)
[2020-10-25] MEDS: POTASSIUM CHLORIDE TABS 20 MEQ TABLET.ER (FP) PO SCH ×2 (10:38→22:28)
[2020-10-25] MEDS: NICOTINE 14 MG/24 HOURS TOPICAL PATCH TD SCH (10:39)
[2020-10-25] MEDS: BUDESONIDE/FORMETEROL FUMARATE 160/4.5 mcg INHALER IH SCH ×2 (10:57→22:29)
[2020-10-25] MEDS: PRENATAL VITAMINS W/ FOLIC ACID TABLET (FP) PO SCH (10:57)
[2020-10-25] MEDS: DOXYCYCLINE HYCLATE 100 MG CAPSULE PO SCH ×2 (10:59→22:00)
[2020-10-25] MEDS: predniSONE 10 MG TABLET (UD) PO SCH (11:14)
[2020-10-25] MEDS: MEGESTROL ACETATE 400 MG/10 ML UNIT DOSE CUP PO SCH (11:15)
[2020-10-25] MEDS: MONTELUKAST NA 10 MG TABLET PO SCH (22:28)
[2020-10-25] MEDS: THIAMINE HCL 100 MG TABLET (FP) PO SCH (22:29)
[2020-10-25] MEDS: MELATONIN 5 MG TABLETS PO SCH (22:29)
[2020-10-26] MEDS ORDERED: LORazepam 0.5 MG TABLET PO PRN
[2020-10-26] MEDS ORDERED: METHADONE HCL 10 MG TABLET ONE (04:14)
[2020-10-26] MEDS ORDERED: METHADONE HCL 40 MG DISPERSABLE TABLET ONE (04:14)
[2020-10-26] MEDS ORDERED: METHADONE HCL 10 MG TABLET PO SCH (06:00)
[2020-10-26] MEDS: metFORMIN HCL 500 MG TABLET (FP) PO SCH ×2 (07:04→16:48)
[2020-10-26] MEDS: DOCUSATE SODIUM 100 MG CAPSULE (FP) PO SCH ×3 (07:04→22:40)
[2020-10-26] MEDS: LORazepam 0.5 MG TABLET PO SCH ×4 (07:04→22:40)
[2020-10-26] MEDS: METHADONE 80 MG, METHADONE 30 MG PO SCH (07:05)
[2020-10-26] MEDS: PRENATAL VITAMINS W/ FOLIC ACID TABLET (FP) PO SCH (07:11)
[2020-10-26] MEDS: IBUPROFEN 400 MG TABLET (FP) PO PRN ×2 (11:01→17:56)
[2020-10-26] MEDS: POTASSIUM CHLORIDE TABS 20 MEQ TABLET.ER (FP) PO SCH ×2 (11:02→22:39)
[2020-10-26] MEDS: BICTEGRAV/EMTRICIT/TENOFOV (BIKTARVY) 50-200-25 MG TABLET PO SCH (11:44)
[2020-10-26] MEDS: predniSONE 10 MG TABLET (UD) PO SCH (11:46)
[2020-10-26] MEDS: DOXYCYCLINE HYCLATE 100 MG CAPSULE PO SCH ×2 (11:46→17:49)
[2020-10-26] MEDS: BUDESONIDE/FORMETEROL FUMARATE 160/4.5 mcg INHALER IH SCH ×2 (13:08→22:40)
[2020-10-26] MEDS: NICOTINE 14 MG/24 HOURS TOPICAL PATCH TD SCH (13:08)
[2020-10-26] MEDS: MEGESTROL ACETATE 400 MG/10 ML UNIT DOSE CUP PO SCH (13:28)
[2020-10-26] MEDS: NICOTINE POLACRILEX 2 MG GUM BUC PRN ×2 (13:56→17:56)
[2020-10-26] MEDS: MONTELUKAST NA 10 MG TABLET PO SCH (22:39)
[2020-10-26] MEDS: MELATONIN 5 MG TABLETS PO SCH (22:41)
[2020-10-26] MEDS: THIAMINE HCL 100 MG TABLET (FP) PO SCH (22:43)
[2020-10-26 23:01] VITALS: TEMP 97.5
[2020-10-27] MEDS ORDERED: METHADONE HCL 40 MG DISPERSABLE TABLET ONE (04:28)
[2020-10-27] MEDS ORDERED: METHADONE HCL 10 MG TABLET ONE (04:28)
[2020-10-27] MEDS ORDERED: LORazepam 0.5 MG TABLET PO ONE (05:00)
[2020-10-27] MEDS: METHADONE 80 MG, METHADONE 30 MG PO SCH (06:10)
[2020-10-27] MEDS: DOCUSATE SODIUM 100 MG CAPSULE (FP) PO SCH (06:10)
[2020-10-27] MEDS: metFORMIN HCL 500 MG TABLET (FP) PO SCH (06:11)
[2020-10-27] MEDS: PRENATAL VITAMINS W/ FOLIC ACID TABLET (FP) PO SCH (07:43)
[2020-10-27 09:30] VITALS: BP 111/72; PULSE 86
[2020-10-27] MEDS: POTASSIUM CHLORIDE TABS 20 MEQ TABLET.ER (FP) PO SCH (10:08)
[2020-10-27] MEDS: predniSONE 10 MG TABLET (UD) PO SCH (10:08)
[2020-10-27] MEDS: MEGESTROL ACETATE 400 MG/10 ML UNIT DOSE CUP PO SCH (10:08)
[2020-10-27] MEDS: BICTEGRAV/EMTRICIT/TENOFOV (BIKTARVY) 50-200-25 MG TABLET PO SCH (10:08)
[2020-10-27] MEDS: NICOTINE 14 MG/24 HOURS TOPICAL PATCH TD SCH (10:09)
[2020-10-27] MEDS: BUDESONIDE/FORMETEROL FUMARATE 160/4.5 mcg INHALER IH SCH (10:09)
[2020-10-27] MEDS: DOXYCYCLINE HYCLATE 100 MG CAPSULE PO SCH (10:09)
[2020-10-27] MEDS: NICOTINE POLACRILEX 2 MG GUM BUC PRN (10:27)
== END 2020-10-27 12:02 | disposition other institution (70) | DRG 773 ==
LOC: YASAS 20:36 → Y6N 23:03
PROVIDERS: ADMIT Allergy & Immunology; ATTEND Allergy & Immunology
PROC: HZ2ZZZZ Detoxification Services for Substance Abuse Treatment (ICD-10-PCS; principal; 2020-10-23)
DX: F10.230 Alcohol dependence with withdrawal, uncomplicated (principal); F11.23 Opioid dependence with withdrawal; F14.20 Cocaine dependence, uncomplicated; F12.20 Cannabis dependence, uncomplicated; F17.210 Nicotine dependence, cigarettes, uncomplicated; F19.282 Other psychoactive substance dependence with psychoactive substance-induced sleep disorder; F19.24 Other psychoactive substance dependence with psychoactive substance-induced mood disorder; F32.9 Major depressive disorder, single episode, unspecified; Z21 Asymptomatic human immunodeficiency virus [HIV] infection status; J43.9 Emphysema, unspecified; J45.20 Mild intermittent asthma, uncomplicated; E11.9 Type 2 diabetes mellitus without complications; Z79.84 Long term (current) use of oral hypoglycemic drugs; B18.2 Chronic viral hepatitis C; D64.9 Anemia, unspecified; J20.9 Acute bronchitis, unspecified
CPT/HCPCS: 36415; 80053; 81025; 82962; 85027; 86780; 93005; 93010; C9803; U0003

== ENCOUNTER 2020-10-27 12:28 | Inpatient (IN) | payer OTHER ==
[2020-10-27] MEDS ORDERED: MAGNESIUM CITRATE 300 ML BOTTLE PO PRN (13:48)
[2020-10-27] MEDS ORDERED: LOPERAMIDE HCL 2 MG CAPSULE PO PRN (13:48)
[2020-10-27] MEDS ORDERED: MAGNESIUM HYDROX 2400MG/30ML ORAL SUSPENSION 30 ML CUP PO PRN (13:48)
[2020-10-27] MEDS ORDERED: IBUPROFEN 400 MG TABLET (FP) PO PRN (13:48)
[2020-10-27] MEDS ORDERED: guaiFENesin 200 MG/10 ML 10 ML UNIT-DOSE CUPS PO PRN (13:48)
[2020-10-27] MEDS ORDERED: MAG HYDROX/AL HYDROX/SIMETH 30 ML UNIT-DOSE CUP PO PRN (13:48)
[2020-10-27] MEDS ORDERED: MENTHOL/PHENOL 1 EACH UD MM PRN (13:48)
[2020-10-27] MEDS ORDERED: ALBUTEROL SO4 HFA INHALER IH PRN (13:49)
[2020-10-27] MEDS: metFORMIN HCL 500 MG TABLET (FP) PO SCH (16:33)
[2020-10-27] MEDS: INSULIN SLIDING SCALE (NOVOLOG) 1 VIAL SQ SCH ×2 (16:33→21:25)
[2020-10-27] MEDS: NICOTINE POLACRILEX 2 MG GUM BUC PRN (17:57)
[2020-10-27] MEDS: DOXYCYCLINE HYCLATE 100 MG CAPSULE PO SCH (18:20)
[2020-10-27] MEDS: THIAMINE HCL 100 MG TABLET (FP) PO SCH (21:23)
[2020-10-27] MEDS: MELATONIN 5 MG TABLETS PO SCH (21:23)
[2020-10-27] MEDS: MONTELUKAST NA 10 MG TABLET PO SCH (21:24)
[2020-10-27] MEDS: BUDESONIDE/FORMETEROL FUMARATE 160/4.5 mcg INHALER IH SCH (21:26)
[2020-10-27] MEDS ORDERED: metFORMIN HCL 500 MG TABLET (FP) PO SCH (22:00)
[2020-10-28] MEDS: metFORMIN HCL 500 MG TABLET (FP) PO SCH ×2 (07:19→16:41)
[2020-10-28] MEDS: INSULIN SLIDING SCALE (NOVOLOG) 1 VIAL SQ SCH ×4 (07:19→21:23)
[2020-10-28] MEDS: BICTEGRAV/EMTRICIT/TENOFOV (BIKTARVY) 50-200-25 MG TABLET PO SCH (07:19)
[2020-10-28] MEDS: METHADONE HCL 40 MG DISPERSABLE TABLET PO SCH (07:19)
[2020-10-28] MEDS ORDERED: PT OWN MED DRAWER 7, Y5N ONE (08:41)
[2020-10-28] MEDS: DOCUSATE SODIUM 100 MG CAPSULE (FP) PO SCH (09:02)
[2020-10-28] MEDS: predniSONE 10 MG TABLET (UD) PO SCH (09:02)
[2020-10-28] MEDS: MEGESTROL ACETATE 400 MG/10 ML UNIT DOSE CUP PO SCH (09:02)
[2020-10-28] MEDS: BUDESONIDE/FORMETEROL FUMARATE 160/4.5 mcg INHALER IH SCH ×2 (09:03→21:23)
[2020-10-28] MEDS: NICOTINE 14 MG/24 HOURS TOPICAL PATCH TD SCH (09:03)
[2020-10-28] MEDS: PRENATAL VITAMINS W/ FOLIC ACID TABLET (FP) PO SCH (09:03)
[2020-10-28] MEDS: DOXYCYCLINE HYCLATE 100 MG CAPSULE PO SCH ×2 (09:04→17:26)
[2020-10-28] MEDS: MAG HYDROX/AL HYDROX/SIMETH 30 ML UNIT-DOSE CUP PO PRN (12:23)
[2020-10-28] MEDS: NICOTINE POLACRILEX 2 MG GUM BUC PRN (15:12)
[2020-10-28] MEDS: MONTELUKAST NA 10 MG TABLET PO SCH (21:21)
[2020-10-28] MEDS: THIAMINE HCL 100 MG TABLET (FP) PO SCH (21:21)
[2020-10-28] MEDS: MELATONIN 5 MG TABLETS PO SCH (21:21)
[2020-10-28] MEDS: ACETAMINOPHEN 325 MG TABLET (FP) PO PRN (22:10)
[2020-10-28] MEDS ORDERED: hydrOXYzine PAMOATE 25 MG CAPSULE (FP) PO ONE (22:36)
[2020-10-29] MEDS: ALBUTEROL SO4 2.5/IPRATROPIUM 0.5 INH SOL 3 ML VIAL.NEB. NEB PRN (00:30)
[2020-10-29] MEDS: MAG HYDROX/AL HYDROX/SIMETH 30 ML UNIT-DOSE CUP PO PRN (06:07)
[2020-10-29] MEDS: METHADONE HCL 40 MG DISPERSABLE TABLET PO SCH (06:54)
[2020-10-29] MEDS: metFORMIN HCL 500 MG TABLET (FP) PO SCH ×2 (07:00→16:50)
[2020-10-29] MEDS: BICTEGRAV/EMTRICIT/TENOFOV (BIKTARVY) 50-200-25 MG TABLET PO SCH (07:44)
[2020-10-29] MEDS: INSULIN SLIDING SCALE (NOVOLOG) 1 VIAL SQ SCH ×4 (07:44→21:34)
[2020-10-29] MEDS ORDERED: PT OWN MED DRAWER 7, Y5N ONE ×3 (09:08→11:19)
[2020-10-29] MEDS ORDERED: COLLOIDAL OATMEAL 1 BAR EACH TP PRN (09:09)
[2020-10-29] MEDS: NICOTINE 14 MG/24 HOURS TOPICAL PATCH TD SCH (11:14)
[2020-10-29] MEDS: DOCUSATE SODIUM 100 MG CAPSULE (FP) PO SCH (11:14)
[2020-10-29] MEDS: PRENATAL VITAMINS W/ FOLIC ACID TABLET (FP) PO SCH (11:14)
[2020-10-29] MEDS: DOXYCYCLINE HYCLATE 100 MG CAPSULE PO SCH (11:14)
[2020-10-29] MEDS: MEGESTROL ACETATE 400 MG/10 ML UNIT DOSE CUP PO SCH (11:17)
[2020-10-29] MEDS: BUDESONIDE/FORMETEROL FUMARATE 160/4.5 mcg INHALER IH SCH ×2 (11:17→21:34)
[2020-10-29] MEDS: DOXYCYCLINE HYCLATE 100 MG TABLET PO SCH ×2 (11:18→18:08)
[2020-10-29] MEDS: NICOTINE POLACRILEX 2 MG GUM BUC PRN (11:21)
[2020-10-29] MEDS: predniSONE 10 MG TABLET (UD) PO SCH (13:38)
[2020-10-29] MEDS: MONTELUKAST NA 10 MG TABLET PO SCH (21:33)
[2020-10-29] MEDS: THIAMINE HCL 100 MG TABLET (FP) PO SCH (21:34)
[2020-10-29] MEDS: MELATONIN 5 MG TABLETS PO SCH (21:34)
[2020-10-29] MEDS ORDERED: MELATONIN 5 MG TABLETS PO ONE (23:15)
[2020-10-30] MEDS: ALBUTEROL SO4 2.5/IPRATROPIUM 0.5 INH SOL 3 ML VIAL.NEB. NEB PRN (01:26)
[2020-10-30] MEDS ORDERED: METHADONE HCL 40 MG DISPERSABLE TABLET ONE (05:37)
[2020-10-30] MEDS ORDERED: METHADONE HCL 10 MG TABLET ONE (05:38)
[2020-10-30] MEDS ORDERED: METHADONE HCL 40 MG DISPERSABLE TABLET PO SCH (06:00)
[2020-10-30] MEDS: METHADONE 120 MG, METHADONE 10 MG PO SCH (06:07)
[2020-10-30] MEDS: INSULIN SLIDING SCALE (NOVOLOG) 1 VIAL SQ SCH ×4 (07:00→21:24)
[2020-10-30] MEDS: metFORMIN HCL 500 MG TABLET (FP) PO SCH ×2 (07:00→16:30)
[2020-10-30] MEDS: BICTEGRAV/EMTRICIT/TENOFOV (BIKTARVY) 50-200-25 MG TABLET PO SCH (07:01)
[2020-10-30] MEDS ORDERED: PT OWN MED DRAWER 7, Y5N ONE (08:58)
[2020-10-30] MEDS: predniSONE 10 MG TABLET (UD) PO SCH (10:03)
[2020-10-30] MEDS: MEGESTROL ACETATE 400 MG/10 ML UNIT DOSE CUP PO SCH (10:03)
[2020-10-30] MEDS: DOCUSATE SODIUM 100 MG CAPSULE (FP) PO SCH (10:03)
[2020-10-30] MEDS: DOXYCYCLINE HYCLATE 100 MG TABLET PO SCH (10:03)
[2020-10-30] MEDS: PRENATAL VITAMINS W/ FOLIC ACID TABLET (FP) PO SCH (10:03)
[2020-10-30] MEDS: BUDESONIDE/FORMETEROL FUMARATE 160/4.5 mcg INHALER IH SCH ×2 (10:04→21:25)
[2020-10-30] MEDS: NICOTINE 14 MG/24 HOURS TOPICAL PATCH TD SCH (10:04)
[2020-10-30] MEDS: NICOTINE POLACRILEX 2 MG GUM BUC PRN ×2 (10:06→23:05)
[2020-10-30] MEDS ORDERED: ALBUTEROL SO4 HFA INHALER IH PRN (11:19)
[2020-10-30] MEDS: ALBUTEROL SO4 HFA INHALER IH SCH ×4 (13:15→23:54)
[2020-10-30] MEDS: MELATONIN 5 MG TABLETS PO SCH (21:23)
[2020-10-30] MEDS: MONTELUKAST NA 10 MG TABLET PO SCH (21:23)
[2020-10-30] MEDS: THIAMINE HCL 100 MG TABLET (FP) PO SCH (21:23)
[2020-10-30] MEDS: QUEtiapine FUMARATE 50 MG TABLET PO SCH (21:24)
[2020-10-31] MEDS: ALBUTEROL SO4 HFA INHALER IH SCH ×5 (04:00→20:20)
[2020-10-31] MEDS ORDERED: METHADONE HCL 10 MG TABLET ONE (05:36)
[2020-10-31] MEDS ORDERED: METHADONE HCL 40 MG DISPERSABLE TABLET ONE (05:36)
[2020-10-31] MEDS: METHADONE 120 MG, METHADONE 10 MG PO SCH (06:02)
[2020-10-31] MEDS: metFORMIN HCL 500 MG TABLET (FP) PO SCH ×2 (07:16→16:29)
[2020-10-31] MEDS: INSULIN SLIDING SCALE (NOVOLOG) 1 VIAL SQ SCH ×4 (07:16→21:17)
[2020-10-31] MEDS: BICTEGRAV/EMTRICIT/TENOFOV (BIKTARVY) 50-200-25 MG TABLET PO SCH (07:16)
[2020-10-31] MEDS ORDERED: PT OWN MED DRAWER 7, Y5N ONE (09:06)
[2020-10-31] MEDS: predniSONE 10 MG TABLET (UD) PO SCH (09:53)
[2020-10-31] MEDS: PRENATAL VITAMINS W/ FOLIC ACID TABLET (FP) PO SCH (09:53)
[2020-10-31] MEDS: DOCUSATE SODIUM 100 MG CAPSULE (FP) PO SCH (09:53)
[2020-10-31] MEDS: MEGESTROL ACETATE 400 MG/10 ML UNIT DOSE CUP PO SCH (09:53)
[2020-10-31] MEDS: BUDESONIDE/FORMETEROL FUMARATE 160/4.5 mcg INHALER IH SCH ×2 (09:53→21:18)
[2020-10-31] MEDS: NICOTINE 14 MG/24 HOURS TOPICAL PATCH TD SCH (09:53)
[2020-10-31] MEDS: NICOTINE POLACRILEX 2 MG GUM BUC PRN (09:54)
[2020-10-31] MEDS: MAG HYDROX/AL HYDROX/SIMETH 30 ML UNIT-DOSE CUP PO PRN (09:56)
[2020-10-31] MEDS: ALBUTEROL SO4 2.5/IPRATROPIUM 0.5 INH SOL 3 ML VIAL.NEB. NEB PRN (13:23)
[2020-10-31] MEDS: MONTELUKAST NA 10 MG TABLET PO SCH (21:17)
[2020-10-31] MEDS: MELATONIN 5 MG TABLETS PO SCH (21:17)
[2020-10-31] MEDS: QUEtiapine FUMARATE 50 MG TABLET PO SCH (21:17)
[2020-10-31] MEDS: THIAMINE HCL 100 MG TABLET (FP) PO SCH (21:17)
[2020-11-01] MEDS: ALBUTEROL SO4 HFA INHALER IH SCH ×7 (00:09→23:34)
[2020-11-01] MEDS ORDERED: METHADONE HCL 40 MG DISPERSABLE TABLET ONE (03:08)
[2020-11-01] MEDS ORDERED: METHADONE HCL 10 MG TABLET ONE (03:08)
[2020-11-01] MEDS: METHADONE 120 MG, METHADONE 10 MG PO SCH (06:04)
[2020-11-01] MEDS: INSULIN SLIDING SCALE (NOVOLOG) 1 VIAL SQ SCH ×2 (06:08→13:32)
[2020-11-01] MEDS: metFORMIN HCL 500 MG TABLET (FP) PO SCH ×2 (07:00→16:24)
[2020-11-01] MEDS: BICTEGRAV/EMTRICIT/TENOFOV (BIKTARVY) 50-200-25 MG TABLET PO SCH (07:33)
[2020-11-01] MEDS: PRENATAL VITAMINS W/ FOLIC ACID TABLET (FP) PO SCH (09:55)
[2020-11-01] MEDS: DOCUSATE SODIUM 100 MG CAPSULE (FP) PO SCH (09:55)
[2020-11-01] MEDS: BUDESONIDE/FORMETEROL FUMARATE 160/4.5 mcg INHALER IH SCH ×2 (09:55→21:59)
[2020-11-01] MEDS: MAG HYDROX/AL HYDROX/SIMETH 30 ML UNIT-DOSE CUP PO PRN (09:55)
[2020-11-01] MEDS: predniSONE 10 MG TABLET (UD) PO SCH (09:55)
[2020-11-01] MEDS: NICOTINE 14 MG/24 HOURS TOPICAL PATCH TD SCH (09:56)
[2020-11-01] MEDS: MEGESTROL ACETATE 400 MG/10 ML UNIT DOSE CUP PO SCH (09:56)
[2020-11-01] MEDS ORDERED: PT OWN MED DRAWER 7, Y5N ONE (09:56)
[2020-11-01] MEDS: NICOTINE POLACRILEX 2 MG GUM BUC PRN ×2 (09:56→21:23)
[2020-11-01] MEDS: ALBUTEROL SO4 2.5/IPRATROPIUM 0.5 INH SOL 3 ML VIAL.NEB. NEB PRN (11:21)
[2020-11-01] MEDS: MELATONIN 5 MG TABLETS PO SCH (21:21)
[2020-11-01] MEDS: THIAMINE HCL 100 MG TABLET (FP) PO SCH (21:21)
[2020-11-01] MEDS: QUEtiapine FUMARATE 50 MG TABLET PO SCH (21:22)
[2020-11-01] MEDS: MONTELUKAST NA 10 MG TABLET PO SCH (21:22)
[2020-11-01] MEDS ORDERED: INSULIN SLIDING SCALE (NOVOLOG) 1 VIAL SQ SCH (22:00)
[2020-11-02] MEDS: ALBUTEROL SO4 HFA INHALER IH SCH ×5 (04:00→20:25)
[2020-11-02] MEDS ORDERED: METHADONE HCL 10 MG TABLET ONE (05:36)
[2020-11-02] MEDS ORDERED: METHADONE HCL 40 MG DISPERSABLE TABLET ONE (05:36)
[2020-11-02] MEDS: METHADONE 120 MG, METHADONE 10 MG PO SCH (06:44)
[2020-11-02] MEDS: NICOTINE POLACRILEX 2 MG GUM BUC PRN ×4 (06:48→21:18)
[2020-11-02] MEDS ORDERED: INSULIN SLIDING SCALE (NOVOLOG) 1 VIAL SQ SCH (07:08)
[2020-11-02] MEDS: metFORMIN HCL 500 MG TABLET (FP) PO SCH ×2 (07:26→16:48)
[2020-11-02] MEDS: BICTEGRAV/EMTRICIT/TENOFOV (BIKTARVY) 50-200-25 MG TABLET PO SCH (07:26)
[2020-11-02] MEDS ORDERED: PT OWN MED DRAWER 7, Y5N ONE (08:49)
[2020-11-02] MEDS: DOCUSATE SODIUM 100 MG CAPSULE (FP) PO SCH (10:19)
[2020-11-02] MEDS: PRENATAL VITAMINS W/ FOLIC ACID TABLET (FP) PO SCH (10:19)
[2020-11-02] MEDS: MEGESTROL ACETATE 400 MG/10 ML UNIT DOSE CUP PO SCH (10:19)
[2020-11-02] MEDS: NICOTINE 14 MG/24 HOURS TOPICAL PATCH TD SCH (10:21)
[2020-11-02] MEDS: BUDESONIDE/FORMETEROL FUMARATE 160/4.5 mcg INHALER IH SCH ×2 (10:22→21:17)
[2020-11-02] MEDS: ALBUTEROL SO4 2.5/IPRATROPIUM 0.5 INH SOL 3 ML VIAL.NEB. NEB PRN (15:28)
[2020-11-02] MEDS: MAG HYDROX/AL HYDROX/SIMETH 30 ML UNIT-DOSE CUP PO PRN (16:49)
[2020-11-02] MEDS: INSULIN SLIDING SCALE (NOVOLOG) 1 VIAL SQ SCH (16:50)
[2020-11-02] MEDS: THIAMINE HCL 100 MG TABLET (FP) PO SCH (21:16)
[2020-11-02] MEDS: MONTELUKAST NA 10 MG TABLET PO SCH (21:16)
[2020-11-02] MEDS: QUEtiapine FUMARATE 50 MG TABLET PO SCH (21:16)
[2020-11-02] MEDS: MELATONIN 5 MG TABLETS PO SCH (21:16)
[2020-11-03] MEDS: ACETAMINOPHEN 325 MG TABLET (FP) PO PRN ×2 (01:29→21:47)
[2020-11-03] MEDS: MAG HYDROX/AL HYDROX/SIMETH 30 ML UNIT-DOSE CUP PO PRN ×2 (01:30→07:37)
[2020-11-03] MEDS: ALBUTEROL SO4 HFA INHALER IH SCH ×6 (04:29→21:45)
[2020-11-03] MEDS ORDERED: METHADONE HCL 10 MG TABLET ONE (05:13)
[2020-11-03] MEDS ORDERED: METHADONE HCL 40 MG DISPERSABLE TABLET ONE (05:13)
[2020-11-03] MEDS: METHADONE 120 MG, METHADONE 10 MG PO SCH (06:08)
[2020-11-03] MEDS: metFORMIN HCL 500 MG TABLET (FP) PO SCH ×2 (07:30→17:09)
[2020-11-03] MEDS: BICTEGRAV/EMTRICIT/TENOFOV (BIKTARVY) 50-200-25 MG TABLET PO SCH (07:31)
[2020-11-03] MEDS: INSULIN SLIDING SCALE (NOVOLOG) 1 VIAL SQ SCH ×2 (07:31→17:11)
[2020-11-03] MEDS: NICOTINE POLACRILEX 2 MG GUM BUC PRN ×2 (07:38→21:48)
[2020-11-03] MEDS ORDERED: PT OWN MED DRAWER 7, Y5N ONE ×2 (08:57→09:36)
[2020-11-03 09:34] LABS: EPI CELLS >36 /uL (0-25.1); HYALINE CASTS 0 /uL (0-3.1); PH,URINE >= 9.0 (5.0-8.0); URINE APPEARANCE CLEAR; URINE BACTERIA 427 /uL (0-1359); URINE BILIRUBIN NEGATIVE (NEGATIVE); URINE COLOR YELLOW; URINE GLUCOSE (UA) NEGATIVE (NEGATIVE); URINE KETONE NEGATIVE (NEGATIVE); URINE LEUK ESTERASE 1+ (NEGATIVE); URINE NITRITE NEGATIVE (NEGATIVE); URINE PROTEIN NEGATIVE (NEGATIVE); URINE RBC 4 /uL (0-23.9); URINE UROBILINOGEN 0.2 mg/dL (0.2-1.0); URINE WBC 57 /uL (0-25.8)
[2020-11-03] MEDS: DOCUSATE SODIUM 100 MG CAPSULE (FP) PO SCH (10:14)
[2020-11-03] MEDS: PRENATAL VITAMINS W/ FOLIC ACID TABLET (FP) PO SCH (10:14)
[2020-11-03] MEDS: NICOTINE 14 MG/24 HOURS TOPICAL PATCH TD SCH (10:15)
[2020-11-03] MEDS: MEGESTROL ACETATE 400 MG/10 ML UNIT DOSE CUP PO SCH (10:15)
[2020-11-03] MEDS: BUDESONIDE/FORMETEROL FUMARATE 160/4.5 mcg INHALER IH SCH ×2 (10:16→21:45)
[2020-11-03] MEDS: MELATONIN 5 MG TABLETS PO SCH (21:44)
[2020-11-03] MEDS: MONTELUKAST NA 10 MG TABLET PO SCH (21:44)
[2020-11-03] MEDS: QUEtiapine FUMARATE 50 MG TABLET PO SCH (21:44)
[2020-11-03] MEDS: THIAMINE HCL 100 MG TABLET (FP) PO SCH (21:45)
[2020-11-04] MEDS: MAG HYDROX/AL HYDROX/SIMETH 30 ML UNIT-DOSE CUP PO PRN (01:01)
[2020-11-04] MEDS: ACETAMINOPHEN 325 MG TABLET (FP) PO PRN (02:54)
[2020-11-04] MEDS: ALBUTEROL SO4 HFA INHALER IH SCH ×6 (04:00→20:40)
[2020-11-04] MEDS ORDERED: METHADONE HCL 10 MG TABLET ONE (05:40)
[2020-11-04] MEDS ORDERED: METHADONE HCL 40 MG DISPERSABLE TABLET ONE (05:40)
[2020-11-04] MEDS: METHADONE 120 MG, METHADONE 10 MG PO SCH (06:10)
[2020-11-04] MEDS: BICTEGRAV/EMTRICIT/TENOFOV (BIKTARVY) 50-200-25 MG TABLET PO SCH (07:16)
[2020-11-04] MEDS: INSULIN SLIDING SCALE (NOVOLOG) 1 VIAL SQ SCH ×2 (07:16→17:28)
[2020-11-04] MEDS: metFORMIN HCL 500 MG TABLET (FP) PO SCH ×2 (07:16→17:27)
[2020-11-04] MEDS: ALBUTEROL SO4 2.5/IPRATROPIUM 0.5 INH SOL 3 ML VIAL.NEB. NEB PRN (09:35)
[2020-11-04] MEDS: MEGESTROL ACETATE 400 MG/10 ML UNIT DOSE CUP PO SCH (10:05)
[2020-11-04] MEDS: DOCUSATE SODIUM 100 MG CAPSULE (FP) PO SCH (10:06)
[2020-11-04] MEDS: BUDESONIDE/FORMETEROL FUMARATE 160/4.5 mcg INHALER IH SCH ×2 (10:07→21:41)
[2020-11-04] MEDS: NICOTINE 14 MG/24 HOURS TOPICAL PATCH TD SCH (10:07)
[2020-11-04] MEDS: NICOTINE POLACRILEX 2 MG GUM BUC PRN ×2 (10:07→21:42)
[2020-11-04] MEDS: PRENATAL VITAMINS W/ FOLIC ACID TABLET (FP) PO SCH (10:07)
[2020-11-04] MEDS ORDERED: SODIUM PHOSPHATE/NA BIPHOS 133 ML ENEMA RC ONE (13:34)
[2020-11-04] MEDS: QUEtiapine FUMARATE 50 MG TABLET PO SCH (21:40)
[2020-11-04] MEDS: MONTELUKAST NA 10 MG TABLET PO SCH (21:40)
[2020-11-04] MEDS: THIAMINE HCL 100 MG TABLET (FP) PO SCH (21:40)
[2020-11-04] MEDS: MELATONIN 5 MG TABLETS PO SCH (21:41)
[2020-11-05] MEDS: ALBUTEROL SO4 HFA INHALER IH SCH ×6 (00:55→20:25)
[2020-11-05] MEDS: ACETAMINOPHEN 325 MG TABLET (FP) PO PRN (02:14)
[2020-11-05] MEDS ORDERED: METHADONE HCL 40 MG DISPERSABLE TABLET ONE (05:12)
[2020-11-05] MEDS ORDERED: PT OWN MED DRAWER 7, Y5N ONE (05:12)
[2020-11-05] MEDS ORDERED: METHADONE HCL 10 MG TABLET ONE (05:12)
[2020-11-05] MEDS: METHADONE 120 MG, METHADONE 10 MG PO SCH (06:19)
[2020-11-05] MEDS: INSULIN SLIDING SCALE (NOVOLOG) 1 VIAL SQ SCH ×2 (06:54→16:31)
[2020-11-05] MEDS: metFORMIN HCL 500 MG TABLET (FP) PO SCH ×2 (07:27→16:31)
[2020-11-05] MEDS: BICTEGRAV/EMTRICIT/TENOFOV (BIKTARVY) 50-200-25 MG TABLET PO SCH (07:27)
[2020-11-05] MEDS: NICOTINE POLACRILEX 2 MG GUM BUC PRN (07:31)
[2020-11-05] MEDS: MEGESTROL ACETATE 400 MG/10 ML UNIT DOSE CUP PO SCH (09:48)
[2020-11-05] MEDS: DOCUSATE SODIUM 100 MG CAPSULE (FP) PO SCH (09:48)
[2020-11-05] MEDS: PRENATAL VITAMINS W/ FOLIC ACID TABLET (FP) PO SCH (09:48)
[2020-11-05] MEDS: NICOTINE 14 MG/24 HOURS TOPICAL PATCH TD SCH (09:49)
[2020-11-05] MEDS: BUDESONIDE/FORMETEROL FUMARATE 160/4.5 mcg INHALER IH SCH ×2 (09:50→21:28)
[2020-11-05] MEDS: THIAMINE HCL 100 MG TABLET (FP) PO SCH (21:27)
[2020-11-05] MEDS: MELATONIN 5 MG TABLETS PO SCH (21:28)
[2020-11-05] MEDS: MONTELUKAST NA 10 MG TABLET PO SCH (21:28)
[2020-11-05] MEDS: QUEtiapine FUMARATE 50 MG TABLET PO SCH (21:28)
[2020-11-06] MEDS: ALBUTEROL SO4 HFA INHALER IH SCH ×7 (00:21→23:34)
[2020-11-06] MEDS ORDERED: METHADONE HCL 40 MG DISPERSABLE TABLET ONE (04:22)
[2020-11-06] MEDS ORDERED: METHADONE HCL 10 MG TABLET ONE (04:23)
[2020-11-06] MEDS: METHADONE 120 MG, METHADONE 10 MG PO SCH (06:10)
[2020-11-06] MEDS: INSULIN SLIDING SCALE (NOVOLOG) 1 VIAL SQ SCH ×2 (07:34→16:31)
[2020-11-06] MEDS: metFORMIN HCL 500 MG TABLET (FP) PO SCH ×2 (07:34→16:30)
[2020-11-06] MEDS: BICTEGRAV/EMTRICIT/TENOFOV (BIKTARVY) 50-200-25 MG TABLET PO SCH (07:35)
[2020-11-06] MEDS: DOCUSATE SODIUM 100 MG CAPSULE (FP) PO SCH (10:20)
[2020-11-06] MEDS: MEGESTROL ACETATE 400 MG/10 ML UNIT DOSE CUP PO SCH (10:20)
[2020-11-06] MEDS: BUDESONIDE/FORMETEROL FUMARATE 160/4.5 mcg INHALER IH SCH ×2 (10:20→21:12)
[2020-11-06] MEDS: PRENATAL VITAMINS W/ FOLIC ACID TABLET (FP) PO SCH (10:20)
[2020-11-06] MEDS: NICOTINE 14 MG/24 HOURS TOPICAL PATCH TD SCH (10:21)
[2020-11-06] MEDS: NICOTINE POLACRILEX 2 MG GUM BUC PRN ×3 (10:21→21:39)
[2020-11-06] MEDS: ALBUTEROL SO4 2.5/IPRATROPIUM 0.5 INH SOL 3 ML VIAL.NEB. NEB PRN (11:21)
[2020-11-06] MEDS ORDERED: SULFAMETHOXAZOLE/TRIMETHOPRIM 800MG/160MG D.S. TABLET PO SCH (15:45)
[2020-11-06] MEDS ORDERED: PT OWN MED DRAWER 7, Y5N ONE ×2 (16:48→21:41)
[2020-11-06] MEDS: MAG HYDROX/AL HYDROX/SIMETH 30 ML UNIT-DOSE CUP PO PRN (18:52)
[2020-11-06] MEDS: AMOX TR/POT CLAV 500MG/125MG TABLETS (FP) PO SCH (18:52)
[2020-11-06] MEDS: QUEtiapine FUMARATE 50 MG TABLET PO SCH (21:12)
[2020-11-06] MEDS: THIAMINE HCL 100 MG TABLET (FP) PO SCH (21:12)
[2020-11-06] MEDS: MONTELUKAST NA 10 MG TABLET PO SCH (21:12)
[2020-11-06] MEDS: MELATONIN 5 MG TABLETS PO SCH (21:12)
[2020-11-07] MEDS: ACETAMINOPHEN 325 MG TABLET (FP) PO PRN (02:25)
[2020-11-07] MEDS ORDERED: METHADONE HCL 10 MG TABLET ONE (05:13)
[2020-11-07] MEDS ORDERED: METHADONE HCL 40 MG DISPERSABLE TABLET ONE (05:13)
[2020-11-07] MEDS: ALBUTEROL SO4 HFA INHALER IH SCH ×5 (05:36→20:40)
[2020-11-07] MEDS: METHADONE 120 MG, METHADONE 10 MG PO SCH (05:37)
[2020-11-07] MEDS: metFORMIN HCL 500 MG TABLET (FP) PO SCH ×2 (07:17→17:09)
[2020-11-07] MEDS: AMOX TR/POT CLAV 500MG/125MG TABLETS (FP) PO SCH ×2 (07:18→17:09)
[2020-11-07] MEDS: INSULIN SLIDING SCALE (NOVOLOG) 1 VIAL SQ SCH ×2 (07:20→17:37)
[2020-11-07] MEDS: BICTEGRAV/EMTRICIT/TENOFOV (BIKTARVY) 50-200-25 MG TABLET PO SCH (07:29)
[2020-11-07] MEDS: NICOTINE POLACRILEX 2 MG GUM BUC PRN (09:26)
[2020-11-07] MEDS: PRENATAL VITAMINS W/ FOLIC ACID TABLET (FP) PO SCH (10:16)
[2020-11-07] MEDS: NICOTINE 14 MG/24 HOURS TOPICAL PATCH TD SCH (10:16)
[2020-11-07] MEDS: DOCUSATE SODIUM 100 MG CAPSULE (FP) PO SCH (10:16)
[2020-11-07] MEDS: MEGESTROL ACETATE 400 MG/10 ML UNIT DOSE CUP PO SCH (10:16)
[2020-11-07] MEDS: BUDESONIDE/FORMETEROL FUMARATE 160/4.5 mcg INHALER IH SCH ×2 (10:17→21:40)
[2020-11-07] MEDS: MONTELUKAST NA 10 MG TABLET PO SCH (21:39)
[2020-11-07] MEDS: QUEtiapine FUMARATE 50 MG TABLET PO SCH (21:39)
[2020-11-07] MEDS: MELATONIN 5 MG TABLETS PO SCH (21:40)
[2020-11-07] MEDS: THIAMINE HCL 100 MG TABLET (FP) PO SCH (21:40)
[2020-11-08] MEDS: ALBUTEROL SO4 HFA INHALER IH SCH ×6 (02:50→21:34)
[2020-11-08] MEDS ORDERED: METHADONE HCL 10 MG TABLET ONE (04:57)
[2020-11-08] MEDS ORDERED: METHADONE HCL 40 MG DISPERSABLE TABLET ONE (04:57)
[2020-11-08] MEDS: METHADONE 120 MG, METHADONE 10 MG PO SCH (05:46)
[2020-11-08] MEDS: metFORMIN HCL 500 MG TABLET (FP) PO SCH ×2 (06:52→16:56)
[2020-11-08] MEDS: INSULIN SLIDING SCALE (NOVOLOG) 1 VIAL SQ SCH ×2 (06:54→16:58)
[2020-11-08] MEDS: MAG HYDROX/AL HYDROX/SIMETH 30 ML UNIT-DOSE CUP PO PRN ×2 (07:04→19:43)
[2020-11-08] MEDS: AMOX TR/POT CLAV 500MG/125MG TABLETS (FP) PO SCH ×2 (07:07→16:55)
[2020-11-08] MEDS: BICTEGRAV/EMTRICIT/TENOFOV (BIKTARVY) 50-200-25 MG TABLET PO SCH (07:07)
[2020-11-08] MEDS: DOCUSATE SODIUM 100 MG CAPSULE (FP) PO SCH (09:55)
[2020-11-08] MEDS: MEGESTROL ACETATE 400 MG/10 ML UNIT DOSE CUP PO SCH (09:55)
[2020-11-08] MEDS: NICOTINE 14 MG/24 HOURS TOPICAL PATCH TD SCH (09:55)
[2020-11-08] MEDS: PRENATAL VITAMINS W/ FOLIC ACID TABLET (FP) PO SCH (09:55)
[2020-11-08] MEDS: BUDESONIDE/FORMETEROL FUMARATE 160/4.5 mcg INHALER IH SCH ×2 (09:56→21:34)
[2020-11-08] MEDS: ALBUTEROL SO4 2.5/IPRATROPIUM 0.5 INH SOL 3 ML VIAL.NEB. NEB PRN (13:29)
[2020-11-08] MEDS ORDERED: PT OWN MED DRAWER 7, Y5N ONE (16:33)
[2020-11-08] MEDS: THIAMINE HCL 100 MG TABLET (FP) PO SCH (21:33)
[2020-11-08] MEDS: MONTELUKAST NA 10 MG TABLET PO SCH (21:33)
[2020-11-08] MEDS: QUEtiapine FUMARATE 50 MG TABLET PO SCH (21:33)
[2020-11-08] MEDS: MELATONIN 5 MG TABLETS PO SCH (21:34)
[2020-11-09] MEDS: ACETAMINOPHEN 325 MG TABLET (FP) PO PRN (01:03)
[2020-11-09] MEDS: MAG HYDROX/AL HYDROX/SIMETH 30 ML UNIT-DOSE CUP PO PRN (01:04)
[2020-11-09] MEDS: ALBUTEROL SO4 HFA INHALER IH SCH ×3 (04:00→08:04)
[2020-11-09] MEDS ORDERED: METHADONE HCL 40 MG DISPERSABLE TABLET ONE (05:23)
[2020-11-09] MEDS ORDERED: METHADONE HCL 10 MG TABLET ONE (05:23)
[2020-11-09] MEDS: METHADONE 120 MG, METHADONE 10 MG PO SCH (05:57)
[2020-11-09 06:57] VITALS: BP 138/74; PULSE 91; TEMP 97.7
[2020-11-09] MEDS: INSULIN SLIDING SCALE (NOVOLOG) 1 VIAL SQ SCH (07:06)
[2020-11-09] MEDS: AMOX TR/POT CLAV 500MG/125MG TABLETS (FP) PO SCH (08:03)
[2020-11-09] MEDS: BICTEGRAV/EMTRICIT/TENOFOV (BIKTARVY) 50-200-25 MG TABLET PO SCH (08:03)
[2020-11-09] MEDS: metFORMIN HCL 500 MG TABLET (FP) PO SCH (08:03)
[2020-11-09] MEDS ORDERED: PT OWN MED DRAWER 7, Y5N ONE (08:53)
[2020-11-09] MEDS: NICOTINE 14 MG/24 HOURS TOPICAL PATCH TD SCH (09:17)
[2020-11-09] MEDS: BUDESONIDE/FORMETEROL FUMARATE 160/4.5 mcg INHALER IH SCH (09:17)
[2020-11-09] MEDS: MEGESTROL ACETATE 400 MG/10 ML UNIT DOSE CUP PO SCH (09:17)
[2020-11-09] MEDS: DOCUSATE SODIUM 100 MG CAPSULE (FP) PO SCH (09:17)
[2020-11-09] MEDS: PRENATAL VITAMINS W/ FOLIC ACID TABLET (FP) PO SCH (09:18)
== END 2020-11-09 09:25 | disposition home or self-care (01) | DRG 773 ==
LOC: YASAS 12:28 → Y3W 12:29
PROVIDERS: ADMIT Allergy & Immunology; ATTEND Allergy & Immunology
PROC: HZ2ZZZZ Detoxification Services for Substance Abuse Treatment (ICD-10-PCS; principal; 2020-10-27)
DX: F10.20 Alcohol dependence, uncomplicated (principal); F11.20 Opioid dependence, uncomplicated; F12.20 Cannabis dependence, uncomplicated; F17.210 Nicotine dependence, cigarettes, uncomplicated; F19.282 Other psychoactive substance dependence with psychoactive substance-induced sleep disorder; Z21 Asymptomatic human immunodeficiency virus [HIV] infection status; J44.9 Chronic obstructive pulmonary disease, unspecified; D64.9 Anemia, unspecified; E11.9 Type 2 diabetes mellitus without complications; R35.0 Frequency of micturition; R35.8 Other polyuria; Z62.810 Personal history of physical and sexual abuse in childhood; Z79.4 Long term (current) use of insulin; Z79.84 Long term (current) use of oral hypoglycemic drugs
CPT/HCPCS: 81003; 82962; 87086; 94640

== ENCOUNTER 2024-12-27 12:49 | Inpatient (IN) | payer OTHER ==
[2024-12-27] MEDS ORDERED: POLYETHYLENE GLYCOL (HEALTHYLAX) 3350 17 GM PACKET PO PRN (14:02)
[2024-12-27] MEDS ORDERED: guaiFENesin 600 MG TABLET.ER (FP) PO PRN (14:02)
[2024-12-27] MEDS ORDERED: NALOXONE (NARCAN) HCL 4 MG/0.1 ML SPRAY NS PRN (14:02)
[2024-12-27] MEDS ORDERED: BENZOCAINE/MENTHOL (CHLORASEPTIC ) LOZENGE MM PRN (14:02)
[2024-12-27] MEDS ORDERED: BENZONATATE 200 MG CAPSULE PO PRN (14:02)
[2024-12-27] MEDS ORDERED: IBUPROFEN 600 MG TABLET (FP) PO PRN (14:02)
[2024-12-27 15:24] VITALS: BMI 19.3
[2024-12-27] MEDS: ALBUTEROL SO4 2.5/IPRATROPIUM 0.5 INH SOL 3 ML VIAL.NEB. NEB PRN (16:49)
[2024-12-27] MEDS: BUDESONIDE/FORMETEROL FUMARATE 160/4.5 mcg INHALER IH SCH (22:31)
[2024-12-27] MEDS: MONTELUKAST NA 10 MG TABLET PO SCH (22:31)
[2024-12-27] MEDS: THIAMINE 100 MG TABLET PO SCH (22:32)
[2024-12-27] MEDS: SODIUM CHLORIDE NASAL SPRAY 44 ML BOTTLE NS PRN (22:32)
[2024-12-27] MEDS: MELATONIN 5 MG TABLETS PO SCH (22:33)
[2024-12-28] MEDS: INSULIN ASPART SLIDING SCALE (NOVOLOG) 1 VIAL SQ SCH (06:07)
[2024-12-28] MEDS: metFORMIN HCL 500 MG TABLET (FP) PO SCH (06:07)
[2024-12-28] MEDS ORDERED: INSULIN ASPART SLIDING SCALE (NOVOLOG) 1 VIAL SQ SCH (07:00)
[2024-12-28] MEDS ORDERED: methaDONE HCL 10 MG TABLET PO SCH (08:45)
[2024-12-28] MEDS: PRENATAL VITAMINS W/ FOLIC ACID TABLET (FP) PO SCH (09:00)
[2024-12-28] MEDS: BICTEGRAV/EMTRICIT/TENOFOV (BIKTARVY) 50-200-25 MG TABLET PO SCH (09:02)
[2024-12-28 11:10] LABS: HEMATOCRIT 39.8 % (32.4-45.2); HEMOGLOBIN 12.2 GM/dL (10.7-15.3); MCHC 30.6 g/dl (32.0-36.0); MEAN CELL VOLUME 85.2 fl (80-96); MEAN PLT VOLUME 9.2 fl (7.5-11.1); PLATELET COUNT 158 10^3/uL (134-434); RBC 4.68 M/mm3 (3.60-5.2); WHITE BLOOD COUNT 2.9 K/mm3 (4.0-10.0)
[2024-12-28 12:23] LABS: POTASSIUM 3.4 mmol/L (3.5-5.1)
[2024-12-28 12:27] LABS: ALBUMIN 2.4 g/dl (3.4-5.0); BLOOD UREA NITROGEN 7.9 mg/dL (7-18); CALCIUM 8.2 mg/dL (8.5-10.1)
[2024-12-28 12:31] LABS: CREATININE 0.6 mg/dL (0.55-1.3)
[2024-12-28 12:32] LABS: BILIRUBIN,TOTAL 0.2 mg/dL (0.2-1); TOT PROT 5.8 g/dl (6.4-8.2)
[2024-12-28] MEDS: QUEtiapine FUMARATE 50 MG TABLET PO SCH (22:46)
[2024-12-28] MEDS: ACETAMINOPHEN 325 MG TABLET (FP) PO PRN (22:49)
[2024-12-29] MEDS: ONDANSETRON *ODT* 4 MG TABLET SL PRN (10:15)
[2024-12-29] MEDS: IBUPROFEN 400 MG TABLET (FP) PO PRN (10:15)
[2024-12-29] MEDS: AMOX TR/POT CLAV 875MG/125MG TABLETS (FP) PO SCH (11:33)
[2024-12-30] MEDS ORDERED: guaiFENesin 600 MG TABLET.ER (FP) PO PRN (10:36)
[2024-12-30] MEDS ORDERED: BENZONATATE 200 MG CAPSULE PO PRN (10:36)
[2024-12-30] MEDS ORDERED: methaDONE HCL 40 MG DISPERSABLE TABLET PO SCH (10:38)
[2024-12-30] MEDS: MEGESTROL ACETATE 400 MG/10 ML UNIT DOSE CUP PO SCH (11:42)
[2024-12-31] MEDS: LOPERAMIDE HCL 2 MG CAPSULE PO PRN (00:06)
[2024-12-31 09:28] LABS: PH,URINE 8.5 (5.0-8.0); URINE APPEARANCE CLEAR; URINE BILIRUBIN NEGATIVE (NEGATIVE); URINE COLOR YELLOW; URINE GLUCOSE (UA) NEGATIVE (NEGATIVE); URINE KETONE NEGATIVE (NEGATIVE); URINE LEUK ESTERASE NEGATIVE (NEGATIVE); URINE NITRITE NEGATIVE (NEGATIVE); URINE PROTEIN NEGATIVE (NEGATIVE)
[2024-12-31] MEDS ORDERED: INSULIN (NOVOLOG) ASPART 100 UNITS/ML 10ML VIAL ONE (16:53)
[2025-01-02] MEDS ORDERED: CALAMINE 8% TOPICAL LOTION 177 ML BOTTLE TP PRN (11:58)
[2025-01-02] MEDS: ALBUTEROL SO4 HFA INHALER IH PRN (17:34)
[2025-01-02] MEDS: MELATONIN 5 MG TABLETS PO SCH (21:32)
[2025-01-02] MEDS: BACLOFEN 10 MG TABLET (FP) PO SCH (21:34)
[2025-01-03] MEDS: QUEtiapine FUMARATE 25 MG TABLET PO SCH (21:26)
[2025-01-05] MEDS: OSELTAMIVIR PHOSPHATE 75 MG CAPSULE PO SCH (22:44)
[2025-01-06] MEDS: CHOLECALCIFEROL (VIT D3) 400 UNIT (10 MCG) TABLET PO SCH (10:24)
[2025-01-06] MEDS: DOCUSATE SODIUM 100 MG CAPSULE (FP) PO PRN (21:39)
[2025-01-10] MEDS: MAGNESIUM HYDROX 2400MG/30ML ORAL SUSPENSION 30 ML CUP PO PRN (17:42)
[2025-01-10] MEDS: MAG HYDROX/AL HYDROX/SIMETH 30 ML UNIT-DOSE CUP PO PRN (19:59)
[2025-01-11] MEDS: hydrOXYzine PAMOATE 25 MG CAPSULE (FP) PO PRN (17:44)
[2025-01-15] MEDS ORDERED: BACLOFEN 10 MG TABLET (FP) PO PRN (18:17)
[2025-01-16] MEDS: NICOTINE POLACRILEX 2 MG GUM BUC PRN (08:01)
[2025-01-16] MEDS ORDERED: SIMETHICONE 80 MG TAB.CHEW (FP) PO PRN (10:14)
[2025-01-16] MEDS: DOCUSATE NA 100 MG/10 ML UNIT-DOSE CUPS PO ONE (13:22)
[2025-01-16] MEDS: METOCLOPRAMIDE HCL 10 MG TABLET (FP) PO ONE (13:23)
[2025-01-16] MEDS: SODIUM PHOSPHATE/NA BIPHOS 133 ML ENEMA RC PRN (17:58)
[2025-01-17 07:05] VITALS: PULSE 97; RESP 16; TEMP 97.2
[2025-01-17 09:09] VITALS: BP 138/98
== END 2025-01-17 10:57 | disposition home or self-care (01) | DRG 772 ==
LOC: YASAS 12:49 → Y3NR 14:39 → Y5N 12-29 13:50
PROVIDERS: ADMIT Psychiatry & Neurology Pain Medicine; ATTEND Psychiatry & Neurology Pain Medicine
PROC: HZ42ZZZ Group Counseling for Substance Abuse Treatment, Cognitive-Behavioral (ICD-10-PCS; principal; 2024-12-27)
DX: F14.20 Cocaine dependence, uncomplicated (principal); F11.20 Opioid dependence, uncomplicated; F17.210 Nicotine dependence, cigarettes, uncomplicated; F19.282 Other psychoactive substance dependence with psychoactive substance-induced sleep disorder; F19.24 Other psychoactive substance dependence with psychoactive substance-induced mood disorder; Z21 Asymptomatic human immunodeficiency virus [HIV] infection status; I10 Essential (primary) hypertension; J44.1 Chronic obstructive pulmonary disease with (acute) exacerbation; J45.20 Mild intermittent asthma, uncomplicated; J20.9 Acute bronchitis, unspecified; D64.9 Anemia, unspecified; K59.00 Constipation, unspecified; L85.3 Xerosis cutis; Z20.828 Contact with and (suspected) exposure to other viral communicable diseases; Z79.899 Other long term (current) drug therapy
CPT/HCPCS: 36415; 71045-TC-FY; 80053; 80305; 80307; 81003; 82140; 82652; 82962; 83735; 85027; 86780; 86803; 87522; 87811; 93005; 93010; 94640; J0475; Q0162